=== PATIENT | male | born 1965 ===

== ENCOUNTER 2017-09-17 16:40 | Inpatient (IN) | payer OTHER ==
--- NOTE | 2017-09-17 18:04 | PDOC ---
History of Present Illness - General History Source: Patient Exam Limitations: No Limitations - History of Present Illness Initial Comments: 09/17/17 18:59 The patient is a 52-year-old male with no significant past medical history, who presents to the emergency department with bilateral foot pain for 3 weeks. Patient is homeless and states he is unable to walk secondary to the pain. He states that his feet feel mildly numb accompanied by a burning sensation to light touch. He also complains of intermittent chest pain. He denies any acute trauma or open wounds. The patient denies shortness of breath, headache and dizziness. The patient denies fever, chills, nausea, vomit, diarrhea, or urinary changes. <Sharyn Boyd - Last Filed: 09/17/17 19:00> <Vidal Cartagena - Last Filed: 09/18/17 19:09> <Dustin Nuñez - Last Filed: 09/19/17 17:02> - General Chief Complaint: Pain, Acute Stated Complaint: LEG PAIN Time Seen by Provider: 09/17/17 16:54 Past History <Sharyn Boyd - Last Filed: 09/17/17 19:00> <Vidal Cartagena - Last Filed: 09/18/17 19:09> - Past Medical History CVA: No COPD: No - Suicide/Smoking/Psychosocial Hx Smoking History: Never smoked Have you smoked in the past 12 months: No Number of Cigarettes Smoked Daily: 3 Information on smoking cessation initiated: No Hx Alcohol Use: No Drug/Substance Use Hx: No Substance Use Type: None <Dustin Nuñez - Last Filed: 09/19/17 17:02> - Past Medical History Allergies/Adverse Reactions: Allergies Allergy/AdvReac Type Severity Reaction Status Date / Time No Known Allergies Allergy Verified 09/17/17 17:02 Home Medications: Ambulatory Orders NK [No Known Home Medication] 09/17/17 Review of Systems - Review of Systems Able to Perform ROS?: Yes Comments:: 09/17/17 18:59 A complete review of 10 out of 10 review of systems is taken and is negative apart from what is previously mentioned below and in the HPI. <Sharyn Boyd - Last Filed: 09/17/17 19:00> *Physical Exam - Vital Signs Last Vital Signs Temp Pulse Resp BP Pulse Ox 97.8 F 110 H 18 112/74 100 09/17/17 16:40 09/17/17 16:40 09/17/17 16:40 09/17/17 16:40 09/17/17 16:40 - Physical Exam Comments: 09/17/17 18:59 Vitals: Triage Vital signs reviewed General Appearance: no acute distress, well nourished well developed, Head: Atraumatic, normocephalic Eyes: Pupils equal reactive round, extraocular movement intact Cardiac: Regular rate and rhythm, no murmurs, no rubs, no gallops, Lungs: Clear to auscultation bilateral, good air movement bilaterally, Extremities: Full range of motion to all extremities, no cyanosis, clubbing, or edema Skin: (+) Very poor foot hygiene. (+) Positive onychomycosis. Warm and dry, no rashes or lesions, no petechiae Neuro: AOX3; (+) Strength intact to all extremities but patient is unable to ambulate secondary to pain in his bilateral feet. Psych: normal mood, normal affect <Sharyn Boyd - Last Filed: 09/17/17 19:00> - Vital Signs Last Vital Signs Temp Pulse Resp BP Pulse Ox 97.8 F 110 H 18 112/74 100 09/17/17 16:40 09/17/17 16:40 09/17/17 16:40 09/17/17 16:40 09/17/17 16:40 <Vidal Cartagena - Last Filed: 09/18/17 19:09> - Vital Signs Last Vital Signs Temp Pulse Resp BP Pulse Ox 97.8 F 110 H 18 112/74 100 09/17/17 16:40 09/17/17 16:40 09/17/17 16:40 09/17/17 16:40 09/17/17 16:40 <Dustin Nuñez - Last Filed: 09/19/17 17:02> Heart Score/ECG Review - ECG Impressions Comment:: EKG performed [id number] demonstrates rate of 107, rhythm of sinus, axis equal to normal. No ST elevations no T-wave inversions Interpreted by me <Dustin Nuñez - Last Filed: 09/19/17 17:02> ED Treatment Course - LABORATORY CBC & Chemistry Diagram: 09/17/17 18:10 <Boyd,Sharyn - Last Filed: 09/17/17 19:00> - LABORATORY CBC & Chemistry Diagram: 09/18/17 06:00 09/18/17 06:00 - ADDITIONAL ORDERS Additional order review: 09/17/17 18:10 RBC 4.98 MCV 86.6 MCHC 33.9 RDW 13.1 MPV 7.5 Neutrophils % 83.5 H Lymphocytes % 7.9 L Monocytes % 6.5 Eosinophils % 1.3 Basophils % 0.8 - Medications Given in the ED: ED Medications Discontinued Medications Generic Name Dose Route Start Last Admin Trade Name Terry PRN Reason Stop Dose Admin Acetaminophen 1,000 mg 09/17/17 19:43 09/17/17 20:06 Ofirmev Injection - IVPB 09/17/17 19:44 1,000 mg ONCE ONE Administration Clindamycin Phosphate 600 mg in 50 mls @ 100 mls/hr 09/17/17 19:39 09/17/17 20:40 Cleocin 600 Mg Premix Ivpb - IVPB 09/17/17 20:08 100 mls/hr ONCE ONE Administration Sodium Chloride 1,633 ml 09/17/17 19:42 09/17/17 20:06 Normal Saline - 30 ml/kg (1633 ml) 09/17/17 19:43 1,633 ml IV Administration ONCE STA <Vidal Cartagena - Last Filed: 09/18/17 19:09> - LABORATORY CBC & Chemistry Diagram: 09/19/17 06:45 09/19/17 06:45 <Dustin Nuñez - Last Filed: 09/19/17 17:02> Medical Decision Making - Medical Decision Making 52 years old undomiciled no significant past medical history very poor foot hygiene presents to the ED complaining of pain to his feet bilaterally with inability to ambulate also complaining of very nonspecific intermittent chest discomfort comes and goes no change with exertion no nausea no vomiting On examination his feet are hot and warm to touch they appear chronic however patient was unable to ambulate with assistance We'll check labs x-ray EKG and reassess Reevaluation 7:30 patient's CBC returned at 17 given complaint of foot pain with warmth to touch patient states this is worse than usual we'll cover with clindamycin obtain blood cultures and x-rays and observe for cellulitis 7:30 PM labs pending blood cultures pending x-rays pending care signed out to to follow up labs and dispo A portion of this note was documented by scribe services under my direction I reviewed the details of note within reason and agree with the documentation with the following case summary and management plan written by me <Dustin Nuñez - Last Filed: 09/19/17 17:02> *DC/Admit/Observation/Transfer - Attestations Scribe Attestion: 09/17/17 18:59 Documentation prepared by Sharyn Boyd, acting as certified medical assistant for Dustin Nuñez MD, MD/DO. <Sharyn Boyd - Last Filed: 09/17/17 19:00> <Vidal Cartagena - Last Filed: 09/18/17 19:09> <Dustin Nuñez - Last Filed: 09/19/17 17:02> Diagnosis at time of Disposition: Inability to ambulate due to ankle or foot, Foot pain, bilateral, Bilateral lower leg cellulitis - Discharge Dispostion Condition at time of disposition: Stable
[2017-09-17 18:47] LABS: BASO % 0.8 % (0-2.0); EOS % 1.3 % (0-4.5); HEMATOCRIT 43.1 % (35.4-49); HEMOGLOBIN 14.6 GM/dL (11.7-16.9); LYMPH % 7.9 % (8-40); MCH 29.4 pg (25.7-33.7); MCHC 33.9 g/dl (32.0-35.9); MEAN CELL VOLUME 86.6 fl (80-96); MEAN PLT VOLUME 7.5 fl (7.5-11.1); MONO % 6.5 % (3.8-10.2); NEUT % 83.5 % (42.8-82.8); PLATELET COUNT 330 K/MM3 (134-434); RBC 4.98 M/mm3 (4.00-5.60); RDW 13.1 % (11.9-15.9); WHITE BLOOD COUNT 17.1 K/mm3 (4.0-10.0)
[2017-09-17] MEDS ORDERED: CLINDAMYCIN 600MG PREMIX IVPB 600 MG/50 ML BAG IVPB ONE ×2 (19:39→19:50)
[2017-09-17] MEDS ORDERED: SODIUM CHLORIDE 0.9% 1000 ML INFUS.BAG IV STA (19:42)
[2017-09-17] MEDS ORDERED: ACETAMINOPHEN 1000 MG/100 ML VIAL (NON FORMULARY) IVPB ONE (19:43)
[2017-09-17] MEDS ORDERED: ACETAMINOPHEN INJECTION 100 ML IVPB ONE (19:50)
[2017-09-17 22:07] LABS: PLATELET ESTIMATE ADEQUATE
[2017-09-17 22:10] LABS: ALBUMIN 2.8 g/dl (3.4-5.0); ANION GAP 8 (8-16); BLOOD UREA NITROGEN 20 mg/dL (7-18); CALCIUM 7.7 mg/dL (8.5-10.1); CHLORIDE 103 mmol/L (98-107); CO2 28 mmol/L (21-32); CREATININE 0.8 mg/dL (0.7-1.3); GLUCOSE,RANDOM 155 mg/dL (74-106); POTASSIUM 3.7 mmol/L (3.5-5.1); SGOT/AST 385 U/L (15-37); SGPT/ALT 75 U/L (12-78); SODIUM 139 mmol/L (136-145)
[2017-09-17 22:12] LABS: ALK PHOS 76 U/L (45-117); BILIRUBIN,TOTAL 0.4 mg/dL (0.2-1.0); TOT PROT 5.8 g/dl (6.4-8.2)
--- NOTE | 2017-09-17 23:35 | PDOC ---
*Physical Exam - Vital Signs Last Vital Signs Temp Pulse Resp BP Pulse Ox 97.8 F 110 H 18 112/74 100 09/17/17 16:40 09/17/17 16:40 09/17/17 16:40 09/17/17 16:40 09/17/17 16:40 ED Treatment Course - LABORATORY CBC & Chemistry Diagram: 09/17/17 18:10 09/17/17 20:45 - ADDITIONAL ORDERS Additional order review: Laboratory Results 09/17/17 09/17/17 09/17/17 20:45 20:45 20:45 Sodium 139 Potassium 3.7 Chloride 103 Carbon Dioxide 28 Anion Gap 8 BUN 20 H Creatinine 0.8 Creat Clearance w eGFR > 60 Random Glucose 155 H Lactic Acid 1.6 Calcium 7.7 L Total Bilirubin 0.4 AST 385 H ALT 75 Alkaline Phosphatase 76 Creatine Kinase 75339 H Troponin I < 0.02 Total Protein 5.8 L Albumin 2.8 L 09/17/17 18:10 RBC 4.98 MCV 86.6 MCHC 33.9 RDW 13.1 MPV 7.5 Neutrophils % 83.5 H Lymphocytes % 7.9 L Monocytes % 6.5 Eosinophils % 1.3 Basophils % 0.8 - Medications Given in the ED: ED Medications Discontinued Medications Generic Name Dose Route Start Last Admin Trade Name Freq PRN Reason Stop Dose Admin Acetaminophen 1,000 mg 09/17/17 19:43 09/17/17 20:06 Ofirmev Injection - IVPB 09/17/17 19:44 1,000 mg ONCE ONE Administration Clindamycin Phosphate 600 mg in 50 mls @ 100 mls/hr 09/17/17 19:39 09/17/17 20:40 Cleocin 600 Mg Premix Ivpb - IVPB 09/17/17 20:08 100 mls/hr ONCE ONE Administration Sodium Chloride 1,633 ml 09/17/17 19:42 09/17/17 20:06 Normal Saline - 30 ml/kg (1633 ml) 09/17/17 19:43 1,633 ml IV Administration ONCE STA *DC/Admit/Observation/Transfer Diagnosis at time of Disposition: Inability to ambulate due to ankle or foot, Foot pain, bilateral, Bilateral lower leg cellulitis - Discharge Dispostion Condition at time of disposition: Stable Admit: Yes - Referrals - Patient Instructions - Post Discharge Activity
[2017-09-18] MEDS ORDERED: SODIUM CHLORIDE 1,000 ML IV SCH (00:30)
--- NOTE | 2017-09-18 00:47 | PN ---
Teaching Attending Note Name of Resident: Liya Jose ATTENDING PHYSICIAN STATEMENT I saw and evaluated the patient. I reviewed the resident's note and discussed the case with the resident. I agree with the resident's findings and plan as documented. SUBJECTIVE: 52 M with no pmhx, but had not recently seen PCP who presents with bilateral foot pain. States pain has been there "awhile," but worsened today. notes he lies on the ground for hours at a time, due to the pain of walking. No chest pain or pressure. States he has lost weight due to diarrhea, but notes he has not had diarrhea recently because he does not mix food. Denies any fevers or chills. Also he thinks he is depressed due to his mothers passing several years ago. He does not want to hurt himself or others, but states he is in a "dark place." OBJECTIVE: Physical: VS: Vital Signs Period Temp Pulse Resp BP Sys/Bravo Pulse Ox Last 24 Hr 97.8 F 110 18 112/74 100 GEN: NAD, Resting in bed, AA0X3, Cachetic HEENT: NCAT, PERRL, Throat without erythema or exudates CARD: RRR S1, S2 RESP: CTAB ABD: BSx4, NTD to palpation EXT: Bilateral feet warm and erythmatous, no ulcerations seen, CBCD WBC 17.1 K/mm3 (4.0-10.0) H 09/17/17 18:10 RBC 4.98 M/mm3 (4.00-5.60) 09/17/17 18:10 Hgb 14.6 GM/dL (11.7-16.9) 09/17/17 18:10 Hct 43.1 % (35.4-49) 09/17/17 18:10 MCV 86.6 fl (80-96) 09/17/17 18:10 MCHC 33.9 g/dl (32.0-35.9) 09/17/17 18:10 RDW 13.1 % (11.9-15.9) 09/17/17 18:10 Plt Count 330 K/MM3 (134-434) 09/17/17 18:10 MPV 7.5 fl (7.5-11.1) 09/17/17 18:10 CMP Sodium 139 mmol/L (136-145) 09/17/17 20:45 Potassium 3.7 mmol/L (3.5-5.1) 09/17/17 20:45 Chloride 103 mmol/L (98-107) 09/17/17 20:45 Carbon Dioxide 28 mmol/L (21-32) 09/17/17 20:45 Anion Gap 8 (8-16) 09/17/17 20:45 BUN 20 mg/dL (7-18) H 09/17/17 20:45 Creatinine 0.8 mg/dL (0.7-1.3) 09/17/17 20:45 Creat Clearance w eGFR > 60 (>60) 09/17/17 20:45 Random Glucose 155 mg/dL (74-106) H 09/17/17 20:45 Calcium 7.7 mg/dL (8.5-10.1) L 09/17/17 20:45 Total Bilirubin 0.4 mg/dL (0.2-1.0) 09/17/17 20:45 AST 385 U/L (15-37) H 09/17/17 20:45 ALT 75 U/L (12-78) 09/17/17 20:45 Alkaline Phosphatase 76 U/L (45-117) 09/17/17 20:45 Total Protein 5.8 g/dl (6.4-8.2) L 09/17/17 20:45 Albumin 2.8 g/dl (3.4-5.0) L 09/17/17 20:45 CARDIAC ENZYMES Creatine Kinase 99470 IU/L (39-308) H 09/17/17 20:45 Troponin I < 0.02 ng/ml (0.00-0.05) 09/17/17 20:45 CXR- No acute proces Foot Xray- No acue process EKG: rate of 107, rhythm of sinus, axis equal to normal. No ST elevations no T-wave inversions ASSESSMENT AND PLAN: 52 M with no pmhx who presents with foot pain, found to have rhabdomyolysis and cellulitits 1.) Rhabdomyolysis - IVF - Repeat CK 2.) Bilateral Foot Cellulitis/Pain - ? Neuropathy - C/W Clindamycin - Cx 3.) Atypical Chest Pain - Denies currently - Trend Trop/Ekg 4.) Homeless - SW Consult 5.) Depression? - Psych. Consult 6.) Hyperglycemia - HgbA1c - Fs - RAISS 7.) Dvt Ppx - SCDs Place in Med-Sx
--- NOTE | 2017-09-18 00:51 | HP ---
CHIEF COMPLAINT: bilateral foot pain x 2 weeks PCP: HISTORY OF PRESENT ILLNESS: Pt is a 52 yo M with no signif. PMHx presenting with bilateral pain in his feet for 2 weeks. Pt describes the pain as burning in nature and severe enough to prevent him from weight bearing. There is associated swelling of both legs. No SOB, cough, palpitations or chest pain. Pt is homeless and lives in an alley and has been unable to move from the same position over the past days. No hx of fever, no dysuria, no hx of falls or known loss of consciousness. Pt has limited ingestion of food and described significant weight loss following watery diarrhea about 6 months ago. Pt said he has never been tested for TB, but was tested for HIV and was negative. He however said his last contact with a physician was 2004. Pt was teary when describing his family history as he said he lost his mother 3 years ago to DM and his sister to infection and has been unable to bounce back since then. He also described his unsuccessful attempts at securing housing. He denies drug/ alcohol use, but acknowledges cigarette use 3-8/ day. 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 Smokin-8 cigs/day Alcohol:Denies Drugs: Denies Family History: Father returned to [place]-healthy Mother 3yrs ago- was diabetic sister of 'infection" with diarrheal disease Allergies No Known Allergies Allergy (Verified 09/17/17 17:02) HOME MEDICATIONS: Home Medications Medication Instructions Recorded NK [No Known Home Medication] 09/17/17 REVIEW OF SYSTEMS CONSTITUTIONAL: Absent: fever, chills, diaphoresis, generalized weakness, malaise, loss of appetite, weight change HEENT: Absent: rhinorrhea, nasal congestion, throat pain, throat swelling, difficulty swallowing, mouth swelling, ear pain, eye pain, visual changes CARDIOVASCULAR: Absent: chest pain, syncope, palpitations, irregular heart rate, lightheadedness , peripheral edema RESPIRATORY: Absent: cough, shortness of breath, dyspnea with exertion, orthopnea, wheezing, stridor, hemoptysis GASTROINTESTINAL: Absent: abdominal pain, abdominal distension, nausea, vomiting, diarrhea, constipation, melena, hematochezia GENITOURINARY: Absent: dysuria, frequency, urgency, hesitancy, hematuria, flank pain, genital pain MUSCULOSKELETAL: Absent: myalgia, arthralgia, joint swelling, back pain, neck pain SKIN: Absent: rash, itching, pallor HEMATOLOGIC/IMMUNOLOGIC: Absent: easy bleeding, easy bruising, lymphadenopathy, frequent infections ENDOCRINE: Absent: unexplained weight gain, unexplained weight loss, heat intolerance, cold intolerance NEUROLOGIC: Absent: headache, focal weakness or paresthesias, dizziness, unsteady gait, seizure, mental status changes, bladder or bowel incontinence PSYCHIATRIC: Absent: anxiety, depression, suicidal or homicidal ideation, hallucinations. PHYSICAL EXAMINATION Vital Signs - 24 hr 09/17/17 16:40 Temperature 97.8 F Pulse Rate 110 H Respiratory 18 Rate Blood Pressure 112/74 O2 Sat by Pulse 100 Oximetry (%) GENERAL: Unkempt, cachectic, awake, alert, and oriented to person place and time , in no acute respiratory distress. HEAD: Normal with no signs of trauma. EYES: Pupils equal, round and reactive to light, extraocular movements intact, sclera anicteric, conjunctiva clear. EARS, NOSE, THROAT: Ears normal, nares patent, oropharynx clear without exudates. Moist mucous membranes. NECK: Normal range of motion, supple without lymphadenopathy, JVD, or masses. LUNGS: Prominent ribs, Breath sounds equal, clear to auscultation bilaterally. No wheezes, and no crackles. No accessory muscle use. HEART: S1 and S2 without murmur, rub or gallop. ABDOMEN: Scaphoid, Soft, nontender, normoactive bowel sounds, no guarding, no rebound, no masses. No CVA tenderness MUSCULOSKELETAL: Normal range of motion at all joints. No bony deformities or tenderness. No CVA tenderness. UPPER EXTREMITIES: 2+ pulses, warm, well-perfused. No peripheral edema. LOWER EXTREMITIES: 2+ pulses DP bilaterally, warm, well-perfused. No calf tenderness. Bilateral 1+ peripheral edema, mild hyperemia over ventral surface of feet bilaterally, mild tenderness bilaterally. Marked onychomycosis, with hyperkeratinized soles bilaterally, and dry sloughing soles. Normal sensation bilaterally. Normal tone, 5/5 strength globally NEUROLOGICAL: Cranial nerves II-XII intact. Normal speech. gait not observed PSYCHIATRIC: Talkative, sad, and crying. Good eye contact. Laboratory Results - last 24 hr 09/17/17 09/17/17 09/17/17 18:10 20:45 20:45 WBC 17.1 H RBC 4.98 Hgb 14.6 Hct 43.1 MCV 86.6 MCH 29.4 MCHC 33.9 RDW 13.1 Plt Count 330 MPV 7.5 Neutrophils % 83.5 H Lymphocytes % 7.9 L Monocytes % 6.5 Eosinophils % 1.3 Basophils % 0.8 Platelet Estimate Adequate Platelet Comment No clotting detected Sodium 139 Potassium 3.7 Chloride 103 Carbon Dioxide 28 Anion Gap 8 BUN 20 H Creatinine 0.8 Creat Clearance w eGFR > 60 Random Glucose 155 H Lactic Acid 1.6 Calcium 7.7 L Total Bilirubin 0.4 AST 385 H ALT 75 Alkaline Phosphatase 76 Creatine Kinase Creatine Kinase Index CK-MB (CK-2) Troponin I Total Protein 5.8 L Albumin 2.8 L 09/17/17 20:45 WBC RBC Hgb Hct MCV MCH MCHC RDW Plt Count MPV Neutrophils % Lymphocytes % Monocytes % Eosinophils % Basophils % Platelet Estimate Platelet Comment Sodium Potassium Chloride Carbon Dioxide Anion Gap BUN Creatinine Creat Clearance w eGFR Random Glucose Lactic Acid Calcium Total Bilirubin AST ALT Alkaline Phosphatase Creatine Kinase 79077 H Creatine Kinase Index 0.9 CK-MB (CK-2) 160.851 H Troponin I < 0.02 Total Protein Albumin ASSESSMENT/PLAN: 52 yo homeless tearful M with no signif. PMHx presenting with bilateral pain in his feet for 2 weeks. Sepsis 2/2 to Bilateral cellulitis of feet R/O peripheral neuropathy: WBC-17.1, OK-109 Likely 2/2 to onychomycosis Continue Clindamycin 600mg Q8H IVF Normal saline@125/hr Xray feet- no fracture or acute pathology glucose-155 Hgb A1c, family hx of DM Panculture CXR- no acute pathology, shows hyperinflation Bilateral Leg swelling: No evidence of pulm edema Could be due to cellulitis or nutritional deficiency [employer] work consult Xray- no evidence of fracture of or osteomyelitis CRP/ESR Rhabdomyolysis: No clear history of fall but pt [place] long [place]- [address]30 Negative trops IVF Normal saline@125/hr Hyperglycemia: Glu 155, family hx ISS-ACHS BGM-ACHS Diabetic diet Hgb A1c Major Depression R/O bipolar disease or drug use disorder: sad, tearing, unable to maintain a job since of mom Psych consult- Dr Bishop [place] Social works- homelessness FEN [id number] Monitor lytes and replete as needed Diabetic diet PPx: Visit type - Emergency Visit Emergency Visit: Yes ED Registration Date: 09/18/17 Care time: The patient presented to the Emergency Department on the above date and was hospitalized for further evaluation of their emergent condition. - New Patient This patient is new to me today: Yes Date on this admission: 09/18/17 - Critical Care Critical Care patient: No Hospitalist Screening - Colonoscopy Questionnaire Colonoscopy Questionnaire: Colonoscopy Questionnaire - Patient: 50 - 75 years old and never had a screening colonoscopy: Yes History of colon or rectal polyps, or CA: Unknown History of IBD, Crohn's disease or UC: Unknown History of abdominal radiation therapy as a child: Unknown - Relative: 1 with colon or rectal CA, or polyps at age 60 or younger: Unknown Colon or rectal CA diagnosed at age 45 or younger: Unknown Multiple relatives with colon or rectal CA: Unknown - Outcome: Screening Result: Positive Screen
[2017-09-18] MEDS ORDERED: FOLIC ACID INJECTION - 1 MG, THIAMINE HCL 100 MG, MULTIVIT INJECTION ADULT 10 ML in SOD... IVPB ONE ×2 (01:09→13:00)
[2017-09-18 01:49] LABS: URINE APPEARANCE CLEAR; URINE BILIRUBIN NEGATIVE (NEGATIVE); URINE COLOR DKYELLOW; URINE GLUCOSE (UA) NEGATIVE (NEGATIVE); URINE KETONE TRACE (NEGATIVE); URINE LEUK ESTERASE NEGATIVE (NEGATIVE); URINE NITRITE NEGATIVE (NEGATIVE)
[2017-09-18 01:57] LABS: URINE PROTEIN 1+ (NEGATIVE)
[2017-09-18] MEDS ORDERED: CLINDAMYCIN 600MG PREMIX IVPB 600 MG/50 ML BAG IVPB ONE (02:05)
[2017-09-18] MEDS: CLINDAMYCIN 600MG PREMIX IVPB 600 MG/50 ML BAG IVPB SCH ×2 (02:12→10:00)
[2017-09-18 03:09] LABS: EPI CELLS RARE /HPF (FEW); URINE BACTERIA FEW /hpf (NONE SEEN); URINE HYALINE CAST 1 /lpf; URINE MUCUS FEW
[2017-09-18 04:55] VITALS: BMI 15.4
[2017-09-18] MEDS: INSULIN SLIDING SCALE (NOVOLOG) 1 VIAL SQ SCH ×4 (06:24→21:04)
[2017-09-18] MEDS ORDERED: INSULIN SLIDING SCALE (NOVOLOG) 1 VIAL SQ SCH (07:00)
[2017-09-18 08:04] LABS: BASO % 0.8 % (0-2.0); EOS % 9.3 % (0-4.5); HEMATOCRIT 37.2 % (35.4-49); HEMOGLOBIN 12.5 GM/dL (11.7-16.9); LYMPH % 18.5 % (8-40); MCH 29.3 pg (25.7-33.7); MCHC 33.7 g/dl (32.0-35.9); MEAN CELL VOLUME 86.9 fl (80-96); MEAN PLT VOLUME 6.9 fl (7.5-11.1); MONO % 11.2 % (3.8-10.2); NEUT % 60.2 % (42.8-82.8); PLATELET COUNT 276 K/MM3 (134-434); RBC 4.28 M/mm3 (4.00-5.60); RDW 13.1 % (11.9-15.9); WHITE BLOOD COUNT 10.4 K/mm3 (4.0-10.0)
[2017-09-18 08:07] LABS: INR 1.04 (0.82-1.09); PROTHROMBIN TIME (PATIENT) 11.8 SEC (9.98-11.88)
[2017-09-18 08:10] LABS: ACTIVATED PTT 28.4 SECONDS (26.9-34.4)
[2017-09-18 08:20] LABS: ALBUMIN 2.8 g/dl (3.4-5.0); ANION GAP 6 (8-16); BILIRUBIN,TOTAL 0.6 mg/dL (0.2-1.0); CHLORIDE 106 mmol/L (98-107); CO2 29 mmol/L (21-32); CREATININE 0.6 mg/dL (0.7-1.3); GLUCOSE,RANDOM 94 mg/dL (74-106); MAGNESIUM 2.2 mg/dL (1.8-2.4); PHOSPHOROUS 3.4 mg/dL (2.5-4.9); POTASSIUM 4.3 mmol/L (3.5-5.1); SGOT/AST 336 U/L (15-37); SODIUM 141 mmol/L (136-145)
[2017-09-18 08:25] LABS: ALK PHOS 72 U/L (45-117); BLOOD UREA NITROGEN 15 mg/dL (7-18); SGPT/ALT 82 U/L (12-78); TOT PROT 5.8 g/dl (6.4-8.2)
[2017-09-18 09:07] LABS: COCAINE, UR NEGATIVE ng/ml (CUTOFF=300); METHADONE, UR NEGATIVE ng/ml (CUTOFF=300); OPIATES, URI NEGATIVE ng/ml (CUTOFF=300); PHENCYCLIDINE,URINE NEGATIVE ng/ml (CUTOFF=25); URINE AMPHETAMINES NEGATIVE ng/ml (CUTOFF=500); URINE BARBITURATES NEGATIVE ng/ml (CUTOFF=200); URINE BENZODIAZEPINES NEGATIVE ng/ml (CUTOFF=200)
[2017-09-18] MEDS ORDERED: THIAMINE HCL 200 MG/2 ML VIAL IVPB SCH (10:00)
[2017-09-18] MEDS ORDERED: MULTIVIT INJ. ADULT COMBO WITH VIT K 1 COMBO 10 ML VIAL IV SCH (10:00)
--- NOTE | 2017-09-18 10:39 | EKG ---
Test Reason : Blood Pressure : / mmHG Vent. Rate : 107 BPM Atrial Rate : 107 BPM P-R Int : 130 ms QRS Dur : 080 ms QT Int : 324 ms P-R-T Axes : 080 080 070 degrees QTc Int : 432 ms POOR DATA QUALITY, INTERPRETATION MAY BE ADVERSELY AFFECTED SINUS TACHYCARDIA POSSIBLE LEFT ATRIAL ENLARGEMENT BORDERLINE ECG NO PREVIOUS ECGS AVAILABLE Confirmed by AWA HINDS, CLAUDIA ([id number]) on 09/18/2017 10:39:08 AM Referred By: Confirmed By:CLAUDIA BILLINGS MD
[2017-09-18] MEDS: PANTOPRAZOLE 40 MG TABLET (FP) PO SCH (12:19)
[2017-09-18] MEDS ORDERED: THIAMINE HCL 200 MG/2 ML VIAL IVPB ONE (13:00)
--- NOTE | 2017-09-18 15:10 | PN ---
Teaching Attending Note Name of Resident: Gurwinder Looney ATTENDING PHYSICIAN STATEMENT I saw and evaluated the patient. I reviewed the resident's note and discussed the case with the resident. I agree with the resident's findings and plan as documented. SUBJECTIVE: no fever or chills, pain in feet . no pain in muscles . no N/V . reports weight loss. RUQ pain x 15 min this am , resolved at time of evaluation OBJECTIVE: NAD , thin , flat affect Cv :RRR Lungs : CTAB Abd: soft, N, ND , NL BS, RUQ tenderness and epigastrica tenderness Ext: no edema on legs . b/l tenderness and non pitting edema on feet . Dp 2+ b/ l. no erythema . slightly increased warmth of feet .no ulcers. scally skin on toes and doles ASSESSMENT AND PLAN: 52 y/o man with no recent medical care who presented with b/l foot pain and inability to ambulate . He was found to have Rhabdo 1- Acute rhabdomyoysis : due to prolonged immobilization - cont IVF - follow CPK 2- Feet pain: no signs of cellulitis . in addition b/l cellulitis is extremely rare. possible neuropathy probably acuteleukocytosis was due ot stress reactinand dehydration and now resolved . dc clinda and monitor check B12 , folate , give thiamine 3- RUQ pain: no clear etiology. AST and ALT elevation could be just due to rhabdo but can't r/o acute biliary etiology - check US of RUQ - follow LFTS 4- Weight loss: either to poor access to food, hypothyroidism. or malignancy - check TSH - check OB in stool - cxray with no masses - rest of cancer w/u as outpt dispo: HLOC
--- NOTE | 2017-09-18 16:53 | PN ---
Physical Exam: SUBJECTIVE: Patient seen and examined at bedside. complain of b/l feet pain , generalized weakness. no fever, chills , n/v/d/c. pt reports abdominal pain last few min. OBJECTIVE: Vital Signs Period Temp Pulse Resp BP Sys/Bravo Pulse Ox Last 24 Hr 96.2 F-98.8 F 84-97 16-20 96-117/60-74 97-100 GENERAL: AAOx3 , with fatigue and generalized weakness HEAD: NC/AT, long cano. EYES: EOMI, Conjunctiva clear, sclera anicteric ENT: dry mucous membrane , NECK: Supple, no JVD, no lymphadenoapthy LUNGS: CTA B/L, no crackles no wheezing no accessory muscle use. HEART: RRR, NSR, normal s1, s2, murmur no M/R/G ABDOMEN: Soft, ND, RUQ tenderness, +BS 4 Q, no CVA Tenderness LOWER EXTREMITIES: no leg edema but feet edema and tenderness, left leg warmer , scaly skin with no skin break +2DP pulse, no calf tenderness NEUROLOGICAL: No focal deficit. Normal speech. gait not observed. PSYCHIATRIC: Cooperative. Good eye contact. Appropriate mood and affect. SKIN: Warm, dry,skaly skin on feet with no skin break Laboratory Results - last 24 hr 09/17/17 09/17/17 09/17/17 18:10 20:45 20:45 WBC 17.1 H RBC 4.98 Hgb 14.6 Hct 43.1 MCV 86.6 MCH 29.4 MCHC 33.9 RDW 13.1 Plt Count 330 MPV 7.5 Neutrophils % 83.5 H Lymphocytes % 7.9 L Monocytes % 6.5 Eosinophils % 1.3 Basophils % 0.8 Platelet Estimate Adequate Platelet Comment No clotting detected ESR PT with INR INR PTT (Actin FS) Sodium 139 Potassium 3.7 Chloride 103 Carbon Dioxide 28 Anion Gap 8 BUN 20 H Creatinine 0.8 Creat Clearance w eGFR > 60 POC Glucometer Random Glucose 155 H Hemoglobin A1c % Lactic Acid 1.6 Calcium 7.7 L Phosphorus Magnesium Total Bilirubin 0.4 AST 385 H ALT 75 Alkaline Phosphatase 76 Creatine Kinase Creatine Kinase Index CK-MB (CK-2) Troponin I C-Reactive Protein Total Protein 5.8 L Albumin 2.8 L Lipase TSH Urine Color Urine Appearance Urine pH Ur Specific [place] Urine Protein Urine Glucose (UA) Urine Ketones Urine Blood Urine Nitrite Urine Bilirubin Urine Urobilinogen Ur Leukocyte Esterase Urine WBC (Auto) Urine RBC (Auto) Ur Epithelial Cells Urine Bacteria Hyaline Casts Urine Mucus Opiates Screen Methadone Screen Barbiturate Screen Phencyclidine Screen Ur Amphetamines Screen MDMA (Ecstasy) Screen Benzodiazepines Screen Cocaine Screen U Marijuana (THC) Screen 09/17/17 09/18/17 09/18/17 20:45 01:42 06:00 WBC 10.4 H D RBC 4.28 Hgb 12.5 D Hct 37.2 MCV 86.9 MCH 29.3 MCHC 33.7 RDW 13.1 Plt Count 276 MPV 6.9 L Neutrophils % 60.2 D Lymphocytes % 18.5 D Monocytes % 11.2 H Eosinophils % 9.3 H D Basophils % 0.8 Platelet Estimate Platelet Comment ESR PT with INR INR PTT (Actin FS) Sodium Potassium Chloride Carbon Dioxide Anion Gap BUN Creatinine Creat Clearance w eGFR POC Glucometer Random Glucose Hemoglobin A1c % Lactic Acid Calcium Phosphorus Magnesium Total Bilirubin AST ALT Alkaline Phosphatase Creatine Kinase 40481 H Creatine Kinase Index 0.9 CK-MB (CK-2) 160.851 H Troponin I < 0.02 C-Reactive Protein Total Protein Albumin Lipase TSH Urine Color Dkyellow Urine Appearance Clear Urine pH 6.0 Ur Specific [place] 1.034 Urine Protein 1+ H Urine Glucose (UA) Negative Urine Ketones Trace H Urine Blood 2+ H Urine Nitrite Negative Urine Bilirubin Negative Urine Urobilinogen 2.0 Ur Leukocyte Esterase Negative Urine WBC (Auto) 2 Urine RBC (Auto) 9 Ur Epithelial Cells Rare Urine Bacteria Few Hyaline Casts 1 Urine Mucus Few Opiates Screen Methadone Screen Barbiturate Screen Phencyclidine Screen Ur Amphetamines Screen MDMA (Ecstasy) Screen Benzodiazepines Screen Cocaine Screen U Marijuana (THC) Screen 09/18/17 09/18/17 09/18/17 06:00 06:00 06:00 WBC RBC Hgb Hct MCV MCH MCHC RDW Plt Count MPV Neutrophils % Lymphocytes % Monocytes % Eosinophils % Basophils % Platelet Estimate Platelet Comment ESR PT with INR 11.80 INR 1.04 PTT (Actin FS) 28.4 Sodium 141 Potassium 4.3 Chloride 106 Carbon Dioxide 29 Anion Gap 6 L BUN 15 D Creatinine 0.6 L D Creat Clearance w eGFR > 60 POC Glucometer Random Glucose 94 D Hemoglobin A1c % Lactic Acid Calcium 8.0 L Phosphorus 3.4 Magnesium 2.2 Total Bilirubin 0.6 D AST 336 H ALT 82 H Alkaline Phosphatase 72 Creatine Kinase 49741 H Creatine Kinase Index 0.6 CK-MB (CK-2) 77.592 H Troponin I C-Reactive Protein 2.4 H Total Protein 5.8 L Albumin 2.8 L Lipase 146 TSH 0.86 Urine Color Urine Appearance Urine pH Ur Specific [place] Urine Protein Urine Glucose (UA) Urine Ketones Urine Blood Urine Nitrite Urine Bilirubin Urine Urobilinogen Ur Leukocyte Esterase Urine WBC (Auto) Urine RBC (Auto) Ur Epithelial Cells Urine Bacteria Hyaline Casts Urine Mucus Opiates Screen Methadone Screen Barbiturate Screen Phencyclidine Screen Ur Amphetamines Screen MDMA (Ecstasy) Screen Benzodiazepines Screen Cocaine Screen U Marijuana (THC) Screen 09/18/17 09/18/17 09/18/17 06:00 06:00 06:00 WBC RBC Hgb Hct MCV MCH MCHC RDW Plt Count MPV Neutrophils % Lymphocytes % Monocytes % Eosinophils % Basophils % Platelet Estimate Platelet Comment ESR 15 PT with INR INR PTT (Actin FS) Sodium Potassium Chloride Carbon Dioxide Anion Gap BUN Creatinine Creat Clearance w eGFR POC Glucometer Random Glucose Hemoglobin A1c % 5.6 Lactic Acid Calcium Phosphorus Magnesium Total Bilirubin AST ALT Alkaline Phosphatase Creatine Kinase Cancelled Creatine Kinase Index CK-MB (CK-2) Troponin I C-Reactive Protein Total Protein Albumin Lipase TSH Urine Color Urine Appearance Urine pH Ur Specific [place] Urine Protein Urine Glucose (UA) Urine Ketones Urine Blood Urine Nitrite Urine Bilirubin Urine Urobilinogen Ur Leukocyte Esterase Urine WBC (Auto) Urine RBC (Auto) Ur Epithelial Cells Urine Bacteria Hyaline Casts Urine Mucus Opiates Screen Methadone Screen Barbiturate Screen Phencyclidine Screen Ur Amphetamines Screen MDMA (Ecstasy) Screen Benzodiazepines Screen Cocaine Screen U Marijuana (THC) Screen 09/18/17 09/18/17 06:30 11:16 WBC RBC Hgb Hct MCV MCH MCHC RDW Plt Count MPV Neutrophils % Lymphocytes % Monocytes % Eosinophils % Basophils % Platelet Estimate Platelet Comment ESR PT with INR INR PTT (Actin FS) Sodium Potassium Chloride Carbon Dioxide Anion Gap BUN Creatinine Creat Clearance w eGFR POC Glucometer 190 Random Glucose Hemoglobin A1c % Lactic Acid Calcium Phosphorus Magnesium Total Bilirubin AST ALT Alkaline Phosphatase Creatine Kinase Creatine Kinase Index CK-MB (CK-2) Troponin I C-Reactive Protein Total Protein Albumin Lipase TSH Urine Color Urine Appearance Urine pH Ur Specific [place] Urine Protein Urine Glucose (UA) Urine Ketones Urine Blood Urine Nitrite Urine Bilirubin Urine Urobilinogen Ur Leukocyte Esterase Urine WBC (Auto) Urine RBC (Auto) Ur Epithelial Cells Urine Bacteria Hyaline Casts Urine Mucus Opiates Screen Negative Methadone Screen Negative Barbiturate Screen Negative Phencyclidine Screen Negative Ur Amphetamines Screen Negative MDMA (Ecstasy) Screen Negative Benzodiazepines Screen Negative Cocaine Screen Negative U Marijuana (THC) Screen Negative Active Medications Generic Name Dose Route Start Last Admin Trade Name Freq PRN Reason Stop Dose Admin Sodium Chloride 1,000 mls @ 125 mls/hr 09/18/17 00:30 09/18/17 01:13 Normal Saline - IV 125 mls/hr ASDIR NARCISA Administration Folic Acid 1 mg/ Thiamine HCl 1,000 mls @ 125 mls/hr 09/18/17 13:00 09/18/17 13:30 100 mg/ Multivitamins/Minerals IVPB 09/18/17 20:59 125 mls/hr 10 ml/ Sodium Chloride ONCE ONE Administration Insulin Aspart 1 vial 09/18/17 07:00 09/18/17 16:30 Novolog Vial Sliding Scale - SQ Not Given ACHS [facility] Protocol Pantoprazole Sodium 40 mg 09/18/17 11:45 09/18/17 12:19 Protonix - PO 40 mg DAILY NARCISA Administration CBCD WBC 10.4 K/mm3 (4.0-10.0) H D 09/18/17 06:00 RBC 4.28 M/mm3 (4.00-5.60) 09/18/17 06:00 Hgb 12.5 GM/dL (11.7-16.9) D 09/18/17 06:00 Hct 37.2 % (35.4-49) 09/18/17 06:00 MCV 86.9 fl (80-96) 09/18/17 06:00 MCHC 33.7 g/dl (32.0-35.9) 09/18/17 06:00 RDW 13.1 % (11.9-15.9) 09/18/17 06:00 Plt Count 276 K/MM3 (134-434) 09/18/17 06:00 MPV 6.9 fl (7.5-11.1) L 09/18/17 06:00 CMP Sodium 141 mmol/L (136-145) 09/18/17 06:00 Potassium 4.3 mmol/L (3.5-5.1) 09/18/17 06:00 Chloride 106 mmol/L (98-107) 09/18/17 06:00 Carbon Dioxide 29 mmol/L (21-32) 09/18/17 06:00 Anion Gap 6 (8-16) L 09/18/17 06:00 BUN 15 mg/dL (7-18) D 09/18/17 06:00 Creatinine 0.6 mg/dL (0.7-1.3) L D 09/18/17 06:00 Creat Clearance w eGFR > 60 (>60) 09/18/17 06:00 Calcium 8.0 mg/dL (8.5-10.1) L 09/18/17 06:00 Total Bilirubin 0.6 mg/dL (0.2-1.0) D 09/18/17 06:00 AST 336 U/L (15-37) H 09/18/17 06:00 ALT 82 U/L (12-78) H 09/18/17 06:00 Alkaline Phosphatase 72 U/L (45-117) 09/18/17 06:00 Total Protein 5.8 g/dl (6.4-8.2) L 09/18/17 06:00 Albumin 2.8 g/dl (3.4-5.0) L 09/18/17 06:00 CBC, BMP 09/18/17 06:00 09/18/17 06:00 ASSESSMENT/PLAN: 52 year old homeless male with no pmh and no recent medical care who came to ED with 2 weeks history of feet pain and difficulty to ambulate and was found to have rhabdomyolysis . # Rhabdomyolysis * pt homeless , less mobile recently due to feet pain * CPK [id number]....[id number] * Continue IV fluids NS 125 CC/hr * Tylenol for pain 650 mg po q6hr * # Feet pain,B/L , Acute with possible peripheral neuropathy * unlikely cellulitis , possible nunez bite vs acute reaction to sever dehydration * IV fluids * pain control * B12, Folic acid * started multivitamin and B12 * # RUQ pain, Acute, unclear etiology * AST , LFT elevated possible due to rhabdo vs biliary cholic * US abdomen * F/u LFts * # weight loss * pt reports 20 pound weigh loss within one year possible low oral intake vs cancer vs another etiology * TSH , HgbA1c * Occult blood * cxr no acute pathology * F.u as out pt for complete work up. * High calorie diet. * # FEN * 100 CC/hr NS * E:WNL , monitor * N: high calories diet # Proph * DVT: SCDS both legs * GI: Protonix 40 mg po daily # Dispo * admit to med surg Visit type - Emergency Visit Emergency Visit: Yes ED Registration Date: 09/18/17 Care time: The patient presented to the Emergency Department on the above date and was hospitalized for further evaluation of their emergent condition. - New Patient This patient is new to me today: Yes Date on this admission: 09/18/17 - Critical Care Critical Care patient: No - Discharge Referral Referred to [facility] Med P.C.: No
[2017-09-18] MEDS ORDERED: INSULIN (NOVOLOG) ASPART 100 UNITS/ML 10ML VIAL ONE (18:28)
[2017-09-19] MEDS: SODIUM CHLORIDE 1,000 ML IV SCH (00:45)
[2017-09-19] MEDS: INSULIN SLIDING SCALE (NOVOLOG) 1 VIAL SQ SCH ×4 (06:10→21:27)
[2017-09-19 07:54] LABS: EOS % 10.5 % (0-4.5); HEMATOCRIT 35.3 % (35.4-49); HEMOGLOBIN 11.9 GM/dL (11.7-16.9); LYMPH % 26.2 % (8-40); MCH 29.6 pg (25.7-33.7); MCHC 33.8 g/dl (32.0-35.9); MEAN CELL VOLUME 87.6 fl (80-96); MEAN PLT VOLUME 6.9 fl (7.5-11.1); MONO % 10.6 % (3.8-10.2); NEUT % 51.7 % (42.8-82.8); PLATELET COUNT 250 K/MM3 (134-434); RBC 4.03 M/mm3 (4.00-5.60); RDW 13.1 % (11.9-15.9); WHITE BLOOD COUNT 8.9 K/mm3 (4.0-10.0)
[2017-09-19 08:15] LABS: ALBUMIN 2.5 g/dl (3.4-5.0); ANION GAP 10 (8-16); BILIRUBIN,TOTAL 0.2 mg/dL (0.2-1.0); BLOOD UREA NITROGEN 12 mg/dL (7-18); CALCIUM 7.9 mg/dL (8.5-10.1); CHLORIDE 105 mmol/L (98-107); CO2 26 mmol/L (21-32); CREATININE 0.5 mg/dL (0.7-1.3); GLUCOSE,RANDOM 82 mg/dL (74-106); POTASSIUM 4.2 mmol/L (3.5-5.1); SGOT/AST 215 U/L (15-37); SGPT/ALT 72 U/L (12-78); SODIUM 141 mmol/L (136-145); TOT PROT 5.6 g/dl (6.4-8.2)
[2017-09-19 08:29] LABS: PREALBUMIN 15.9 mg/dl (20-40)
[2017-09-19 08:40] LABS: ALK PHOS 62 U/L (45-117)
[2017-09-19] MEDS ORDERED: PT OWN MED DRAWER 7, Y5N ONE (09:12)
[2017-09-19] MEDS: MULTIVITAMINS (DAILY MVI) TABLET (FP) PO SCH (10:10)
[2017-09-19] MEDS: PANTOPRAZOLE 40 MG TABLET (FP) PO SCH (10:10)
[2017-09-19] MEDS: FOLIC ACID 1 MG TABLET (FP) PO SCH (10:10)
[2017-09-19] MEDS ORDERED: DOCUSATE SODIUM 100 MG CAPSULE (FP) PO ONE ×2 (10:51→15:00)
[2017-09-19] MEDS: POLYETHYLENE GLYCOL 3350 119 GM BTL PO SCH (11:00)
--- NOTE | 2017-09-19 12:37 | PN ---
Physical Exam: SUBJECTIVE: Patient seen and examined at bedside. complain of b/l feet pain , generalized weakness. no fever, chills , n/v/d/c. OBJECTIVE: Vital Signs Period Temp Pulse Resp BP Sys/Bravo Pulse Ox Last 24 Hr 98.1 F-98.8 F 75-97 18-20 93-117/54-68 98-100 GENERAL: AAOx3 , with fatigue and generalized weakness HEAD: NC/AT, long cano. EYES: EOMI, Conjunctiva clear, sclera anicteric ENT: dry mucous membrane , NECK: Supple, no JVD, no lymphadenoapthy LUNGS: CTA B/L, no crackles no wheezing no accessory muscle use. HEART: RRR, NSR, normal s1, s2, murmur no M/R/G ABDOMEN: Soft, ND, RUQ tenderness, +BS 4 Q, no CVA Tenderness LOWER EXTREMITIES: no leg edema but feet edema and tenderness, left leg warmer , scaly skin with no skin break +2DP pulse, no calf tenderness NEUROLOGICAL: No focal deficit. Normal speech. gait not observed. PSYCHIATRIC: Cooperative. Good eye contact. Appropriate mood and affect. SKIN: Warm, dry,skaly skin on feet with no skin break Laboratory Results - last 24 hr 09/18/17 09/18/17 09/18/17 06:23 16:23 20:43 WBC RBC Hgb Hct MCV MCH MCHC RDW Plt Count MPV Neutrophils % Lymphocytes % Monocytes % Eosinophils % Basophils % Sodium Potassium Chloride Carbon Dioxide Anion Gap BUN Creatinine Creat Clearance w eGFR POC Glucometer 254 107 128 Random Glucose Hemoglobin A1c % Calcium Total Bilirubin AST ALT Alkaline Phosphatase Creatine Kinase Creatine Kinase Index CK-MB (CK-2) Total Protein Albumin Prealbumin Vitamin B12 Serum Folate TSH 09/19/17 09/19/17 09/19/17 05:58 06:45 06:45 WBC RBC Hgb Hct MCV MCH MCHC RDW Plt Count MPV Neutrophils % Lymphocytes % Monocytes % Eosinophils % Basophils % Sodium 141 Potassium 4.2 Chloride 105 Carbon Dioxide 26 Anion Gap 10 BUN 12 Creatinine 0.5 L Creat Clearance w eGFR > 60 POC Glucometer 146 Random Glucose 82 Hemoglobin A1c % Calcium 7.9 L Total Bilirubin 0.2 D AST 215 H D ALT 72 Alkaline Phosphatase 62 Creatine Kinase Creatine Kinase Index CK-MB (CK-2) Total Protein 5.6 L Albumin 2.5 L Prealbumin 15.9 L Vitamin B12 403 Serum Folate 9 TSH 0.46 D 09/19/17 09/19/17 09/19/17 06:45 06:45 06:45 WBC 8.9 RBC 4.03 Hgb 11.9 Hct 35.3 L MCV 87.6 MCH 29.6 MCHC 33.8 RDW 13.1 Plt Count 250 MPV 6.9 L Neutrophils % 51.7 Lymphocytes % 26.2 D Monocytes % 10.6 H Eosinophils % 10.5 H Basophils % 1.0 Sodium Potassium Chloride Carbon Dioxide Anion Gap BUN Creatinine Creat Clearance w eGFR POC Glucometer Random Glucose Hemoglobin A1c % 5.7 D Calcium Total Bilirubin AST ALT Alkaline Phosphatase Creatine Kinase 6669 H Creatine Kinase Index 0.2 CK-MB (CK-2) 18.771 H Total Protein Albumin Prealbumin Vitamin B12 Serum Folate TSH Active Medications Generic Name Dose Route Start Last Admin Trade Name Freq PRN Reason Stop Dose Admin Folic Acid 1 mg 09/19/17 10:00 09/19/17 10:10 Folic Acid - PO 1 mg DAILY NARCISA Administration Sodium Chloride 1,000 mls @ 100 mls/hr 09/19/17 00:30 09/19/17 00:45 Normal Saline - IV 09/20/17 10:29 100 mls/hr ASDIR NARCISA Administration Insulin Aspart 1 vial 09/18/17 07:00 09/19/17 06:10 Novolog Vial Sliding Scale - SQ Not Given ACHS NARCISA Protocol Multivitamins/Minerals/Vitamin C 1 tab 09/19/17 10:00 09/19/17 10:10 Tab-A-Vit - PO 1 tab DAILY NARCISA Administration Pantoprazole Sodium 40 mg 09/18/17 11:45 09/19/17 10:10 Protonix - PO 40 mg DAILY NARCISA Administration Polyethylene Glycol 17 gm 09/19/17 11:00 Miralax (For Daily Use) - PO DAILY NARCISA Senna 1 tab 09/19/17 11:00 Senna - PO BID NARICSA CBC, BMP 09/19/17 06:45 09/19/17 06:45 ASSESSMENT/PLAN: 52 year old homeless male with no pmh and no recent medical care who came to ED with 2 weeks history of feet pain and difficulty to ambulate and was found to have rhabdomyolysis . # Rhabdomyolysis * pt homeless , less mobile recently due to feet pain * CPK [id number]....[id number] ....[id number] * Continue IV fluids NS 125 CC/hr * Tylenol for pain 650 mg po q6hr * # Feet pain,B/L , Acute with possible peripheral neuropathy * unlikely cellulites ,most likely nunez bite * IV fluids * pain control * B12, Folic acid normal * started multivitamin and B12 * # RUQ pain, Acute, improved * AST , LFT elevated, due to rhabdo vs biliary cholic , trending down * US abdomen * F/u LFts * # weight loss * pt reports 20 pound weigh loss within one year possible low oral intake vs cancer vs another etiology * TSH 0.86 , HgbA1c 5.6 * Occult blood negative * cxr no acute pathology * F.u as out pt for complete work up. * High calorie diet. * GI consulted for possible endoscopy , colonoscopy tomorrow # Depression * psychc consulted recommended Remeron 15mg po hs for depression and appetite. # FEN * 100 CC/hr NS * E:WNL , monitor * N: high calories diet # Proph * DVT: SCDS both legs * GI: Protonix 40 mg po daily # Dispo * admit to med surg Visit type - Emergency Visit Emergency Visit: Yes ED Registration Date: 09/18/17 Care time: The patient presented to the Emergency Department on the above date and was hospitalized for further evaluation of their emergent condition. - New Patient This patient is new to me today: Yes Date on this admission: 09/18/17 - Critical Care Critical Care patient: No - Discharge Referral Referred to [facility] Med P.C.: No
[2017-09-19] MEDS ORDERED: INSULIN (NOVOLOG) ASPART 100 UNITS/ML 10ML VIAL ONE ×2 (13:56→20:51)
--- NOTE | 2017-09-19 15:12 | CON.PSY ---
Psychiatry Consult Chief Complaint: 52 year old Homeless cecilia man seen for psych evaluation> Patient has been unemployed fopr the past 3 yrs and been living in Shelters. report of weight loss. Symptoms: reports: Depressed Mood - Previous Psychiatric Treatment Outpatient: None Inpatient: None - Previous Substance Abuse Treatment Outpatient: None Inpatient: None - Current Medications Current Medications: Active Medications Folic Acid (Folic Acid -) 1 mg PO DAILY [facility] Last Admin: 09/19/17 10:10 Dose: 1 mg Sodium Chloride (Normal Saline -) 1,000 mls @ 100 mls/hr IV ASDIR NARCISA Stop: 09/20/17 10:29 Last Admin: 09/19/17 00:45 Dose: 100 mls/hr Insulin Aspart (Novolog Vial Sliding Scale -) 1 vial SQ ACHS [facility] PRN Reason: Protocol Last Admin: 09/19/17 06:10 Dose: Not Given Multivitamins/Minerals/Vitamin C (Tab-A-Vit -) 1 tab PO DAILY [facility] Last Admin: 09/19/17 10:10 Dose: 1 tab Pantoprazole Sodium (Protonix -) 40 mg PO DAILY [facility] Last Admin: 09/19/17 10:10 Dose: 40 mg Polyethylene Glycol (Miralax (For Daily Use) -) 17 gm PO DAILY [facility] Senna (Senna -) 1 tab PO BID [facility] - Allergies Allergies: Allergies Allergy/AdvReac Type Severity Reaction Status Date / Time No Known Allergies Allergy Verified 09/17/17 17:02 - Current Living Status Usual Living Arrangement: Alone - Current Mental Status Evaluation Appearance: Disheveled Attitude: Guarded - Affect Affect: Constrictive Appropriateness: Appropriate to Content - Mood Mood: Depressed - Speech/Language Expressive: Coherent - Psychomotor Activity Psychomotor Activity: Slowed - Thought Process Thought Process: Intact - Thought Content Hallucinations: Absent Delusions: Absent - Self Perception Self Perception: No Impairment - Cognition Attention: Alert Orientation: Time Memory, Immediate Recall: Intact Memory, Short Term: 3/3 Memory, Remote with Promptin/3 - Concentration Serial Sevens Intact: Yes Simple Calculations Intact: Yes - Abstraction Proverb Interpretation: Intact Judgement: Intact - Insight Insight: Intact - Impulse Control Impulse Control: Good Control - Suicidal Ideation Suicidal Ideation: No - Homicidal Ideation Homicidal Ideation: No Assessment/Plan 1) Remeron 15mg po hs for depression and appetite.
--- NOTE | 2017-09-19 15:39 | PN ---
Teaching Attending Note Name of Resident: Gurwinder Looney ATTENDING PHYSICIAN STATEMENT I saw and evaluated the patient. I reviewed the resident's note and discussed the case with the resident. I agree with the resident's findings and plan as documented. SUBJECTIVE: no fever or chills, reports early satiety , and intermittent constipation still pain in feet OBJECTIVE: NAD , thin, more cooperative today Cv :RRR Lungs : CTAB Abd: soft, ND , NL BS, RUQ tenderness and epigastric tenderness improved frm yesterday Ext: no edema on legs . b/l tenderness and non pitting edema on feet . Dp 2+ b/ l and 2+ PT b/l . no erythema . nL warmth of feet .no ulcers. scally skin on toes and doles ASSESSMENT AND PLAN: 52 y/o man with no recent medical care who presented with b/l foot pain and inability to ambulate . He was found to have Rhabdo 1- Acute Rhabdomyoysis : due to prolonged immobilization - cont IVF - follow CPK ( improved ) 2- Feet pain: no signs of cellulitis . possible diagnosis is nunez bite ( grade 1 ) ? neuropathy - off Abx . - warming of feet 3- RUQ pain: no clear etiology. AST and ALT elevation could be just due to rhabdo but can't r/o acute biliary etiology - US of RUQ with no cholycystitis of CBD dilation - follow LFTS 4- Weight loss: either to poor access to food,. or malignancy . no hypothyroidism - check OB in stool - cxray with no masses - d/w Dr. Montes. EGD and colo tomorrow 5- malnutrition : dietitian consult dispo: [facility]
[2017-09-19] MEDS: SENNOSIDES 8.6MG TABLET (FP) PO SCH ×2 (15:52→21:27)
--- NOTE | 2017-09-19 16:01 | CON.GI ---
Consult Consult Specialty:: GI Reason for Consultation:: significant wt loss - History of Present Illness History of Present Illness: A 52M homeless x 3 years admitted with Rhabdomyolysis, isolates AST elevations, leukocytosis, lower extremities issues was discovered to have 20 lb weight loss over 1 months. Denies fever, chills, nausea, vomiting, hematemesis, dysphagia, odynophagia, jaundice, abdominal pain, altered bowels, pencil-thin, or ribbon- like stools. Denies melena, hematochezia. Poor diet x 3 year however no recent chages recently. Denies elicit drugs, alcohol, tobacco use. Never had screening colonoscopy. No significant family history. - History Source History Provided By: Patient - Alcohol/Substance Use Hx Alcohol Use: No - Smoking History Smoking history: Current some day smoker Have you smoked in the past 12 months: No Aproximately how many cigarettes per day: 3 - Social History Usual Living Arrangement: Alone Home Medications - Allergies Allergies/Adverse Reactions: Allergies Allergy/AdvReac Type Severity Reaction Status Date / Time No Known Allergies Allergy Verified 09/17/17 17:02 - Home Medications Home Medications: Ambulatory Orders NK [No Known Home Medication] 09/17/17 Family Disease History - Family Disease History Family History: Unremarkable Review of Systems Findings/Remarks: Please refer to HPI and H&P. Physical Exam-GI Vital Signs: Vital Signs Temperature 98.5 F 09/19/17 14:02 Pulse Rate 92 H 09/19/17 14:02 Respiratory Rate 18 09/19/17 14:02 Blood Pressure 95/50 09/19/17 14:02 O2 Sat by Pulse Oximetry (%) 98 09/18/17 20:59 Constitutional: Yes: No Distress, Calm, Cachectic, Poor Hygeine, Thin Eyes: Yes: Conjunctiva Clear HENT: Yes: Atraumatic Neck: Yes: Supple Cardiovascular: Yes: Regular Rate and Rhythm Respiratory: Yes: Regular ...Auscultate: Yes: Normoactive Bowel Sounds Neurological: Yes: Alert, Oriented Labs: CBC, BMP 09/19/17 06:45 09/19/17 06:45 INR, PTT INR 1.04 (0.82-1.09) 09/18/17 06:00 Laboratory Tests 09/17/17 09/17/17 09/17/17 18:10 20:45 20:45 WBC 17.1 H RBC 4.98 Hgb 14.6 Hct 43.1 MCV 86.6 MCH 29.4 MCHC 33.9 RDW 13.1 Plt Count 330 MPV 7.5 Neutrophils % 83.5 H Lymphocytes % 7.9 L Monocytes % 6.5 Eosinophils % 1.3 Basophils % 0.8 Platelet Estimate Adequate Platelet Comment No clotting detected ESR PT with INR INR PTT (Actin FS) Sodium 139 Potassium 3.7 Chloride 103 Carbon Dioxide 28 Anion Gap 8 BUN 20 H Creatinine 0.8 Creat Clearance w eGFR > 60 POC Glucometer Random Glucose 155 H Hemoglobin A1c % Lactic Acid 1.6 Calcium 7.7 L Phosphorus Magnesium Total Bilirubin 0.4 AST 385 H ALT 75 Alkaline Phosphatase 76 Creatine Kinase Creatine Kinase Index CK-MB (CK-2) Troponin I C-Reactive Protein Total Protein 5.8 L Albumin 2.8 L Prealbumin Lipase Vitamin B12 Serum Folate TSH Urine Color Urine Appearance Urine pH Ur Specific [place] Urine Protein Urine Glucose (UA) Urine Ketones Urine Blood Urine Nitrite Urine Bilirubin Urine Urobilinogen Ur Leukocyte Esterase Urine WBC (Auto) Urine RBC (Auto) Ur Epithelial Cells Urine Bacteria Hyaline Casts Urine Mucus Opiates Screen Methadone Screen Barbiturate Screen Phencyclidine Screen Ur Amphetamines Screen MDMA (Ecstasy) Screen Benzodiazepines Screen Cocaine Screen U Marijuana (THC) Screen 09/17/17 09/18/17 09/18/17 20:45 01:42 06:00 WBC 10.4 H D RBC 4.28 Hgb 12.5 D Hct 37.2 MCV 86.9 MCH 29.3 MCHC 33.7 RDW 13.1 Plt Count 276 MPV 6.9 L Neutrophils % 60.2 D Lymphocytes % 18.5 D Monocytes % 11.2 H Eosinophils % 9.3 H D Basophils % 0.8 Platelet Estimate Platelet Comment ESR PT with INR INR PTT (Actin FS) Sodium Potassium Chloride Carbon Dioxide Anion Gap BUN Creatinine Creat Clearance w eGFR POC Glucometer Random Glucose Hemoglobin A1c % Lactic Acid Calcium Phosphorus Magnesium Total Bilirubin AST ALT Alkaline Phosphatase Creatine Kinase 23688 H Creatine Kinase Index 0.9 CK-MB (CK-2) 160.851 H Troponin I < 0.02 C-Reactive Protein Total Protein Albumin Prealbumin Lipase Vitamin B12 Serum Folate TSH Urine Color Dkyellow Urine Appearance Clear Urine pH 6.0 Ur Specific [place] 1.034 Urine Protein 1+ H Urine Glucose (UA) Negative Urine Ketones Trace H Urine Blood 2+ H Urine Nitrite Negative Urine Bilirubin Negative Urine Urobilinogen 2.0 Ur Leukocyte Esterase Negative Urine WBC (Auto) 2 Urine RBC (Auto) 9 Ur Epithelial Cells Rare Urine Bacteria Few Hyaline Casts 1 Urine Mucus Few Opiates Screen Methadone Screen Barbiturate Screen Phencyclidine Screen Ur Amphetamines Screen MDMA (Ecstasy) Screen Benzodiazepines Screen Cocaine Screen U Marijuana (THC) Screen 09/18/17 09/18/17 09/18/17 06:00 06:00 06:00 WBC RBC Hgb Hct MCV MCH MCHC RDW Plt Count MPV Neutrophils % Lymphocytes % Monocytes % Eosinophils % Basophils % Platelet Estimate Platelet Comment ESR PT with INR 11.80 INR 1.04 PTT (Actin FS) 28.4 Sodium 141 Potassium 4.3 Chloride 106 Carbon Dioxide 29 Anion Gap 6 L BUN 15 D Creatinine 0.6 L D Creat Clearance w eGFR > 60 POC Glucometer Random Glucose 94 D Hemoglobin A1c % Lactic Acid Calcium 8.0 L Phosphorus 3.4 Magnesium 2.2 Total Bilirubin 0.6 D AST 336 H ALT 82 H Alkaline Phosphatase 72 Creatine Kinase 57495 H Creatine Kinase Index 0.6 CK-MB (CK-2) 77.592 H Troponin I C-Reactive Protein 2.4 H Total Protein 5.8 L Albumin 2.8 L Prealbumin Lipase 146 Vitamin B12 Serum Folate TSH 0.86 Urine Color Urine Appearance Urine pH Ur Specific [place] Urine Protein Urine Glucose (UA) Urine Ketones Urine Blood Urine Nitrite Urine Bilirubin Urine Urobilinogen Ur Leukocyte Esterase Urine WBC (Auto) Urine RBC (Auto) Ur Epithelial Cells Urine Bacteria Hyaline Casts Urine Mucus Opiates Screen Methadone Screen Barbiturate Screen Phencyclidine Screen Ur Amphetamines Screen MDMA (Ecstasy) Screen Benzodiazepines Screen Cocaine Screen U Marijuana (THC) Screen 09/18/17 09/18/17 09/18/17 06:00 06:00 06:00 WBC RBC Hgb Hct MCV MCH MCHC RDW Plt Count MPV Neutrophils % Lymphocytes % Monocytes % Eosinophils % Basophils % Platelet Estimate Platelet Comment ESR 15 PT with INR INR PTT (Actin FS) Sodium Potassium Chloride Carbon Dioxide Anion Gap BUN Creatinine Creat Clearance w eGFR POC Glucometer Random Glucose Hemoglobin A1c % 5.6 Lactic Acid Calcium Phosphorus Magnesium Total Bilirubin AST ALT Alkaline Phosphatase Creatine Kinase Cancelled Creatine Kinase Index CK-MB (CK-2) Troponin I C-Reactive Protein Total Protein Albumin Prealbumin Lipase Vitamin B12 Serum Folate TSH Urine Color Urine Appearance Urine pH Ur Specific [place] Urine Protein Urine Glucose (UA) Urine Ketones Urine Blood Urine Nitrite Urine Bilirubin Urine Urobilinogen Ur Leukocyte Esterase Urine WBC (Auto) Urine RBC (Auto) Ur Epithelial Cells Urine Bacteria Hyaline Casts Urine Mucus Opiates Screen Methadone Screen Barbiturate Screen Phencyclidine Screen Ur Amphetamines Screen MDMA (Ecstasy) Screen Benzodiazepines Screen Cocaine Screen U Marijuana (THC) Screen 09/18/17 09/18/17 09/18/17 06:23 06:30 11:16 WBC RBC Hgb Hct MCV MCH MCHC RDW Plt Count MPV Neutrophils % Lymphocytes % Monocytes % Eosinophils % Basophils % Platelet Estimate Platelet Comment ESR PT with INR INR PTT (Actin FS) Sodium Potassium Chloride Carbon Dioxide Anion Gap BUN Creatinine Creat Clearance w eGFR POC Glucometer 254 190 Random Glucose Hemoglobin A1c % Lactic Acid Calcium Phosphorus Magnesium Total Bilirubin AST ALT Alkaline Phosphatase Creatine Kinase Creatine Kinase Index CK-MB (CK-2) Troponin I C-Reactive Protein Total Protein Albumin Prealbumin Lipase Vitamin B12 Serum Folate TSH Urine Color Urine Appearance Urine pH Ur Specific [place] Urine Protein Urine Glucose (UA) Urine Ketones Urine Blood Urine Nitrite Urine Bilirubin Urine Urobilinogen Ur Leukocyte Esterase Urine WBC (Auto) Urine RBC (Auto) Ur Epithelial Cells Urine Bacteria Hyaline Casts Urine Mucus Opiates Screen Negative Methadone Screen Negative Barbiturate Screen Negative Phencyclidine Screen Negative Ur Amphetamines Screen Negative MDMA (Ecstasy) Screen Negative Benzodiazepines Screen Negative Cocaine Screen Negative U Marijuana (THC) Screen Negative 09/18/17 09/18/17 09/19/17 16:23 20:43 05:58 WBC RBC Hgb Hct MCV MCH MCHC RDW Plt Count MPV Neutrophils % Lymphocytes % Monocytes % Eosinophils % Basophils % Platelet Estimate Platelet Comment ESR PT with INR INR PTT (Actin FS) Sodium Potassium Chloride Carbon Dioxide Anion Gap BUN Creatinine Creat Clearance w eGFR POC Glucometer 107 128 146 Random Glucose Hemoglobin A1c % Lactic Acid Calcium Phosphorus Magnesium Total Bilirubin AST ALT Alkaline Phosphatase Creatine Kinase Creatine Kinase Index CK-MB (CK-2) Troponin I C-Reactive Protein Total Protein Albumin Prealbumin Lipase Vitamin B12 Serum Folate TSH Urine Color Urine Appearance Urine pH Ur Specific [place] Urine Protein Urine Glucose (UA) Urine Ketones Urine Blood Urine Nitrite Urine Bilirubin Urine Urobilinogen Ur Leukocyte Esterase Urine WBC (Auto) Urine RBC (Auto) Ur Epithelial Cells Urine Bacteria Hyaline Casts Urine Mucus Opiates Screen Methadone Screen Barbiturate Screen Phencyclidine Screen Ur Amphetamines Screen MDMA (Ecstasy) Screen Benzodiazepines Screen Cocaine Screen U Marijuana (THC) Screen 09/19/17 09/19/17 09/19/17 06:45 06:45 06:45 WBC RBC Hgb Hct MCV MCH MCHC RDW Plt Count MPV Neutrophils % Lymphocytes % Monocytes % Eosinophils % Basophils % Platelet Estimate Platelet Comment ESR PT with INR INR PTT (Actin FS) Sodium 141 Potassium 4.2 Chloride 105 Carbon Dioxide 26 Anion Gap 10 BUN 12 Creatinine 0.5 L Creat Clearance w eGFR > 60 POC Glucometer Random Glucose 82 Hemoglobin A1c % 5.7 D Lactic Acid Calcium 7.9 L Phosphorus Magnesium Total Bilirubin 0.2 D AST 215 H D ALT 72 Alkaline Phosphatase 62 Creatine Kinase Creatine Kinase Index CK-MB (CK-2) Troponin I C-Reactive Protein Total Protein 5.6 L Albumin 2.5 L Prealbumin 15.9 L Lipase Vitamin B12 403 Serum Folate 9 TSH 0.46 D Urine Color Urine Appearance Urine pH Ur Specific [place] Urine Protein Urine Glucose (UA) Urine Ketones Urine Blood Urine Nitrite Urine Bilirubin Urine Urobilinogen Ur Leukocyte Esterase Urine WBC (Auto) Urine RBC (Auto) Ur Epithelial Cells Urine Bacteria Hyaline Casts Urine Mucus Opiates Screen Methadone Screen Barbiturate Screen Phencyclidine Screen Ur Amphetamines Screen MDMA (Ecstasy) Screen Benzodiazepines Screen Cocaine Screen U Marijuana (THC) Screen 09/19/17 09/19/17 06:45 06:45 WBC 8.9 RBC 4.03 Hgb 11.9 Hct 35.3 L MCV 87.6 MCH 29.6 MCHC 33.8 RDW 13.1 Plt Count 250 MPV 6.9 L Neutrophils % 51.7 Lymphocytes % 26.2 D Monocytes % 10.6 H Eosinophils % 10.5 H Basophils % 1.0 Platelet Estimate Platelet Comment ESR PT with INR INR PTT (Actin FS) Sodium Potassium Chloride Carbon Dioxide Anion Gap BUN Creatinine Creat Clearance w eGFR POC Glucometer Random Glucose Hemoglobin A1c % Lactic Acid Calcium Phosphorus Magnesium Total Bilirubin AST ALT Alkaline Phosphatase Creatine Kinase 6669 H Creatine Kinase Index 0.2 CK-MB (CK-2) 18.771 H Troponin I C-Reactive Protein Total Protein Albumin Prealbumin Lipase Vitamin B12 Serum Folate TSH Urine Color Urine Appearance Urine pH Ur Specific [place] Urine Protein Urine Glucose (UA) Urine Ketones Urine Blood Urine Nitrite Urine Bilirubin Urine Urobilinogen Ur Leukocyte Esterase Urine WBC (Auto) Urine RBC (Auto) Ur Epithelial Cells Urine Bacteria Hyaline Casts Urine Mucus Opiates Screen Methadone Screen Barbiturate Screen Phencyclidine Screen Ur Amphetamines Screen MDMA (Ecstasy) Screen Benzodiazepines Screen Cocaine Screen U Marijuana (THC) Screen Imaging - Results Ultrasound: Report Reviewed Problem List - Problems (1) Rhabdomyolysis Code(s): M62.82 - RHABDOMYOLYSIS (2) Weight loss, abnormal Code(s): R63.4 - ABNORMAL WEIGHT LOSS (3) Bilateral lower leg cellulitis Code(s): L03.116 - CELLULITIS OF LEFT LOWER LIMB; L03.115 - CELLULITIS OF RIGHT LOWER LIMB Assessment/Plan abnormal, acute weight loss in a 52M Plan EGD/colonoscopy to r/o GI malignancy. Discussed with the patient. consider testing for HIV
[2017-09-19] MEDS ORDERED: BISACODYL 5 MG TABLET.DR (FP) PO ONE (16:07)
[2017-09-19] MEDS ORDERED: PEG 3350/NA SULF BICARB CL/KCL 4000 ML SOLN.RECON PO ONE (18:00)
[2017-09-19] MEDS: MIRTAZAPINE 15 MG TABLET (FP) PO SCH (21:27)
[2017-09-20] MEDS: SODIUM CHLORIDE 1,000 ML IV SCH ×2 (00:30→02:49)
[2017-09-20] MEDS ORDERED: morphine SULFATE 4 MG/ML VIAL IVPUSH ONE (02:08)
[2017-09-20] MEDS: INSULIN SLIDING SCALE (NOVOLOG) 1 VIAL SQ SCH ×4 (06:43→21:15)
[2017-09-20] MEDS ORDERED: INSULIN (NOVOLOG) ASPART 100 UNITS/ML 10ML VIAL ONE ×2 (06:44→11:00)
[2017-09-20 08:09] LABS: BASO % 0.6 % (0-2.0); EOS % 7.4 % (0-4.5); HEMATOCRIT 37.4 % (35.4-49); HEMOGLOBIN 12.4 GM/dL (11.7-16.9); MCH 29.1 pg (25.7-33.7); MCHC 33.1 g/dl (32.0-35.9); MEAN CELL VOLUME 87.9 fl (80-96); MEAN PLT VOLUME 6.9 fl (7.5-11.1); MONO % 6.7 % (3.8-10.2); NEUT % 70.3 % (42.8-82.8); PLATELET COUNT 285 K/MM3 (134-434); RBC 4.26 M/mm3 (4.00-5.60); RDW 13.2 % (11.9-15.9); WHITE BLOOD COUNT 9.2 K/mm3 (4.0-10.0)
[2017-09-20] MEDS ORDERED: LIDOCAINE HCL/PF 2% SDV 5ML VIAL ONE (08:36)
[2017-09-20] MEDS ORDERED: PHENYLEPHRINE HCL 10 MG/1 ML SINGLE DOSE VIAL ONE (08:37)
[2017-09-20] MEDS ORDERED: PROPOFOL 20 ML ONE ×5 (08:37)
[2017-09-20] MEDS ORDERED: LIDOCAINE VISCOUS 2% ORAL/TOP 20 ML UNIT-DOSE CUP ONE (08:37)
[2017-09-20] MEDS ORDERED: SUCCINYLCHOLINE CHLORIDE 200 MG/10 ML VIAL ONE (08:37)
[2017-09-20] MEDS ORDERED: TETRACAINE/BENZOCAINE/BUTAMBEN 20 GM SPR TP ONE (08:42)
[2017-09-20] MEDS: POLYETHYLENE GLYCOL 3350 119 GM BTL PO SCH (09:40)
[2017-09-20] MEDS: MULTIVITAMINS (DAILY MVI) TABLET (FP) PO SCH (09:40)
[2017-09-20] MEDS: FOLIC ACID 1 MG TABLET (FP) PO SCH (09:40)
[2017-09-20] MEDS: SENNOSIDES 8.6MG TABLET (FP) PO SCH ×2 (09:40→21:16)
[2017-09-20] MEDS: PANTOPRAZOLE 40 MG TABLET (FP) PO SCH (09:40)
[2017-09-20] MEDS ORDERED: GABAPENTIN 100 MG CAPSULE (FP) PO SCH (10:00)
[2017-09-20 10:08] LABS: ALBUMIN 3.1 g/dl (3.4-5.0); ALK PHOS 73 U/L (45-117); ANION GAP 8 (8-16); BILIRUBIN,DIRECT < 0.2 mg/dL (0.0-0.2); BILIRUBIN,TOTAL 0.3 mg/dL (0.2-1.0); BLOOD UREA NITROGEN 14 mg/dL (7-18); CALCIUM 7.8 mg/dL (8.5-10.1); CHLORIDE 105 mmol/L (98-107); CO2 27 mmol/L (21-32); CREATININE 0.7 mg/dL (0.7-1.3); GLUCOSE,RANDOM 71 mg/dL (74-106); SGOT/AST 212 U/L (15-37); SGPT/ALT 86 U/L (12-78); SODIUM 140 mmol/L (136-145); TOT PROT 6.1 g/dl (6.4-8.2)
--- NOTE | 2017-09-20 10:16 | PN ---
Progress Note, Physician History of Present Illness: Didn't take colon prep otherwise no events. - Current Medication List Current Medications: Active Medications Folic Acid (Folic Acid -) 1 mg PO DAILY [facility] Last Admin: 09/20/17 09:40 Dose: 1 mg Sodium Chloride (Normal Saline -) 1,000 mls @ 100 mls/hr IV ASDIR [facility] Stop: 09/20/17 10:29 Last Admin: 09/20/17 02:49 Dose: 100 mls/hr Insulin Aspart (Novolog Vial Sliding Scale -) 1 vial SQ ACHS [facility] PRN Reason: Protocol Last Admin: 09/20/17 06:43 Dose: Not Given Mirtazapine (Remeron -) 15 mg PO HS [facility] Last Admin: 09/19/17 21:27 Dose: 15 mg Multivitamins/Minerals/Vitamin C (Tab-A-Vit -) 1 tab PO DAILY [facility] Last Admin: 09/20/17 09:40 Dose: 1 tab Pantoprazole Sodium (Protonix -) 40 mg PO DAILY [facility] Last Admin: 09/20/17 09:40 Dose: 40 mg Polyethylene Glycol (Miralax (For Daily Use) -) 17 gm PO DAILY [facility] Last Admin: 09/20/17 09:40 Dose: Not Given Senna (Senna -) 1 tab PO BID [facility] Last Admin: 09/20/17 09:40 Dose: Not Given - Objective Vital Signs: Vital Signs Temperature 98.2 F 09/20/17 05:00 Pulse Rate 71 09/20/17 05:00 Respiratory Rate 18 09/20/17 05:00 Blood Pressure 115/51 09/20/17 05:00 O2 Sat by Pulse Oximetry (%) 96 09/20/17 00:00 Constitutional: Yes: No Distress, Calm, Thin Neurological: Yes: Alert, Oriented Labs: CBC, BMP 09/20/17 06:35 09/20/17 06:35 INR, PTT INR 1.04 (0.82-1.09) 09/18/17 06:00 CBCD WBC 9.2 K/mm3 (4.0-10.0) 09/20/17 06:35 RBC 4.26 M/mm3 (4.00-5.60) 09/20/17 06:35 Hgb 12.4 GM/dL (11.7-16.9) 09/20/17 06:35 Hct 37.4 % (35.4-49) 09/20/17 06:35 MCV 87.9 fl (80-96) 09/20/17 06:35 MCHC 33.1 g/dl (32.0-35.9) 09/20/17 06:35 RDW 13.2 % (11.9-15.9) 09/20/17 06:35 Plt Count 285 K/MM3 (134-434) 09/20/17 06:35 MPV 6.9 fl (7.5-11.1) L 09/20/17 06:35 CMP Sodium 140 mmol/L (136-145) 09/20/17 06:35 Potassium 4.0 mmol/L (3.5-5.1) 09/20/17 06:35 Chloride 105 mmol/L (98-107) 09/20/17 06:35 Carbon Dioxide 27 mmol/L (21-32) 09/20/17 06:35 Anion Gap 8 (8-16) 09/20/17 06:35 BUN 14 mg/dL (7-18) 09/20/17 06:35 Creatinine 0.7 mg/dL (0.7-1.3) D 09/20/17 06:35 Creat Clearance w eGFR > 60 (>60) 09/20/17 06:35 Calcium 7.8 mg/dL (8.5-10.1) L 09/20/17 06:35 Total Bilirubin 0.3 mg/dL (0.2-1.0) D 09/20/17 06:35 AST 212 U/L (15-37) H 09/20/17 06:35 ALT 86 U/L (12-78) H 09/20/17 06:35 Alkaline Phosphatase 73 U/L (45-117) 09/20/17 06:35 Total Protein 6.1 g/dl (6.4-8.2) L 09/20/17 06:35 Albumin 3.1 g/dl (3.4-5.0) L D 09/20/17 06:35 Problem List - Problems (1) Rhabdomyolysis Code(s): M62.82 - RHABDOMYOLYSIS (2) Weight loss, abnormal Code(s): R63.4 - ABNORMAL WEIGHT LOSS (3) Bilateral lower leg cellulitis Code(s): L03.116 - CELLULITIS OF LEFT LOWER LIMB; L03.115 - CELLULITIS OF RIGHT LOWER LIMB Assessment/Plan abnormal, acute weight loss in a 52M Plan EGD/colonoscopy to r/o GI malignancy, or consider CT with contrast A/P, CEA , AFP, CA 19-9 if unable to take prep. consider testing for HIV
--- NOTE | 2017-09-20 18:51 | PN ---
Physical Exam: SUBJECTIVE:Patient seen and examined at bedside. complain of b/l feet pain , numbness but leg swelling is improving, no fever, chills , n/v/d/c. OBJECTIVE: Vital Signs Period Temp Pulse Resp BP Sys/Bravo Pulse Ox Last 24 Hr 97.6 F-98.2 F 68-90 16-18 100-141/51-82 96-96 GENERAL: AAOx3 , with fatigue and generalized weakness HEAD: NC/AT, long cano. EYES: EOMI, Conjunctiva clear, sclera anicteric ENT: dry mucous membrane , NECK: Supple, no JVD, no lymphadenoapthy LUNGS: CTA B/L, no crackles no wheezing no accessory muscle use. HEART: RRR, NSR, normal s1, s2, murmur no M/R/G ABDOMEN: Soft, ND, RUQ tenderness, +BS 4 Q, no CVA Tenderness LOWER EXTREMITIES: no leg edema but feet edema and tenderness, left leg warmer , scaly skin with no skin break +2DP pulse, no calf tenderness NEUROLOGICAL: No focal deficit. Normal speech. gait not observed. PSYCHIATRIC: Cooperative. Good eye contact. Appropriate mood and affect. SKIN: Warm, dry,skaly skin on feet with no skin break Laboratory Results - last 24 hr 09/19/17 09/19/17 09/19/17 11:48 17:16 21:24 WBC RBC Hgb Hct MCV MCH MCHC RDW Plt Count MPV Neutrophils % Lymphocytes % Monocytes % Eosinophils % Basophils % Sodium Potassium Chloride Carbon Dioxide Anion Gap BUN Creatinine Creat Clearance w eGFR POC Glucometer 172 121 151 Random Glucose Calcium Total Bilirubin Direct Bilirubin AST ALT Alkaline Phosphatase Creatine Kinase Creatine Kinase Index CK-MB (CK-2) Total Protein Albumin Stool Occult Blood HIV 1&2 Antibody Screen HIV P24 Antigen 09/20/17 09/20/17 09/20/17 06:35 06:35 06:35 WBC 9.2 RBC 4.26 Hgb 12.4 Hct 37.4 MCV 87.9 MCH 29.1 MCHC 33.1 RDW 13.2 Plt Count 285 MPV 6.9 L Neutrophils % 70.3 D Lymphocytes % 15.0 D Monocytes % 6.7 Eosinophils % 7.4 H Basophils % 0.6 Sodium 140 Potassium 4.0 Chloride 105 Carbon Dioxide 27 Anion Gap 8 BUN 14 Creatinine 0.7 D Creat Clearance w eGFR > 60 POC Glucometer Random Glucose 71 L Calcium 7.8 L Total Bilirubin 0.3 D Direct Bilirubin < 0.2 AST 212 H ALT 86 H Alkaline Phosphatase 73 Creatine Kinase 4758 H Creatine Kinase Index 0.1 CK-MB (CK-2) 8.076 H Total Protein 6.1 L Albumin 3.1 L D Stool Occult Blood HIV 1&2 Antibody Screen Negative HIV P24 Antigen Negative 09/20/17 09/20/17 09/20/17 06:40 08:00 10:40 WBC RBC Hgb Hct MCV MCH MCHC RDW Plt Count MPV Neutrophils % Lymphocytes % Monocytes % Eosinophils % Basophils % Sodium Potassium Chloride Carbon Dioxide Anion Gap BUN Creatinine Creat Clearance w eGFR POC Glucometer 98 Random Glucose Calcium Total Bilirubin Direct Bilirubin AST ALT Alkaline Phosphatase Creatine Kinase Cancelled Creatine Kinase Index CK-MB (CK-2) Total Protein Albumin Stool Occult Blood Negative HIV 1&2 Antibody Screen HIV P24 Antigen 09/20/17 09/20/17 11:11 16:26 WBC RBC Hgb Hct MCV MCH MCHC RDW Plt Count MPV Neutrophils % Lymphocytes % Monocytes % Eosinophils % Basophils % Sodium Potassium Chloride Carbon Dioxide Anion Gap BUN Creatinine Creat Clearance w eGFR POC Glucometer 161 90 Random Glucose Calcium Total Bilirubin Direct Bilirubin AST ALT Alkaline Phosphatase Creatine Kinase Creatine Kinase Index CK-MB (CK-2) Total Protein Albumin Stool Occult Blood HIV 1&2 Antibody Screen HIV P24 Antigen Active Medications Generic Name Dose Route Start Last Admin Trade Name Freq PRN Reason Stop Dose Admin Folic Acid 1 mg 09/19/17 10:00 09/20/17 09:40 Folic Acid - PO 1 mg DAILY NARCISA Administration Insulin Aspart 1 vial 09/18/17 07:00 09/20/17 16:31 Novolog Vial Sliding Scale - SQ Not Given [facility] Protocol Mirtazapine 15 mg 09/19/17 22:00 09/19/17 21:27 Remeron - PO 15 mg HS NARCISA Administration Multivitamins/Minerals/Vitamin C 1 tab 09/19/17 10:00 09/20/17 09:40 Tab-A-Vit - PO 1 tab DAILY NARCISA Administration Pantoprazole Sodium 40 mg 09/18/17 11:45 09/20/17 09:40 Protonix - PO 40 mg DAILY [facility] Administration Polyethylene Glycol 17 gm 09/19/17 11:00 09/20/17 09:40 Miralax (For Daily Use) - PO Not Given DAILY NARCISA Senna 1 tab 09/19/17 11:00 09/20/17 09:40 Senna - PO Not Given BID NARCISA CBC, BMP 09/20/17 06:35 09/20/17 06:35 ASSESSMENT/PLAN: 52 year old homeless male with no pmh and no recent medical care who came to ED with 2 weeks history of feet pain and difficulty to ambulate and was found to have rhabdomyolysis . # Rhabdomyolysis * pt homeless , less mobile recently due to feet pain * CPK [id number] ....[id number] * Continue IV fluids NS 125 CC/hr * Tylenol for pain 650 mg po q6hr * # Feet pain,B/L , Acute with possible peripheral neuropathy * unlikely cellulitis ,most likely nunez bite * IV fluids * pain control * B12, Folic acid normal * started multivitamin and B12 * # RUQ pain, Acute, improved * AST , LFT elevated, due to rhabdo vs biliary cholic , trending down * US abdomen * F/u LFts * # weight loss * pt reports 20 pound weigh loss within one year possible low oral intake vs cancer vs another etiology * TSH 0.86 , HgbA1c 5.6 * Occult blood pending * cxr no acute pathology * F.u as out pt for complete work up. * High calorie diet. * GI consulted for possible endoscopy , colonoscopy tomorrow # Depression * psychconsulted recommended Remeron 15mg po hs for depression and appetite. # FEN * 100 CC/hr NS * E:WNL , monitor * N: high calories diet # Proph * DVT: SCDS both legs * GI: Protonix 40 mg po daily # Dispo * admit to med surg Visit type - Emergency Visit Emergency Visit: Yes ED Registration Date: 09/18/17 Care time: The patient presented to the Emergency Department on the above date and was hospitalized for further evaluation of their emergent condition. - New Patient This patient is new to me today: No - Critical Care Critical Care patient: No
--- NOTE | 2017-09-20 19:20 | PN ---
Teaching Attending Note Name of Resident: Gurwinder Looney ATTENDING PHYSICIAN STATEMENT I saw and evaluated the patient. I reviewed the resident's note and discussed the case with the resident. I agree with the resident's findings and plan as documented. SUBJECTIVE: no fever or chills. pain in feet was better . OBJECTIVE: NAD , thin, more cooperative today Cv :RRR Lungs : CTAB Ext: no edema on legs . b/l tenderness and non pitting edema on feet( much improved today ) . a blister on L foot dorsum . Dp 2+ b/l and 2+ PT b/l . no erythema . nL warmth of feet .no ulcers. scally skin on toes and doles ASSESSMENT AND PLAN: 52 y/o man with no recent medical care who presented with b/l foot pain and inability to ambulate . He was found to have Rhabdo 1- Acute Rhabdomyoysis : due to prolonged immobilization - cont IVF - follow CPK ( improved ) 2- Feet pain: no signs of cellulitis . possible diagnosis is nunez bite ( grade 2 )( blistering ) improved - off Abx . 3- RUQ pain: no clear etiology. AST and ALT elevation could be just due to rhabdo - follow LFTS 4- Weight loss: need to r/o malignancy did not comply with colon prep. - plan for EGD and colo on Saturday with miralx preb 5- malnutrition : dietitian consult dispo: OC
[2017-09-20] MEDS ORDERED: PT OWN MED DRAWER 7, Y5N ONE (20:19)
[2017-09-20] MEDS: MIRTAZAPINE 15 MG TABLET (FP) PO SCH (21:15)
[2017-09-21] MEDS ORDERED: IBUPROFEN 400 MG TABLET (FP) PO ONE ×2 (04:08→06:46)
[2017-09-21] MEDS: INSULIN SLIDING SCALE (NOVOLOG) 1 VIAL SQ SCH (06:18)
[2017-09-21] MEDS ORDERED: INSULIN (NOVOLOG) ASPART 100 UNITS/ML 10ML VIAL ONE (06:54)
[2017-09-21 09:04] LABS: ALBUMIN 2.8 g/dl (3.4-5.0); ANION GAP 7 (8-16); BLOOD UREA NITROGEN 17 mg/dL (7-18); CHLORIDE 106 mmol/L (98-107); CO2 27 mmol/L (21-32); GLUCOSE,RANDOM 111 mg/dL (74-106); POTASSIUM 4.3 mmol/L (3.5-5.1); SGOT/AST 108 U/L (15-37); SGPT/ALT 71 U/L (12-78); SODIUM 140 mmol/L (136-145)
[2017-09-21 09:07] LABS: ALK PHOS 72 U/L (45-117); BILIRUBIN,TOTAL 0.5 mg/dL (0.2-1.0); CREATININE 0.6 mg/dL (0.7-1.3)
[2017-09-21] MEDS: FOLIC ACID 1 MG TABLET (FP) PO SCH (10:43)
[2017-09-21] MEDS: MULTIVITAMINS (DAILY MVI) TABLET (FP) PO SCH (10:43)
[2017-09-21] MEDS: PANTOPRAZOLE 40 MG TABLET (FP) PO SCH (10:43)
[2017-09-21] MEDS: SENNOSIDES 8.6MG TABLET (FP) PO SCH ×2 (10:49→21:32)
[2017-09-21] MEDS: POLYETHYLENE GLYCOL 3350 119 GM BTL PO SCH (10:49)
[2017-09-21] MEDS: SODIUM CHLORIDE 1,000 ML IV SCH (12:00)
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
--- NOTE | 2017-09-21 14:27 | PN ---
Teaching Attending Note Name of Resident: Gurwinder Looney ATTENDING PHYSICIAN STATEMENT I saw and evaluated the patient. I reviewed the resident's note and discussed the case with the resident. I agree with the resident's findings and plan as documented. SUBJECTIVE: No fever or chills. still has pain in feet OBJECTIVE: NAD , thin, AAox3 Cv :RRR Lungs : CTAB Abd: soft, minimal TTP in epigastric area and RUQ> Ext: no edema on legs . b/l tenderness and non pitting edema on feet ( much improved today ) . a blister on L foot dorsum . Dp 2+ b/l and 2+ PT b/l . no erythema . nL warmth of feet .no ulcers. scaly skin on toes and soles ASSESSMENT AND PLAN: 52 y/o man with no recent medical care who presented with b/l foot pain and inability to ambulate . He was found to have Rhabdo 1- Acute Rhabdomyoysis : due to prolonged immobilization - cont IVF - follow CPK 2- Feet pain: no signs of cellulitis . possible diagnosis is nunez bite ( grade 2 ). possible concurring neuropathy improved - start neurontin - Ultram if needed. - start thiamine 3- RUQ pain: no clear etiology. AST and ALT elevation could be just due to rhabdo and improved . lipase nL. maybe related to constipation . - follow LFTS - bowel regimen 4- Weight loss: need to r/o malignancy - plan for EGD and colo on Saturday with miralx/gatarade preb 5- malnutrition : dietitian consult appreciated will start prosource, ensure and magic cup . dispo: HLOC
[2017-09-21] MEDS: traMADol HCL 50 MG TABLET PO PRN (16:35)
[2017-09-21] MEDS: GABAPENTIN 100 MG CAPSULE (FP) PO SCH ×2 (16:35→21:32)
[2017-09-21] MEDS: THIAMINE HCL 100 MG TABLET (FP) PO SCH ×2 (16:45→21:32)
[2017-09-21] MEDS ORDERED: PT OWN MED DRAWER 7, Y5N ONE (20:52)
[2017-09-21] MEDS: MIRTAZAPINE 15 MG TABLET (FP) PO SCH (21:32)
[2017-09-22] MEDS: traMADol HCL 50 MG TABLET PO PRN ×3 (00:46→23:09)
[2017-09-22] MEDS: SODIUM CHLORIDE 1,000 ML IV SCH ×2 (06:00→11:00)
[2017-09-22] MEDS: GABAPENTIN 100 MG CAPSULE (FP) PO SCH ×3 (06:00→21:30)
[2017-09-22 08:03] LABS: ANION GAP 9 (8-16); BLOOD UREA NITROGEN 15 mg/dL (7-18); CALCIUM 8.3 mg/dL (8.5-10.1); CHLORIDE 103 mmol/L (98-107); CO2 29 mmol/L (21-32); CREATININE 0.6 mg/dL (0.7-1.3); GLUCOSE,RANDOM 100 mg/dL (74-106); SODIUM 141 mmol/L (136-145)
[2017-09-22] MEDS: FOLIC ACID 1 MG TABLET (FP) PO SCH (10:56)
[2017-09-22] MEDS: POLYETHYLENE GLYCOL 3350 119 GM BTL PO SCH (10:57)
[2017-09-22] MEDS: MULTIVITAMINS (DAILY MVI) TABLET (FP) PO SCH (10:58)
[2017-09-22] MEDS: PANTOPRAZOLE 40 MG TABLET (FP) PO SCH (10:58)
[2017-09-22] MEDS: SENNOSIDES 8.6MG TABLET (FP) PO SCH ×2 (10:58→21:30)
[2017-09-22] MEDS: THIAMINE HCL 100 MG TABLET (FP) PO SCH ×2 (10:58→21:30)
--- NOTE | 2017-09-22 13:10 | PN ---
Progress Note (short form) - Note Progress Note: Subjective: pain in feet. no fever or chills. no abd pain . Objective: Vital Signs: Last Vital Signs Temp Pulse Resp BP Pulse Ox 97.5 F L 90 18 119/56 95 09/22/17 06:00 09/22/17 06:00 09/22/17 06:00 09/22/17 06:00 09/21/17 21:00 Laboratory Results - last 24 hr 09/21/17 09/22/17 08:15 06:00 Sodium 141 Potassium 4.0 Chloride 103 Carbon Dioxide 29 Anion Gap 9 BUN 15 Creatinine 0.6 L Random Glucose 100 Calcium 8.3 L Creatine Kinase 1897 H 709 H Creatine Kinase Index 0.1 0.3 CK-MB (CK-2) 3.247 2.139 Physical Exam: NAD , thin, AAox3 Cv :RRR Lungs : CTAB Abd: soft,NT , ND , NL BS Ext: no edema on legs . improved b/l tenderness and non pitting edema on feet . a blister on L foot dorsum ( smaller ) . Dp 2+ b/l and 2+ PT b/l . no erythema . nL warmth of feet .no ulcers. scaly skin on toes and soles ASSESSMENT AND PLAN: 52 y/o man with no recent medical care who presented with b/l foot pain and inability to ambulate . He was found to have Rhabdo 1- Acute Rhabdomyoysis : due to prolonged immobilization - cont IVF. -CPK 707 today 2- Feet pain: no signs of cellulitis . possible diagnosis is nunez bite ( grade 2 ). possible concurring neuropathy improved - cont neurontin - Ultram as needed - cont thiamine 3- RUQ pain: resolved 4- Weight loss: need to r/o malignancy - plan for EGD and colo tomorrow with miralx/gatarade preb this evening 5- Malnutrition: dietitian consult appreciated prosource, ensure and magic cup. dispo: HLOC cont PT Visit type - Emergency Visit Emergency Visit: Yes ED Registration Date: 09/18/17 Care time: The patient presented to the Emergency Department on the above date and was hospitalized for further evaluation of their emergent condition. - New Patient This patient is new to me today: No - Critical Care Critical Care patient: No
[2017-09-22] MEDS ORDERED: POLYETHYLENE GLYCOL 3350 255 GM BTL PO ONE (17:00)
[2017-09-22] MEDS ORDERED: PT OWN MED DRAWER 7, Y5N ONE (21:00)
[2017-09-22] MEDS: MIRTAZAPINE 15 MG TABLET (FP) PO SCH (21:30)
[2017-09-23] MEDS: GABAPENTIN 100 MG CAPSULE (FP) PO SCH ×2 (06:04→16:44)
--- NOTE | 2017-09-23 10:14 | PN ---
Progress Note, Physician History of Present Illness: Took miralax prep yesterday, however still has blown soft stools - Current Medication List Current Medications: Active Medications Folic Acid (Folic Acid -) 1 mg PO DAILY [facility] Last Admin: 09/22/17 10:56 Dose: 1 mg Gabapentin (Neurontin -) 100 mg PO TID [facility] Last Admin: 09/23/17 06:04 Dose: Not Given Sodium Chloride (Normal Saline -) 1,000 mls @ 100 mls/hr IV ASDIR [facility] Last Admin: 09/22/17 11:00 Dose: Not Given Mirtazapine (Remeron -) 15 mg PO HS [facility] Last Admin: 09/22/17 21:30 Dose: 15 mg Multivitamins/Minerals/Vitamin C (Tab-A-Vit -) 1 tab PO DAILY [facility] Last Admin: 09/22/17 10:58 Dose: 1 tab Pantoprazole Sodium (Protonix -) 40 mg PO DAILY [facility] Last Admin: 09/22/17 10:58 Dose: 40 mg Polyethylene Glycol (Miralax (For Daily Use) -) 17 gm PO DAILY [facility] Last Admin: 09/22/17 10:57 Dose: Not Given Senna (Senna -) 1 tab PO BID [facility] Last Admin: 09/22/17 21:30 Dose: 1 tab Thiamine HCl (Vitamin B1 -) 100 mg PO BID [facility] Last Admin: 09/22/17 21:30 Dose: 100 mg Tramadol HCl (Ultram -) 50 mg PO Q6H PRN PRN Reason: PAIN LEVEL 1 - 3 Last Admin: 09/22/17 23:09 Dose: 50 mg - Objective Vital Signs: Vital Signs Temperature 98.6 F 09/23/17 06:00 Pulse Rate 90 09/23/17 06:00 Respiratory Rate 18 09/23/17 06:00 Blood Pressure 119/62 09/23/17 06:00 O2 Sat by Pulse Oximetry (%) 95 09/22/17 20:41 Constitutional: Yes: No Distress, Calm Gastrointestinal: Yes: Soft Neurological: Yes: Alert, Oriented Labs: CBC, BMP 09/20/17 06:35 09/22/17 06:00 INR, PTT INR 1.04 (0.82-1.09) 09/18/17 06:00 CBCD WBC 9.2 K/mm3 (4.0-10.0) 09/20/17 06:35 RBC 4.26 M/mm3 (4.00-5.60) 09/20/17 06:35 Hgb 12.4 GM/dL (11.7-16.9) 09/20/17 06:35 Hct 37.4 % (35.4-49) 09/20/17 06:35 MCV 87.9 fl (80-96) 09/20/17 06:35 MCHC 33.1 g/dl (32.0-35.9) 09/20/17 06:35 RDW 13.2 % (11.9-15.9) 09/20/17 06:35 Plt Count 285 K/MM3 (134-434) 09/20/17 06:35 MPV 6.9 fl (7.5-11.1) L 09/20/17 06:35 CMP Sodium 141 mmol/L (136-145) 09/22/17 06:00 Potassium 4.0 mmol/L (3.5-5.1) 09/22/17 06:00 Chloride 103 mmol/L (98-107) 09/22/17 06:00 Carbon Dioxide 29 mmol/L (21-32) 09/22/17 06:00 Anion Gap 9 (8-16) 09/22/17 06:00 BUN 15 mg/dL (7-18) 09/22/17 06:00 Creatinine 0.6 mg/dL (0.7-1.3) L 09/22/17 06:00 Creat Clearance w eGFR > 60 (>60) 09/21/17 08:15 Calcium 8.3 mg/dL (8.5-10.1) L 09/22/17 06:00 Total Bilirubin 0.5 mg/dL (0.2-1.0) D 09/21/17 08:15 AST 108 U/L (15-37) H D 09/21/17 08:15 ALT 71 U/L (12-78) 09/21/17 08:15 Alkaline Phosphatase 72 U/L (45-117) 09/21/17 08:15 Total Protein 6.0 g/dl (6.4-8.2) L 09/21/17 08:15 Albumin 2.8 g/dl (3.4-5.0) L 09/21/17 08:15 Problem List - Problems (1) Rhabdomyolysis Code(s): M62.82 - RHABDOMYOLYSIS (2) Weight loss, abnormal Code(s): R63.4 - ABNORMAL WEIGHT LOSS (3) Bilateral lower leg cellulitis Code(s): L03.116 - CELLULITIS OF LEFT LOWER LIMB; L03.115 - CELLULITIS OF RIGHT LOWER LIMB Assessment/Plan abnormal, acute weight loss in a 52M Plan EGD/colonoscopy to r/o GI malignancy tomorrow morning repeat miralax/Gatorade bowel prep today
[2017-09-23] MEDS ORDERED: BISACODYL 5 MG TABLET.DR (FP) PO ONE ×2 (10:30→17:00)
[2017-09-23] MEDS: SENNOSIDES 8.6MG TABLET (FP) PO SCH ×2 (12:25→21:28)
[2017-09-23] MEDS: PANTOPRAZOLE 40 MG TABLET (FP) PO SCH (12:25)
[2017-09-23] MEDS: THIAMINE HCL 100 MG TABLET (FP) PO SCH ×2 (12:25→21:28)
[2017-09-23] MEDS: SODIUM CHLORIDE 1,000 ML IV SCH ×2 (12:25→16:50)
[2017-09-23] MEDS: FOLIC ACID 1 MG TABLET (FP) PO SCH (12:25)
[2017-09-23] MEDS: MULTIVITAMINS (DAILY MVI) TABLET (FP) PO SCH (12:25)
[2017-09-23] MEDS: POLYETHYLENE GLYCOL 3350 119 GM BTL PO SCH (12:26)
--- NOTE | 2017-09-23 15:48 | PN ---
Teaching Attending Note Name of Resident: Cathie Farr ATTENDING PHYSICIAN STATEMENT I saw and evaluated the patient. I reviewed the resident's note and discussed the case with the resident. I agree with the resident's findings and plan as documented. SUBJECTIVE: no fever or chills. has no abd pain, has pain in feet . OBJECTIVE: NAD , thin, AAox3 Cv :RRR Lungs : CTAB Abd: soft,NT , ND , NL BS Ext: no edema on legs . improved b/l tenderness on feet . improved non pitting edema on feet. Dp 2+ b/l and 2+ PT b/l . no erythema . nL warmth of feet .no ulcers. scaly skin on toes and soles ASSESSMENT AND PLAN: 52 y/o man with no recent medical care who presented with b/l foot pain and inability to ambulate . He was found to have Rhabdo 1- Acute Rhabdomyoysis : due to prolonged immobilization -cont IVF till am , then dc 2- Feet pain: no signs of cellulitis. possible diagnosis is nunez bite ( grade 2 ). possible concurring neuropathy improved but still limiting his ability to walk - increase neurontin - Ultram as needed - cont thiamine 3- RUQ pain: resolved 4- Weight loss: need to r/o malignancy - EGD and colo tomorrow as he did not clean with prep last night 5- Malnutrition: dietitian consult appreciated prosource, ensure and magic cup when back to regular diet . dispo: HLOC cont PT
[2017-09-23] MEDS ORDERED: POLYETHYLENE GLYCOL 3350 255 GM BTL PO ONE (17:00)
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
[2017-09-23] MEDS: traMADol HCL 50 MG TABLET PO PRN (19:59)
[2017-09-23] MEDS ORDERED: PT OWN MED DRAWER 7, Y5N ONE (21:11)
[2017-09-23] MEDS: GABAPENTIN 300 MG CAPSULE (FP) PO SCH (21:28)
[2017-09-23] MEDS: MIRTAZAPINE 15 MG TABLET (FP) PO SCH (21:28)
[2017-09-24] MEDS: SODIUM CHLORIDE 1,000 ML IV SCH ×2 (04:39→11:06)
[2017-09-24] MEDS: traMADol HCL 50 MG TABLET PO PRN ×2 (04:39→22:21)
[2017-09-24] MEDS ORDERED: PROPOFOL 20 ML ONE ×2 (07:55)
[2017-09-24 08:12] LABS: ANION GAP 8 (8-16); BLOOD UREA NITROGEN 7 mg/dL (7-18); CALCIUM 8.6 mg/dL (8.5-10.1); CHLORIDE 101 mmol/L (98-107); CO2 31 mmol/L (21-32); MAGNESIUM 2.3 mg/dL (1.8-2.4); POTASSIUM 4.3 mmol/L (3.5-5.1); SODIUM 140 mmol/L (136-145)
[2017-09-24 08:15] LABS: CREATININE 0.7 mg/dL (0.7-1.3); GLUCOSE,RANDOM 89 mg/dL (74-106); PHOSPHOROUS 4.8 mg/dL (2.5-4.9)
--- NOTE | 2017-09-24 08:39 | PROC ---
Endoscopy Procedure Endoscopy procedure completed. Please see scanned procedure report. Mild esophagitis was found, biopsies taken. Normal EGD otherwise. Normal colonoscopy to the cecum.
[2017-09-24] MEDS: SENNOSIDES 8.6MG TABLET (FP) PO SCH ×2 (11:06→22:24)
[2017-09-24] MEDS: THIAMINE HCL 100 MG TABLET (FP) PO SCH ×2 (11:06→22:21)
[2017-09-24] MEDS: MULTIVITAMINS (DAILY MVI) TABLET (FP) PO SCH (11:06)
[2017-09-24] MEDS: GABAPENTIN 300 MG CAPSULE (FP) PO SCH ×2 (11:07→22:21)
[2017-09-24] MEDS: FOLIC ACID 1 MG TABLET (FP) PO SCH (11:07)
[2017-09-24] MEDS: POLYETHYLENE GLYCOL 3350 119 GM BTL PO SCH (11:07)
[2017-09-24] MEDS: PANTOPRAZOLE 40 MG TABLET (FP) PO SCH (11:07)
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
--- NOTE | 2017-09-24 18:16 | PN ---
Teaching Attending Note Name of Resident: Benja Guillaume ATTENDING PHYSICIAN STATEMENT I saw and evaluated the patient. I reviewed the resident's note and discussed the case with the resident. I agree with the resident's findings and plan as documented. SUBJECTIVE: No fever or chills , has pain in feet still . no abd pain OBJECTIVE: NAD , thin, AAox3 Cv :RRR Lungs : CTAB Abd: soft,NT , ND , NL BS Ext: no edema on legs . b/l tenderness on feet . improved non pitting edema on feet. Dp 2+ b/l and 2+ PT b/l . no erythema . nL warmth of feet .no ulcers. scaly skin on toes and soles ASSESSMENT AND PLAN: 52 y/o man with no recent medical care who presented with b/l foot pain and inability to ambulate . He was found to have Rhabdo 1- Acute Rhabdo: due to prolonged immobilization -Dc IVF 2-Frostbite to b/l feet :improved , but pain still prevents walking - cont increased dose of neurontin - Ultram as needed - cont thiamine - appreciate Dr. Palma's input. hyperbaric treatment if possible . - if pain persists and remains disproportional to exam, then might get MRI 3- RUQ pain: resolved 4- Weight loss: need to r/o malignancy - EGD and colo tomorrow as he did not clean with prep last night 5- Malnutrition: dietitian consult appreciated prosource, ensure and magic cup dispo: HLOC cont PT
[2017-09-24] MEDS: AMMONIUM LACTATE 12% LOTION 225 GM BOTTLE TP SCH (18:57)
[2017-09-24] MEDS ORDERED: PT OWN MED DRAWER 7, Y5N ONE (22:09)
[2017-09-24] MEDS: MIRTAZAPINE 15 MG TABLET (FP) PO SCH (22:21)
[2017-09-24] MEDS: HEPARIN NA (PORCINE) 5,000 UNITS/ML 1ML VIAL SQ SCH (22:21)
[2017-09-25] MEDS: HEPARIN NA (PORCINE) 5,000 UNITS/ML 1ML VIAL SQ SCH ×3 (06:46→21:50)
[2017-09-25 07:46] LABS: HEMATOCRIT 38.4 % (35.4-49); HEMOGLOBIN 12.9 GM/dL (11.7-16.9); MCH 29.2 pg (25.7-33.7); MCHC 33.4 g/dl (32.0-35.9); MEAN CELL VOLUME 87.2 fl (80-96); MEAN PLT VOLUME 6.6 fl (7.5-11.1); PLATELET COUNT 379 K/MM3 (134-434); RBC 4.41 M/mm3 (4.00-5.60); RDW 13.4 % (11.9-15.9); WHITE BLOOD COUNT 7.9 K/mm3 (4.0-10.0)
[2017-09-25 08:17] LABS: ALBUMIN 3.1 g/dl (3.4-5.0); ALK PHOS 96 U/L (45-117); ANION GAP 9 (8-16); BILIRUBIN,TOTAL 0.2 mg/dL (0.2-1.0); BLOOD UREA NITROGEN 20 mg/dL (7-18); CALCIUM 8.2 mg/dL (8.5-10.1); CHLORIDE 100 mmol/L (98-107); CO2 30 mmol/L (21-32); CREATININE 0.7 mg/dL (0.7-1.3); GLUCOSE,RANDOM 104 mg/dL (74-106); SGOT/AST 54 U/L (15-37); SGPT/ALT 100 U/L (12-78); SODIUM 139 mmol/L (136-145); TOT PROT 6.6 g/dl (6.4-8.2)
--- NOTE | 2017-09-25 09:03 | PN ---
<Benja Guillaume - Last Filed: 09/25/17 16:37> Physical Exam: SUBJECTIVE: Patient seen and examined at bedside. No new complaints. States that pain and numbness continues to be bothersome at night. The pain is only minimally controlled with current medications. OBJECTIVE: Vital Signs Period Temp Pulse Resp BP Sys/Bravo Pulse Ox Last 24 Hr 97.5 F-99 F 72-96 18-22 111-134/68-75 95-100 GENERAL: The patient is awake, alert, and fully oriented, in no acute distress. HEAD: Normal with no signs of trauma. NECK: Trachea midline, full range of motion, supple. LUNGS: Breath sounds equal, clear to auscultation bilaterally, no wheezes, no crackles, no accessory muscle use. HEART: Regular rate and rhythm, S1, S2 without murmur, rub or gallop. ABDOMEN: Soft, nontender, nondistended, normoactive bowel sounds, no guarding, no rebound, no hepatosplenomegaly, no masses. EXTREMITIES: 2+ pulses, warm, well-perfused, no edema. NEUROLOGICAL: Cranial nerves II through X grossly intact. Normal speech, gait not observed. PSYCH: Normal mood, normal affect. SKIN: Warm, dry, normal turgor, no rashes or lesions noted Laboratory Results - last 24 hr 09/25/17 09/25/17 07:20 07:20 WBC 7.9 RBC 4.41 Hgb 12.9 Hct 38.4 MCV 87.2 MCH 29.2 MCHC 33.4 RDW 13.4 Plt Count 379 D MPV 6.6 L Sodium 139 Potassium 4.0 Chloride 100 Carbon Dioxide 30 Anion Gap 9 BUN 20 H D Creatinine 0.7 Creat Clearance w eGFR > 60 Random Glucose 104 Calcium 8.2 L Total Bilirubin 0.2 D AST 54 H D ALT 100 H D Alkaline Phosphatase 96 D Total Protein 6.6 Albumin 3.1 L Active Medications Generic Name Dose Route Start Last Admin Trade Name Freq PRN Reason Stop Dose Admin Folic Acid 1 mg 09/19/17 10:00 09/24/17 11:07 Folic Acid - PO 1 mg DAILY NARCISA Administration Gabapentin 300 mg 09/23/17 22:00 09/24/17 22:21 Neurontin - PO 300 mg BID NARCISA Administration Heparin Sodium (Porcine) 5,000 unit 09/24/17 22:00 09/25/17 06:46 Heparin - SQ 5,000 unit TID NARCISA Administration Lactic Acid 1 applic 09/24/17 14:27 09/24/17 18:57 Lac-Hydrin 12 TP 1 applic DAILY NARCISA Administration Mirtazapine 15 mg 09/19/17 22:00 09/24/17 22:21 Remeron - PO 15 mg HS NARCISA Administration Multivitamins/Minerals/Vitamin C 1 tab 09/19/17 10:00 09/24/17 11:06 Tab-A-Vit - PO 1 tab DAILY NARCISA Administration Pantoprazole Sodium 40 mg 09/18/17 11:45 09/24/17 11:07 Protonix - PO 40 mg DAILY NARCISA Administration Polyethylene Glycol 17 gm 09/19/17 11:00 09/24/17 11:07 Miralax (For Daily Use) - PO Not Given DAILY NARCISA Senna 1 tab 09/19/17 11:00 09/24/17 22:24 Senna - PO Not Given BID NARCISA Thiamine HCl 100 mg 09/21/17 11:00 09/24/17 22:21 Vitamin B1 - PO 100 mg BID NARCISA Administration Tramadol HCl 50 mg 09/21/17 10:51 09/24/17 22:21 Ultram - PO 50 mg Q6H PRN Administration PAIN LEVEL 1 - 3 ASSESSMENT/PLAN: The patient is a 52 yo homeless man who is admitted for b/l foot pain and elevated CPK. #B/l foot pain 2/2 frostbite -pain mildly improved today -will coordinate with podiatry for possible hyperbaric oxygen therapy -consider MRI if pt continues to have pain -patient only able to walk 4 feet yesterday w/ PT -will increase gabapentin to 300 TID -psych consult r/o malingering #Weight loss and early satiety, r/o malignancy -s/p EGD and colonoscopy -colonoscopy unremarkable -EGD shows esophagitis #Malnutrition -nutrition consult appreciated -magic cup, regular diet, prosource, ensure #Rhabdomyolysis 2/2 immobility- resolved -CPK levels trending down -IVF d/c #FEN -no fluids indicated -lytes WNL -regular diet #Prophylaxis -Hep SQ 5Ku TID #Dispo -admit to med-surg Visit type - Emergency Visit Emergency Visit: Yes ED Registration Date: 09/18/17 Care time: The patient presented to the Emergency Department on the above date and was hospitalized for further evaluation of their emergent condition. - New Patient This patient is new to me today: No - Critical Care Critical Care patient: No <Chivo Feldman - Last Filed: 09/25/17 20:15> Physical Exam: Patient sontinues to have BL lower extremity pain. Continues ot feel weak. As per discussion with the patient , Has siblings but they do not talk to each other. will try to contact the family, as per patient is ok to contact his brother. If lower extremity pain continues will get MRI.
[2017-09-25] MEDS ORDERED: PT OWN MED DRAWER 7, Y5N ONE (09:31)
[2017-09-25] MEDS: SENNOSIDES 8.6MG TABLET (FP) PO SCH ×2 (09:33→21:52)
[2017-09-25] MEDS: THIAMINE HCL 100 MG TABLET (FP) PO SCH ×2 (09:33→21:52)
[2017-09-25] MEDS: AMMONIUM LACTATE 12% LOTION 225 GM BOTTLE TP SCH (09:34)
[2017-09-25] MEDS: MULTIVITAMINS (DAILY MVI) TABLET (FP) PO SCH (09:34)
[2017-09-25] MEDS: POLYETHYLENE GLYCOL 3350 119 GM BTL PO SCH (09:34)
[2017-09-25] MEDS: PANTOPRAZOLE 40 MG TABLET (FP) PO SCH (09:34)
[2017-09-25] MEDS: GABAPENTIN 300 MG CAPSULE (FP) PO SCH ×3 (09:34→21:52)
[2017-09-25] MEDS: FOLIC ACID 1 MG TABLET (FP) PO SCH (09:34)
[2017-09-25] MEDS: traMADol HCL 50 MG TABLET PO PRN ×2 (09:36→22:50)
--- NOTE | 2017-09-25 15:44 | PATH ---
Surgical Pathology Report Patient Name: JUANA JOHANSEN Med. Rec. #: [id number] /Age/Gender: 1965 (Age: 52) / M Account: [id number] Location: [facility] MED/SURG Taken: 09/24/2017 Received: 09/24/2017 Reported: 09/25/2017 Physicians: Eli Grossman M.D. Specimen(s) Received A: BX DUODENUM B: BX ANTRUM C: BX GE JUNCTION Clinical History Preoperative diagnosis: Weight loss Postoperative diagnosis: Esophagitis Final Diagnosis A. DUODENUM, SECOND PORTION, BIOPSY: DUODENAL MUCOSA WITHOUT SIGNIFICANT PATHOLOGIC FINDINGS. B. STOMACH, ANTRUM/BODY, BIOPSY: GASTRIC ANTRAL AND BODY MUCOSA WITH MODERATE CHRONIC ACTIVE GASTRITIS. IMMUNOHISTOCHEMICAL STAIN FOR H. PYLORI IS NEGATIVE. C. GE JUNCTION, BIOPSY: GASTRIC CARDIAC TYPE MUCOSA WITH MODERATE CHRONIC FOCAL ACTIVE GASTRITIS. NO SQUAMOUS MUCOSA, INTESTINAL METAPLASIA, OR DYSPLASIA IDENTIFIED. Electronically Signed Sasha Hoang M.D. Gross Description A. Received in formalin, labeled "biopsy second portion of duodenum" are 2 haley, irregular portions of soft tissue measuring 0.2 and 0.3 cm. in greatest dimension. The specimens are submitted in toto in one cassette. B. Received in formalin, labeled "biopsy antrum/body" are 2 haley, irregular portions of soft tissue measuring 0.2 and 0.4 cm. in greatest dimension. The specimens are submitted in toto in one cassette. C. Received in formalin, labeled "biopsy GE junction" are 2 haley, irregular portions of soft tissue measuring 0.2 and 0.3 cm. in greatest dimension. The specimens are submitted in toto in one cassette. 09/24/2017 [facility]09/24/2017
--- NOTE | 2017-09-25 17:30 | PN ---
Progress Note (short form) - Note Progress Note: Pathology results noted. 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 Ideally, we need to repeat EGD after 3 moths of taking PPI daily and if indeed, the Johnson is present, we will need to repeat EGD with biopsies of the esophagus again in 1 year. Continue 40 mg pantoprazole daily, 30 min before breakfast. Problem List - Problems (1) Rhabdomyolysis Code(s): M62.82 - RHABDOMYOLYSIS (2) Weight loss, abnormal Code(s): R63.4 - ABNORMAL WEIGHT LOSS (3) Bilateral lower leg cellulitis Code(s): L03.116 - CELLULITIS OF LEFT LOWER LIMB; L03.115 - CELLULITIS OF RIGHT LOWER LIMB
[2017-09-25] MEDS: MIRTAZAPINE 15 MG TABLET (FP) PO SCH (21:52)
[2017-09-26] MEDS ORDERED: IBUPROFEN 600 MG TABLET (FP) PO ONE ×2 (00:36→22:29)
[2017-09-26] MEDS: HEPARIN NA (PORCINE) 5,000 UNITS/ML 1ML VIAL SQ SCH ×3 (07:11→21:45)
[2017-09-26] MEDS: GABAPENTIN 300 MG CAPSULE (FP) PO SCH ×3 (07:11→21:45)
[2017-09-26] MEDS ORDERED: traMADol HCL 50 MG TABLET PO PRN (09:05)
[2017-09-26] MEDS ORDERED: PT OWN MED DRAWER 7, Y5N ONE (09:10)
[2017-09-26] MEDS: THIAMINE HCL 100 MG TABLET (FP) PO SCH ×2 (09:12→21:45)
[2017-09-26] MEDS: FOLIC ACID 1 MG TABLET (FP) PO SCH (09:12)
[2017-09-26] MEDS: SENNOSIDES 8.6MG TABLET (FP) PO SCH ×2 (09:12→21:45)
[2017-09-26] MEDS: POLYETHYLENE GLYCOL 3350 119 GM BTL PO SCH (09:12)
[2017-09-26] MEDS: PANTOPRAZOLE 40 MG TABLET (FP) PO SCH (09:12)
[2017-09-26] MEDS: AMMONIUM LACTATE 12% LOTION 225 GM BOTTLE TP SCH (09:12)
[2017-09-26] MEDS: MULTIVITAMINS (DAILY MVI) TABLET (FP) PO SCH (09:12)
--- NOTE | 2017-09-26 12:22 | PN ---
Progress Note (short form) - Note Progress Note: Podiatry: Seen/evaluated at bedside, NAD. Pain much improved, denies F/V/N/C/SOB/CP. AFebrile, VSS. Still with intermittent numbness. COSMO: Pedal pulses strongly palpable, TG wnl, CFT brisk to all toes. The feet and warm to touch and well perfused. There are no ulcers, no blisters, no skin atrophy, no signs of significant thermal injury. Nails are elongated, discolored, thickened, tender x 10. Epicritic sensation mildly diminished bilaterally. Imp: 52 year old M with nunez bite, neuropathy, onychomycosis 1. Manual debridement of mycotic nails x 10 with nail nipper. 2. Given clinical appearance, I do not believe MRI is necessary as there are no signs of tissue injury from nunez bite. 3. Appropriate foot hygiene discussed. 4. No further intervention. Lainey Palma DPM
[2017-09-26] MEDS: ACETAMINOPHEN 325 MG TABLET (FP) PO PRN ×2 (16:09→20:36)
--- NOTE | 2017-09-26 18:07 | PN ---
<Benja Guillaume - Last Filed: 09/26/17 18:07> Physical Exam: SUBJECTIVE: Patient seen and examined at bedside. Patient reports minor improvement in pain. OBJECTIVE: Vital Signs Period Temp Pulse Resp BP Sys/Bravo Pulse Ox Last 24 Hr 98 F-98.6 F 85-110 18-20 111-134/54-79 95-98 GENERAL: The patient is awake, alert, and fully oriented, in no acute distress. HEAD: Normal with no signs of trauma. NECK: Trachea midline, full range of motion, supple. LUNGS: Breath sounds equal, clear to auscultation bilaterally, no wheezes, no crackles, no accessory muscle use. HEART: Regular rate and rhythm, S1, S2 without murmur, rub or gallop. ABDOMEN: Soft, nontender, nondistended, normoactive bowel sounds, no guarding, no rebound, no hepatosplenomegaly, no masses. EXTREMITIES: 2+ pulses, warm, well-perfused, no edema. NEUROLOGICAL: Cranial nerves II through X grossly intact. Normal speech, gait not observed. SKIN: Warm, dry, normal turgor, no rashes or lesions noted Laboratory Results - last 24 hr 09/26/17 08:27 Hemoglobin A1c % 5.7 Active Medications Generic Name Dose Route Start Last Admin Trade Name Freq PRN Reason Stop Dose Admin Acetaminophen 650 mg 09/26/17 15:22 09/26/17 16:09 Tylenol - PO 650 mg Q6H PRN Administration PAIN Folic Acid 1 mg 09/19/17 10:00 09/26/17 09:12 Folic Acid - PO 1 mg DAILY NARCISA Administration Gabapentin 300 mg 09/25/17 14:00 09/26/17 13:09 Neurontin - PO 300 mg TID NARCISA Administration Heparin Sodium (Porcine) 5,000 unit 09/24/17 22:00 09/26/17 13:09 Heparin - SQ 5,000 unit TID NARCISA Administration Lactic Acid 1 applic 09/24/17 14:27 09/26/17 09:12 Lac-Hydrin 12 TP 1 applic DAILY NARCISA Administration Mirtazapine 15 mg 09/19/17 22:00 09/25/17 21:52 Remeron - PO 15 mg HS NARCISA Administration Multivitamins/Minerals/Vitamin C 1 tab 09/19/17 10:00 09/26/17 09:12 Tab-A-Vit - PO 1 tab DAILY NARCISA Administration Pantoprazole Sodium 40 mg 09/18/17 11:45 09/26/17 09:12 Protonix - PO 40 mg DAILY NARCISA Administration Polyethylene Glycol 17 gm 09/19/17 11:00 09/26/17 09:12 Miralax (For Daily Use) - PO Not Given DAILY NARCISA Senna 1 tab 09/19/17 11:00 09/26/17 09:12 Senna - PO Not Given BID NARCISA Thiamine HCl 100 mg 09/21/17 11:00 09/26/17 09:12 Vitamin B1 - PO 100 mg BID NARCISA Administration ASSESSMENT/PLAN: The patient is a 52 yo homeless man who is admitted for b/l foot pain and elevated CPK. #B/l foot pain -pain mildly improved today -nails trimmed by podiatry -patient still unable to walk effectively. -pt will need SNF placement. #Malnutrition -nutrition consult appreciated -magic cup, regular diet, prosource, ensure #FEN -no fluids indicated -lytes WNL -regular diet #Prophylaxis -Hep SQ 5Ku TID #Dispo -admit to med-surg -DC planning to SNF Visit type - Emergency Visit Emergency Visit: Yes ED Registration Date: 09/18/17 Care time: The patient presented to the Emergency Department on the above date and was hospitalized for further evaluation of their emergent condition. - New Patient This patient is new to me today: No - Critical Care Critical Care patient: No <FranciaChivo - Last Filed: 09/26/17 19:18> Physical Exam: Patient seen and examined, Patient's feet are very warm, no acute injury is noted, Social Worker Palliative Care seen the patient and the nails were clipped. doubt the patient has nunez bite, since he has good pulses with warm lower extremities. the skin is intact. possible rehab. placement.
[2017-09-26] MEDS: MIRTAZAPINE 15 MG TABLET (FP) PO SCH (21:45)
[2017-09-26] MEDS ORDERED: traMADol HCL 50 MG TABLET PO ONE (22:28)
[2017-09-27] MEDS: GABAPENTIN 300 MG CAPSULE (FP) PO SCH ×3 (08:22→21:07)
[2017-09-27] MEDS: HEPARIN NA (PORCINE) 5,000 UNITS/ML 1ML VIAL SQ SCH ×3 (08:22→21:07)
[2017-09-27] MEDS: SENNOSIDES 8.6MG TABLET (FP) PO SCH ×2 (10:29→21:08)
[2017-09-27] MEDS: MULTIVITAMINS (DAILY MVI) TABLET (FP) PO SCH (10:29)
[2017-09-27] MEDS: ACETAMINOPHEN 325 MG TABLET (FP) PO PRN ×3 (10:29→22:22)
[2017-09-27] MEDS: PANTOPRAZOLE 40 MG TABLET (FP) PO SCH (10:29)
[2017-09-27] MEDS: FOLIC ACID 1 MG TABLET (FP) PO SCH (10:29)
[2017-09-27] MEDS: THIAMINE HCL 100 MG TABLET (FP) PO SCH ×2 (10:29→21:07)
[2017-09-27] MEDS: POLYETHYLENE GLYCOL 3350 119 GM BTL PO SCH (10:30)
--- NOTE | 2017-09-27 11:37 | PN ---
<Benja Guillaume - Last Filed: 09/27/17 16:30> Physical Exam: SUBJECTIVE: Patient seen and examined at bedside. Patient improving daily. Nails neatly trimmed by podiatry. OBJECTIVE: Vital Signs Period Temp Pulse Resp BP Sys/Bravo Pulse Ox Last 24 Hr 97.5 F-99.2 F 92-110 18-18 107-134/54-90 96 GENERAL: The patient is awake, alert, and fully oriented, in no acute distress. NECK: Trachea midline, full range of motion, supple. LUNGS: Breath sounds equal, clear to auscultation bilaterally, no wheezes, no crackles, no accessory muscle use. HEART: Regular rate and rhythm, S1, S2 without murmur, rub or gallop. ABDOMEN: Soft, nontender, nondistended, normoactive bowel sounds, no guarding, no rebound, no hepatosplenomegaly, no masses. EXTREMITIES: 2+ pulses, warm, well-perfused, no edema. NEUROLOGICAL: Cranial nerves II through X grossly intact. Normal speech, gait not observed. SKIN: Warm, dry, normal turgor, no rashes or lesions noted Laboratory Results - last 24 hr 09/26/17 08:27 Hemoglobin A1c % 5.7 Active Medications Generic Name Dose Route Start Last Admin Trade Name Freq PRN Reason Stop Dose Admin Acetaminophen 650 mg 09/26/17 15:22 09/27/17 10:29 Tylenol - PO 650 mg Q6H PRN Administration PAIN Folic Acid 1 mg 09/19/17 10:00 09/27/17 10:29 Folic Acid - PO 1 mg DAILY NARCISA Administration Gabapentin 300 mg 09/25/17 14:00 09/27/17 08:22 Neurontin - PO Not Given TID NARCISA Heparin Sodium (Porcine) 5,000 unit 09/24/17 22:00 09/27/17 08:22 Heparin - SQ Not Given TID NARCISA Lactic Acid 1 applic 09/24/17 14:27 09/26/17 09:12 Lac-Hydrin 12 TP 1 applic DAILY NARCISA Administration Mirtazapine 15 mg 09/19/17 22:00 09/26/17 21:45 Remeron - PO 15 mg HS NARCISA Administration Multivitamins/Minerals/Vitamin C 1 tab 09/19/17 10:00 09/27/17 10:29 Tab-A-Vit - PO 1 tab DAILY NARCISA Administration Pantoprazole Sodium 40 mg 09/18/17 11:45 09/27/17 10:29 Protonix - PO 40 mg DAILY NARCISA Administration Polyethylene Glycol 17 gm 09/19/17 11:00 09/27/17 10:30 Miralax (For Daily Use) - PO Not Given DAILY NARCISA Senna 1 tab 09/19/17 11:00 09/27/17 10:29 Senna - PO 1 tab BID NARCISA Administration Thiamine HCl 100 mg 09/21/17 11:00 09/27/17 10:29 Vitamin B1 - PO 100 mg BID NARCISA Administration ASSESSMENT/PLAN: The patient is a 52 yo homeless man who is admitted for b/l foot pain and elevated CPK. #B/l foot pain -pain improving daily -pt will need SNF placement. -A1c 5.7% #Malnutrition -nutrition consult appreciated -magic cup, regular diet, prosource, ensure #FEN -no fluids indicated -lytes WNL -regular diet #Prophylaxis -Hep SQ 5Ku TID #Dispo -admit to med-surg -DC planning to SNF Visit type - Emergency Visit Emergency Visit: Yes ED Registration Date: 09/18/17 Care time: The patient presented to the Emergency Department on the above date and was hospitalized for further evaluation of their emergent condition. - New Patient This patient is new to me today: No - Critical Care Critical Care patient: No <Chivo Feldman - Last Filed: 09/27/17 18:42> Physical Exam: Patient seen and examined. Patient feels better, with no acute distress, c/o having lower extremity pain on and off. Vital Signs Temperature 98.7 F 09/27/17 17:02 Pulse Rate 101 H 09/27/17 17:02 Respiratory Rate 18 09/27/17 17:02 Blood Pressure 111/62 09/27/17 17:02 O2 Sat by Pulse Oximetry (%) 96 09/26/17 21:00 CBCD WBC 7.9 K/mm3 (4.0-10.0) 09/25/17 07:20 RBC 4.41 M/mm3 (4.00-5.60) 09/25/17 07:20 Hgb 12.9 GM/dL (11.7-16.9) 09/25/17 07:20 Hct 38.4 % (35.4-49) 09/25/17 07:20 MCV 87.2 fl (80-96) 09/25/17 07:20 MCHC 33.4 g/dl (32.0-35.9) 09/25/17 07:20 RDW 13.4 % (11.9-15.9) 09/25/17 07:20 Plt Count 379 K/MM3 (134-434) D 09/25/17 07:20 MPV 6.6 fl (7.5-11.1) L 09/25/17 07:20 CMP Sodium 139 mmol/L (136-145) 09/25/17 07:20 Potassium 4.0 mmol/L (3.5-5.1) 09/25/17 07:20 Chloride 100 mmol/L (98-107) 09/25/17 07:20 Carbon Dioxide 30 mmol/L (21-32) 09/25/17 07:20 Anion Gap 9 (8-16) 09/25/17 07:20 BUN 20 mg/dL (7-18) H D 09/25/17 07:20 Creatinine 0.7 mg/dL (0.7-1.3) 09/25/17 07:20 Creat Clearance w eGFR > 60 (>60) 09/25/17 07:20 Random Glucose 104 mg/dL (74-106) 09/25/17 07:20 Calcium 8.2 mg/dL (8.5-10.1) L 09/25/17 07:20 Total Bilirubin 0.2 mg/dL (0.2-1.0) D 09/25/17 07:20 AST 54 U/L (15-37) H D 09/25/17 07:20 ALT 100 U/L (12-78) H D 09/25/17 07:20 Alkaline Phosphatase 96 U/L (45-117) D 09/25/17 07:20 Total Protein 6.6 g/dl (6.4-8.2) 09/25/17 07:20 Albumin 3.1 g/dl (3.4-5.0) L 09/25/17 07:20 CARDIAC ENZYMES Creatine Kinase 709 IU/L (39-308) H 09/22/17 06:00 Troponin I < 0.02 ng/ml (0.00-0.05) 09/17/17 20:45 Current Medications Generic Name Dose Route Start Last Admin Trade Name Freq PRN Reason Stop Dose Admin Acetaminophen 650 mg 09/26/17 15:22 09/27/17 16:57 Tylenol - PO 650 mg Q6H PRN Administration PAIN Folic Acid 1 mg 09/19/17 10:00 09/27/17 10:29 Folic Acid - PO 1 mg DAILY NARCISA Administration Gabapentin 300 mg 09/25/17 14:00 09/27/17 13:57 Neurontin - PO 300 mg TID NARCISA Administration Heparin Sodium (Porcine) 5,000 unit 09/24/17 22:00 09/27/17 14:28 Heparin - SQ 5,000 unit TID NARCISA Administration Lactic Acid 1 applic 09/24/17 14:27 09/27/17 13:52 Lac-Hydrin 12 TP Not Given DAILY NARCISA Mirtazapine 15 mg 09/19/17 22:00 09/26/17 21:45 Remeron - PO 15 mg HS NARCISA Administration Multivitamins/Minerals/Vitamin C 1 tab 09/19/17 10:00 09/27/17 10:29 Tab-A-Vit - PO 1 tab DAILY NARCISA Administration Pantoprazole Sodium 40 mg 09/18/17 11:45 09/27/17 10:29 Protonix - PO 40 mg DAILY NARCISA Administration Polyethylene Glycol 17 gm 09/19/17 11:00 09/27/17 10:30 Miralax (For Daily Use) - PO Not Given DAILY NARCISA Senna 1 tab 09/19/17 11:00 09/27/17 10:29 Senna - PO 1 tab BID NARCISA Administration Thiamine HCl 100 mg 09/21/17 11:00 09/27/17 10:29 Vitamin B1 - PO 100 mg BID NARCISA Administration Home Medications Medication Instructions Recorded NK [No Known Home Medication] 09/17/17 Pending rehab.placement.
[2017-09-27] MEDS: AMMONIUM LACTATE 12% LOTION 225 GM BOTTLE TP SCH (13:52)
[2017-09-27] MEDS ORDERED: PT OWN MED DRAWER 7, Y5N ONE ×2 (16:54→20:33)
[2017-09-27] MEDS ORDERED: IBUPROFEN 600 MG TABLET (FP) PO ONE (20:59)
[2017-09-27] MEDS: MIRTAZAPINE 15 MG TABLET (FP) PO SCH (21:07)
[2017-09-28] MEDS: ACETAMINOPHEN 325 MG TABLET (FP) PO PRN ×2 (04:13→11:14)
[2017-09-28] MEDS: GABAPENTIN 300 MG CAPSULE (FP) PO SCH (05:36)
[2017-09-28] MEDS: HEPARIN NA (PORCINE) 5,000 UNITS/ML 1ML VIAL SQ SCH ×3 (05:36→21:40)
[2017-09-28] MEDS ORDERED: IBUPROFEN 400 MG TABLET (FP) PO ONE (08:11)
[2017-09-28 08:17] LABS: CHLORIDE 96 mmol/L (98-107); POTASSIUM 4.5 mmol/L (3.5-5.1); SODIUM 136 mmol/L (136-145)
[2017-09-28 08:22] LABS: HEMOGLOBIN 13.1 GM/dL (11.7-16.9); MCH 28.8 pg (25.7-33.7); MCHC 32.9 g/dl (32.0-35.9); MEAN CELL VOLUME 87.6 fl (80-96); MEAN PLT VOLUME 6.8 fl (7.5-11.1); PLATELET COUNT 372 K/MM3 (134-434); RBC 4.56 M/mm3 (4.00-5.60); RDW 13.7 % (11.9-15.9)
[2017-09-28 08:27] LABS: ANION GAP 11 (8-16); BLOOD UREA NITROGEN 24 mg/dL (7-18); CALCIUM 9.5 mg/dL (8.5-10.1); CO2 29 mmol/L (21-32); CREATININE 0.7 mg/dL (0.7-1.3); GLUCOSE,RANDOM 104 mg/dL (74-106)
--- NOTE | 2017-09-28 09:24 | PN ---
Physical Exam: SUBJECTIVE: Patient seen and examined Patient is not getting relieved from pain, c/o that Gabapentin is just making him sleepy, but not helping the heat pain that he is getting. OBJECTIVE: Vital Signs Temperature 98.2 F 09/28/17 05:42 Pulse Rate 107 H 09/28/17 05:42 Respiratory Rate 18 09/28/17 05:42 Blood Pressure 121/84 09/28/17 05:42 O2 Sat by Pulse Oximetry (%) 96 09/27/17 21:00 GENERAL: The patient is awake, alert, and fully oriented, in no acute distress. HEAD: Normal with no signs of trauma. EYES: PERRL, extraocular movements intact, sclera anicteric, conjunctiva clear. ENT: Ears normal, oropharynx clear without exudates, moist mucous membranes. NECK: Trachea midline, full range of motion, supple. LUNGS: Breath sounds equal, clear to auscultation bilaterally, no wheezes, no crackles, no accessory muscle use. HEART: Regular rate and rhythm, S1, S2 without murmur, rub or gallop. ABDOMEN: Soft, nontender, nondistended, normoactive bowel sounds, no guarding, no rebound, no hepatosplenomegaly, no masses. EXTREMITIES: 2+ pulses, warm, very dry at the dorsum of the feet. NEUROLOGICAL: Cranial nerves II through XII grossly intact. Normal speech, gait not observed. PSYCH: Normal mood, normal affect. SKIN: Warm, dry, normal turgor, no rashes or lesions noted CBCD WBC 11.0 K/mm3 (4.0-10.0) H D 09/28/17 06:18 RBC 4.56 M/mm3 (4.00-5.60) 09/28/17 06:18 Hgb 13.1 GM/dL (11.7-16.9) 09/28/17 06:18 Hct 40.0 % (35.4-49) 09/28/17 06:18 MCV 87.6 fl (80-96) 09/28/17 06:18 MCHC 32.9 g/dl (32.0-35.9) 09/28/17 06:18 RDW 13.7 % (11.9-15.9) 09/28/17 06:18 Plt Count 372 K/MM3 (134-434) 09/28/17 06:18 MPV 6.8 fl (7.5-11.1) L 09/28/17 06:18 CMP Sodium 136 mmol/L (136-145) 09/28/17 06:18 Potassium 4.5 mmol/L (3.5-5.1) 09/28/17 06:18 Chloride 96 mmol/L (98-107) L 09/28/17 06:18 Carbon Dioxide 29 mmol/L (21-32) 09/28/17 06:18 Anion Gap 11 (8-16) 09/28/17 06:18 BUN 24 mg/dL (7-18) H 09/28/17 06:18 Creatinine 0.7 mg/dL (0.7-1.3) 09/28/17 06:18 Creat Clearance w eGFR > 60 (>60) 09/25/17 07:20 Random Glucose 104 mg/dL (74-106) 09/28/17 06:18 Calcium 9.5 mg/dL (8.5-10.1) 09/28/17 06:18 Total Bilirubin 0.2 mg/dL (0.2-1.0) D 09/25/17 07:20 AST 54 U/L (15-37) H D 09/25/17 07:20 ALT 100 U/L (12-78) H D 09/25/17 07:20 Alkaline Phosphatase 96 U/L (45-117) D 09/25/17 07:20 Total Protein 6.6 g/dl (6.4-8.2) 09/25/17 07:20 Albumin 3.1 g/dl (3.4-5.0) L 09/25/17 07:20 CARDIAC ENZYMES Creatine Kinase 709 IU/L (39-308) H 09/22/17 06:00 Troponin I < 0.02 ng/ml (0.00-0.05) 09/17/17 20:45 Current Medications Generic Name Dose Route Start Last Admin Trade Name Freq PRN Reason Stop Dose Admin Acetaminophen 650 mg 09/26/17 15:22 09/28/17 04:13 Tylenol - PO 650 mg Q6H PRN Administration PAIN Folic Acid 1 mg 09/19/17 10:00 09/27/17 10:29 Folic Acid - PO 1 mg DAILY NARCISA Administration Gabapentin 300 mg 09/25/17 14:00 09/28/17 05:36 Neurontin - PO 300 mg TID NARCISA Administration Heparin Sodium (Porcine) 5,000 unit 09/24/17 22:00 09/28/17 05:36 Heparin - SQ Not Given TID NARCISA Lactic Acid 1 applic 09/24/17 14:27 09/27/17 13:52 Lac-Hydrin 12 TP Not Given DAILY NARCISA Mirtazapine 15 mg 09/19/17 22:00 09/27/17 21:07 Remeron - PO 15 mg HS NARCISA Administration Multivitamins/Minerals/Vitamin C 1 tab 09/19/17 10:00 09/27/17 10:29 Tab-A-Vit - PO 1 tab DAILY NARCISA Administration Pantoprazole Sodium 40 mg 09/18/17 11:45 09/27/17 10:29 Protonix - PO 40 mg DAILY NARCISA Administration Polyethylene Glycol 17 gm 09/19/17 11:00 09/27/17 10:30 Miralax (For Daily Use) - PO Not Given DAILY NARCISA Senna 1 tab 09/19/17 11:00 09/27/17 21:08 Senna - PO Not Given BID NARCISA Thiamine HCl 100 mg 09/21/17 11:00 09/27/17 21:07 Vitamin B1 - PO 100 mg BID NARCISA Administration Home Medications Medication Instructions Recorded NK [No Known Home Medication] 09/17/17 Xrays reviewed. Hemoglobin A1c 5.7% A/P: The patient is a 52 yo homeless man who is admitted for b/l feet pain and elevated CPK. #B/l feet pain improving but continues to have pain and states that Gabapentin is not helping just making him sleepy, will add Flexeril muscle relaxants to see whether that will help also will add mgox 400mg po qdaily. Ordered B12, folic acid level, since [id number] can cause lower extremity pain, will check his TSH level as well, will discontinue Gabapentin since not helping him, just making him sleepy. Also adding magnesium since can help as a muscle relaxant for 5 days, since also he is on Protonix which can deplete his magnesium level. Pt will need SNF placement. #Malnutrition nutrition consult appreciated, magic cup, regular diet, prosource , ensure #Prophylaxis: Hep SQ 5U TID DC planning to SNF please check, TSH ,Ft4 level, b12 AND fOLIC ACID LEVEL. ORDERED FOR AM. Visit type - Emergency Visit Emergency Visit: Yes ED Registration Date: 09/18/17 Care time: The patient presented to the Emergency Department on the above date and was hospitalized for further evaluation of their emergent condition. - New Patient This patient is new to me today: No - Critical Care Critical Care patient: No
[2017-09-28] MEDS ORDERED: PT OWN MED DRAWER 7, Y5N ONE (11:21)
[2017-09-28] MEDS: MULTIVITAMINS (DAILY MVI) TABLET (FP) PO SCH (11:25)
[2017-09-28] MEDS: THIAMINE HCL 100 MG TABLET (FP) PO SCH ×2 (11:25→21:38)
[2017-09-28] MEDS: POLYETHYLENE GLYCOL 3350 119 GM BTL PO SCH (11:25)
[2017-09-28] MEDS: AMMONIUM LACTATE 12% LOTION 225 GM BOTTLE TP SCH (11:25)
[2017-09-28] MEDS: SENNOSIDES 8.6MG TABLET (FP) PO SCH (11:25)
[2017-09-28] MEDS ORDERED: CYCLOBENZAPRINE HCL 5 MG TABLET PO PRN (11:32)
[2017-09-28] MEDS: FOLIC ACID 1 MG TABLET (FP) PO SCH (11:37)
[2017-09-28] MEDS: PANTOPRAZOLE 40 MG TABLET (FP) PO SCH ×2 (11:37→21:39)
[2017-09-28] MEDS: CYCLOBENZAPRINE HCL 10 MG TABLET (FP) PO PRN ×2 (15:33→23:44)
[2017-09-28] MEDS: MAGNESIUM OXIDE 400 MG TABLET (FP) PO SCH (15:34)
--- NOTE | 2017-09-28 17:55 | PN ---
Progress Note (short form) - Note Progress Note: Patient seen for Psych follow up. No reports of ant suicidal or Homicidaln behaviour. Patient is homeless. plans are underway to send him to Rehab or [facility]erman care> MS: alert, oriented, eating his dinner, has good appetite. Denies feeling suicidal. no evidfence of any acute psychosis. reports foot pain and thinks medication is not helping him. he has manipulative tendencies and gives vague responses to questions. cognition Intact. Plan Will try Cymbalta d for pain and ? depression.
--- NOTE | 2017-09-28 17:58 | PN ---
Progress Note (short form) - Note Progress Note: Addendum.... will increase REmeron to 30mg po hs. will not go with Cymbalta at this time.
[2017-09-28] MEDS: traMADol HCL 50 MG TABLET PO PRN (19:40)
[2017-09-28] MEDS: DOCUSATE SODIUM 100 MG CAPSULE (FP) PO SCH (21:35)
[2017-09-28] MEDS: MIRTAZAPINE 30 MG TABLET (FP) PO SCH (21:39)
[2017-09-28] MEDS ORDERED: MIRTAZAPINE 30 MG TABLET (FP) PO SCH (22:00)
[2017-09-29] MEDS ORDERED: MELATONIN 5 MG TABLETS PO ONE (02:00)
[2017-09-29] MEDS ORDERED: IBUPROFEN 600 MG TABLET (FP) PO ONE (02:00)
[2017-09-29] MEDS: traMADol HCL 50 MG TABLET PO PRN ×2 (03:47→16:48)
[2017-09-29] MEDS: HEPARIN NA (PORCINE) 5,000 UNITS/ML 1ML VIAL SQ SCH ×3 (06:07→22:18)
[2017-09-29 08:45] LABS: EOS % 8.5 % (0-4.5); HEMATOCRIT 40.1 % (35.4-49); HEMOGLOBIN 13.3 GM/dL (11.7-16.9); LYMPH % 21.9 % (8-40); MCH 29.2 pg (25.7-33.7); MCHC 33.2 g/dl (32.0-35.9); MEAN PLT VOLUME 6.7 fl (7.5-11.1); MONO % 12.4 % (3.8-10.2); NEUT % 56.2 % (42.8-82.8); PLATELET COUNT 372 K/MM3 (134-434); RBC 4.55 M/mm3 (4.00-5.60); WHITE BLOOD COUNT 10.4 K/mm3 (4.0-10.0)
[2017-09-29 09:19] LABS: ALBUMIN 3.2 g/dl (3.4-5.0); ANION GAP 10 (8-16); BILIRUBIN,TOTAL 0.4 mg/dL (0.2-1.0); BLOOD UREA NITROGEN 29 mg/dL (7-18); CALCIUM 8.9 mg/dL (8.5-10.1); CHLORIDE 98 mmol/L (98-107); CO2 30 mmol/L (21-32); CREATININE 0.7 mg/dL (0.7-1.3); GLUCOSE,RANDOM 99 mg/dL (74-106); MAGNESIUM 2.5 mg/dL (1.8-2.4); PHOSPHOROUS 5.3 mg/dL (2.5-4.9); POTASSIUM 4.6 mmol/L (3.5-5.1); SGOT/AST 154 U/L (15-37); SGPT/ALT 217 U/L (12-78); SODIUM 138 mmol/L (136-145)
[2017-09-29 09:55] LABS: ALK PHOS 102 U/L (45-117); TOT PROT 7.2 g/dl (6.4-8.2)
[2017-09-29] MEDS: PANTOPRAZOLE 40 MG TABLET (FP) PO SCH ×2 (10:47→22:18)
[2017-09-29] MEDS: MAGNESIUM OXIDE 400 MG TABLET (FP) PO SCH (10:47)
[2017-09-29] MEDS: POLYETHYLENE GLYCOL 3350 119 GM BTL PO SCH (10:47)
[2017-09-29] MEDS: MULTIVITAMINS (DAILY MVI) TABLET (FP) PO SCH (10:47)
[2017-09-29] MEDS: THIAMINE HCL 100 MG TABLET (FP) PO SCH ×2 (10:47→22:18)
[2017-09-29] MEDS: AMMONIUM LACTATE 12% LOTION 225 GM BOTTLE TP SCH (10:47)
--- NOTE | 2017-09-29 15:04 | PN ---
Physical Exam: SUBJECTIVE: Patient seen and examined No acute events overnight. Patient still complaining of b/l foot pain. OBJECTIVE: Vital Signs Period Temp Pulse Resp BP Sys/Bravo Pulse Ox Last 24 Hr 97.4 F-98.5 F 77-103 18-20 112-136/74-78 96-96 GENERAL: The patient is awake, alert, and fully oriented, in no acute distress. NECK: Trachea midline, full range of motion, supple. LUNGS: Breath sounds equal, clear to auscultation bilaterally, no wheezes, no crackles, no accessory muscle use. HEART: Regular rate and rhythm, S1, S2 without murmur, rub or gallop. ABDOMEN: Soft, nontender, nondistended, normoactive bowel sounds, no guarding, no rebound, no hepatosplenomegaly, no masses. EXTREMITIES: 2+ pulses, warm, well-perfused, no edema. +tenderness to palpation of b/l feet. Dry scaly dorsum of feet NEUROLOGICAL: Cranial nerves II through X grossly intact. Normal speech, gait not observed. SKIN: Warm, dry, normal turgor, no rashes or lesions noted Laboratory Results - last 24 hr 09/29/17 09/29/17 09/29/17 08:25 08:25 08:25 WBC 10.4 H RBC 4.55 Hgb 13.3 Hct 40.1 MCV 88.0 MCH 29.2 MCHC 33.2 RDW 14.0 Plt Count 372 MPV 6.7 L Neutrophils % 56.2 D Lymphocytes % 21.9 D Monocytes % 12.4 H D Eosinophils % 8.5 H Basophils % 1.0 Sodium 138 Potassium 4.6 Chloride 98 Carbon Dioxide 30 Anion Gap 10 BUN 29 H D Creatinine 0.7 Creat Clearance w eGFR > 60 Random Glucose 99 Calcium 8.9 Phosphorus 5.3 H Magnesium 2.5 H Total Bilirubin 0.4 D AST 154 H D ALT 217 H D Alkaline Phosphatase 102 Total Protein 7.2 Albumin 3.2 L Vitamin B12 647 D Serum Folate 28 H TSH 2.74 D Free T4 0.86 Active Medications Generic Name Dose Route Start Last Admin Trade Name Freq PRN Reason Stop Dose Admin Cyclobenzaprine HCl 5 mg 09/28/17 12:03 09/28/17 23:44 Flexeril - PO 5 mg TID PRN Administration muscle tension relieve Docusate Sodium 200 mg 09/28/17 22:00 09/28/17 21:35 Colace - PO Not Given HS [facility] Heparin Sodium (Porcine) 5,000 unit 09/24/17 22:00 09/29/17 06:07 Heparin - SQ Not Given TID [facility] Sodium Chloride 1,000 mls @ 100 mls/hr 09/29/17 13:15 Normal Saline - IV ASDIR NARCISA Lactic Acid 1 applic 09/24/17 14:27 09/29/17 10:47 Lac-Hydrin 12 TP 1 applic DAILY NARCISA Administration Magnesium Oxide 400 mg 09/28/17 11:45 09/29/17 10:47 Mag-Ox - PO 10/03/17 11:44 400 mg DAILY N[facility] Administration Mirtazapine 30 mg 09/28/17 22:00 09/28/17 21:39 Remeron - PO 30 mg HS NARCISA Administration Multivitamins/Minerals/Vitamin C 1 tab 09/19/17 10:00 09/29/17 10:47 Tab-A-Vit - PO 1 tab DAILY [facility] Administration Pantoprazole Sodium 40 mg 09/28/17 22:00 09/29/17 10:47 Protonix - PO 40 mg BID NARCISA Administration Polyethylene Glycol 17 gm 09/19/17 11:00 09/29/17 10:47 Miralax (For Daily Use) - PO Not Given DAILY [facility] Thiamine HCl 100 mg 09/21/17 11:00 09/29/17 10:47 Vitamin B1 - PO 100 mg BID [facility] Administration Tramadol HCl 25 mg 09/28/17 18:50 09/29/17 03:47 Ultram - PO 25 mg Q8H PRN Administration PAIN LEVEL 6-10 ASSESSMENT/PLAN: The patient is a 52 yo homeless man who is admitted for b/l foot pain and elevated CPK. #B/l foot pain -pain improving daily -pt will need SNF placement. -A1c 5.7% -Tramadol PRN -Flexeril prn #Malnutrition -nutrition consult appreciated -magic cup, regular diet, prosource, ensure -Psychiatry consult -Given eosinophilia in white count, will order cxr, UA, EKG -Remeron on hold, given leukocytosis with eosinophilia #FEN -NS @ 100 cc/hr given patient appears dry -lytes WNL -regular diet #Prophylaxis -Hep SQ 5Ku TID -protonix 40 po bid #Dispo -admit to med-surg -DC planning to SNF Visit type - Emergency Visit Emergency Visit: Yes ED Registration Date: 09/18/17 Care time: The patient presented to the Emergency Department on the above date and was hospitalized for further evaluation of their emergent condition. - New Patient This patient is new to me today: No - Critical Care Critical Care patient: No
[2017-09-29] MEDS: SODIUM CHLORIDE 1,000 ML IV SCH ×2 (16:41→17:19)
[2017-09-29] MEDS: CYCLOBENZAPRINE HCL 10 MG TABLET (FP) PO PRN (16:47)
--- NOTE | 2017-09-29 17:31 | EKG ---
Test Reason : Blood Pressure : / mmHG Vent. Rate : 093 BPM Atrial Rate : 093 BPM P-R Int : 136 ms QRS Dur : 082 ms QT Int : 354 ms P-R-T Axes : 074 075 059 degrees QTc Int : 440 ms NORMAL SINUS RHYTHM NORMAL ECG WHEN COMPARED WITH ECG OF 17-SEP-2017 17:47, NO SIGNIFICANT CHANGE WAS FOUND Confirmed by PRINCE GARCIA MD ([id number]) on 09/29/2017 5:31:41 PM Referred By: Kimberly DALY Confirmed By:PRINCE GARCIA MD
[2017-09-29] MEDS: DOCUSATE SODIUM 100 MG CAPSULE (FP) PO SCH (22:19)
[2017-09-29] MEDS: MIRTAZAPINE 30 MG TABLET (FP) PO SCH (22:20)
[2017-09-29 23:28] LABS: URINE APPEARANCE CLEAR; URINE BILIRUBIN NEGATIVE (NEGATIVE); URINE COLOR LTYELLOW; URINE GLUCOSE (UA) NEGATIVE (NEGATIVE); URINE KETONE NEGATIVE (NEGATIVE); URINE LEUK ESTERASE NEGATIVE (NEGATIVE); URINE NITRITE NEGATIVE (NEGATIVE); URINE PROTEIN NEGATIVE (NEGATIVE); URINE UROBILINOGEN NEGATIVE mg/dL (0.2-1.0)
[2017-09-30] MEDS: CYCLOBENZAPRINE HCL 10 MG TABLET (FP) PO PRN ×4 (00:49→21:07)
[2017-09-30] MEDS: traMADol HCL 50 MG TABLET PO PRN ×4 (00:58→21:07)
[2017-09-30] MEDS: HEPARIN NA (PORCINE) 5,000 UNITS/ML 1ML VIAL SQ SCH ×3 (06:24→21:14)
[2017-09-30 08:11] LABS: BASO % 1.2 % (0-2.0); EOS % 6.6 % (0-4.5); HEMATOCRIT 38.5 % (35.4-49); HEMOGLOBIN 12.7 GM/dL (11.7-16.9); LYMPH % 24.6 % (8-40); MCH 28.8 pg (25.7-33.7); MEAN CELL VOLUME 87.2 fl (80-96); MEAN PLT VOLUME 6.5 fl (7.5-11.1); MONO % 12.7 % (3.8-10.2); NEUT % 54.9 % (42.8-82.8); PLATELET COUNT 364 K/MM3 (134-434); RBC 4.41 M/mm3 (4.00-5.60); RDW 13.8 % (11.9-15.9); WHITE BLOOD COUNT 11.5 K/mm3 (4.0-10.0)
[2017-09-30 08:36] LABS: ALBUMIN 3.4 g/dl (3.4-5.0); ANION GAP 10 (8-16); BILIRUBIN,TOTAL 0.5 mg/dL (0.2-1.0); BLOOD UREA NITROGEN 27 mg/dL (7-18); CALCIUM 8.7 mg/dL (8.5-10.1); CHLORIDE 98 mmol/L (98-107); CO2 29 mmol/L (21-32); CREATININE 0.7 mg/dL (0.7-1.3); GLUCOSE,RANDOM 103 mg/dL (74-106); MAGNESIUM 2.5 mg/dL (1.8-2.4); PHOSPHOROUS 4.5 mg/dL (2.5-4.9); POTASSIUM 4.3 mmol/L (3.5-5.1); SGOT/AST 103 U/L (15-37); SGPT/ALT 210 U/L (12-78); SODIUM 137 mmol/L (136-145); TOT PROT 7.1 g/dl (6.4-8.2)
[2017-09-30 08:37] LABS: ALK PHOS 101 U/L (45-117)
[2017-09-30] MEDS: MULTIVITAMINS (DAILY MVI) TABLET (FP) PO SCH (09:02)
[2017-09-30] MEDS: MAGNESIUM OXIDE 400 MG TABLET (FP) PO SCH (09:02)
[2017-09-30] MEDS: AMMONIUM LACTATE 12% LOTION 225 GM BOTTLE TP SCH (09:03)
[2017-09-30] MEDS: POLYETHYLENE GLYCOL 3350 119 GM BTL PO SCH (09:03)
[2017-09-30] MEDS: THIAMINE HCL 100 MG TABLET (FP) PO SCH ×2 (09:03→21:08)
[2017-09-30] MEDS: PANTOPRAZOLE 40 MG TABLET (FP) PO SCH ×2 (09:03→21:08)
--- NOTE | 2017-09-30 12:20 | PN ---
Teaching Attending Note Name of Resident: Benja Guillaume ATTENDING PHYSICIAN STATEMENT I saw and evaluated the patient. I reviewed the resident's note and discussed the case with the resident. I agree with the resident's findings and plan as documented. SUBJECTIVE: Patient complains of cramps in his feet. OBJECTIVE: Vital Signs Period Temp Pulse Resp BP Sys/Bravo Pulse Ox Last 24 Hr 97.4 F-98.3 F 77-110 18-20 116-136/71-79 96-96 HEART: S1S2, RRR LUNGS: Clear ABDOMEN: Soft, non-distended, non-tender, normal BS EXTREMITIES: No edema, no calf tenderness Laboratory Results - last 24 hr 09/29/17 09/30/17 09/30/17 23:00 07:40 07:40 WBC 11.5 H RBC 4.41 Hgb 12.7 Hct 38.5 MCV 87.2 MCH 28.8 MCHC 33.0 RDW 13.8 Plt Count 364 MPV 6.5 L Neutrophils % 54.9 Lymphocytes % 24.6 Monocytes % 12.7 H Eosinophils % 6.6 H Basophils % 1.2 Sodium 137 Potassium 4.3 Chloride 98 Carbon Dioxide 29 Anion Gap 10 BUN 27 H Creatinine 0.7 Creat Clearance w eGFR > 60 Random Glucose 103 Calcium 8.7 Phosphorus 4.5 Magnesium 2.5 H Total Bilirubin 0.5 D AST 103 H D ALT 210 H Alkaline Phosphatase 101 Total Protein 7.1 Albumin 3.4 Urine Color Ltyellow Urine Appearance Clear Urine pH 5.0 Ur Specific [place] 1.021 Urine Protein Negative Urine Glucose (UA) Negative Urine Ketones Negative Urine Blood Negative Urine Nitrite Negative Urine Bilirubin Negative Urine Urobilinogen Negative Ur Leukocyte Esterase Negative Current Medications Generic Name Dose Route Start Last Admin Trade Name Freq PRN Reason Stop Dose Admin Cyclobenzaprine HCl 5 mg 09/28/17 12:03 09/30/17 02:39 Flexeril - PO 5 mg TID PRN Administration muscle tension relieve Docusate Sodium 200 mg 09/28/17 22:00 09/29/17 22:19 Colace - PO Not Given HS [facility] Heparin Sodium (Porcine) 5,000 unit 09/24/17 22:00 09/30/17 06:24 Heparin - SQ Not Given TID [facility] Sodium Chloride 1,000 mls @ 100 mls/hr 09/29/17 13:15 09/29/17 17:19 Normal Saline - IV Not Given ASDIR NARCISA Lactic Acid 1 applic 09/24/17 14:27 09/30/17 09:03 Lac-Hydrin 12 TP 1 applic DAILY [facility] Administration Magnesium Oxide 400 mg 09/28/17 11:45 09/30/17 09:02 Mag-Ox - PO 10/03/17 11:44 400 mg DAILY [facility] Administration Mirtazapine 30 mg 09/28/17 22:00 09/29/17 22:20 Remeron - PO 30 mg HS [facility] Administration Multivitamins/Minerals/Vitamin C 1 tab 09/19/17 10:00 09/30/17 09:02 Tab-A-Vit - PO 1 tab DAILY [facility] Administration Pantoprazole Sodium 40 mg 09/28/17 22:00 09/30/17 09:03 Protonix - PO 40 mg BID [facility] Administration Polyethylene Glycol 17 gm 09/19/17 11:00 09/30/17 09:03 Miralax (For Daily Use) - PO Not Given DAILY [facility] Thiamine HCl 100 mg 09/21/17 11:00 09/30/17 09:03 Vitamin B1 - PO 100 mg BID [facility] Administration Tramadol HCl 25 mg 09/28/17 18:50 09/30/17 02:41 Ultram - PO 25 mg Q8H PRN Administration PAIN LEVEL 6-10 ASSESSMENT AND PLAN: The patient is a 52 year old man with no significant history who presented to the ED with pain in both feet. 1. Bilateral foot pain secondary to frostbite - Continue Tramadol as needed, Flexeril as needed 2. Severe malnutrition - Continue Magic Cup, Prosource, Ensure, Remeron 3. Disposition - Not accepted to rehab - Continue PT - Plan [facility]
[2017-09-30] MEDS: SODIUM CHLORIDE 1,000 ML IV SCH ×2 (13:05→21:07)
--- NOTE | 2017-09-30 13:21 | PN ---
Physical Exam: SUBJECTIVE: Patient seen and examined at bedside. Patient continues to complain of b/l foot pain. OBJECTIVE: Vital Signs Period Temp Pulse Resp BP Sys/Bravo Pulse Ox Last 24 Hr 97.4 F-98.3 F 77-110 18-20 116-136/71-79 96-96 GENERAL: The patient is awake, alert, and fully oriented, in no acute distress. HEAD: Normal with no signs of trauma. LUNGS: Breath sounds equal, clear to auscultation bilaterally, no wheezes, no crackles, no accessory muscle use. HEART: Regular rate and rhythm, S1, S2 without murmur, rub or gallop. ABDOMEN: Soft, nontender, nondistended, normoactive bowel sounds, no guarding, no rebound, no hepatosplenomegaly, no masses. EXTREMITIES: 2+ pulses, warm, well-perfused, no edema. NEUROLOGICAL: Cranial nerves II through X grossly intact. Normal speech, gait not observed. SKIN: Warm, dry, normal turgor, no rashes or lesions noted Laboratory Results - last 24 hr 09/29/17 09/30/17 09/30/17 23:00 07:40 07:40 WBC 11.5 H RBC 4.41 Hgb 12.7 Hct 38.5 MCV 87.2 MCH 28.8 MCHC 33.0 RDW 13.8 Plt Count 364 MPV 6.5 L Neutrophils % 54.9 Lymphocytes % 24.6 Monocytes % 12.7 H Eosinophils % 6.6 H Basophils % 1.2 Sodium 137 Potassium 4.3 Chloride 98 Carbon Dioxide 29 Anion Gap 10 BUN 27 H Creatinine 0.7 Creat Clearance w eGFR > 60 Random Glucose 103 Calcium 8.7 Phosphorus 4.5 Magnesium 2.5 H Total Bilirubin 0.5 D AST 103 H D ALT 210 H Alkaline Phosphatase 101 Total Protein 7.1 Albumin 3.4 Urine Color Ltyellow Urine Appearance Clear Urine pH 5.0 Ur Specific [place] 1.021 Urine Protein Negative Urine Glucose (UA) Negative Urine Ketones Negative Urine Blood Negative Urine Nitrite Negative Urine Bilirubin Negative Urine Urobilinogen Negative Ur Leukocyte Esterase Negative Active Medications Generic Name Dose Route Start Last Admin Trade Name Freq PRN Reason Stop Dose Admin Cyclobenzaprine HCl 5 mg 09/28/17 12:03 09/30/17 13:04 Flexeril - PO 5 mg TID PRN Administration muscle tension relieve Docusate Sodium 200 mg 09/28/17 22:00 09/29/17 22:19 Colace - PO Not Given HS [facility] Heparin Sodium (Porcine) 5,000 unit 09/24/17 22:00 09/30/17 13:03 Heparin - SQ 5,000 unit TID [facility] Administration Sodium Chloride 1,000 mls @ 100 mls/hr 09/29/17 13:15 09/30/17 13:05 Normal Saline - IV 100 mls/hr ASDIR [facility] Administration Lactic Acid 1 applic 09/24/17 14:27 09/30/17 09:03 Lac-Hydrin 12 TP 1 applic DAILY [facility] Administration Magnesium Oxide 400 mg 09/28/17 11:45 09/30/17 09:02 Mag-Ox - PO 10/03/17 11:44 400 mg DAILY [facility] Administration Mirtazapine 30 mg 09/28/17 22:00 09/29/17 22:20 Remeron - PO 30 mg HS [facility] Administration Multivitamins/Minerals/Vitamin C 1 tab 09/19/17 10:00 09/30/17 09:02 Tab-A-Vit - PO 1 tab DAILY [facility] Administration Pantoprazole Sodium 40 mg 09/28/17 22:00 09/30/17 09:03 Protonix - PO 40 mg BID [facility] Administration Polyethylene Glycol 17 gm 09/19/17 11:00 09/30/17 09:03 Miralax (For Daily Use) - PO Not Given DAILY [facility] Thiamine HCl 100 mg 09/21/17 11:00 09/30/17 09:03 Vitamin B1 - PO 100 mg BID [facility] Administration Tramadol HCl 25 mg 09/28/17 18:50 09/30/17 13:03 Ultram - PO 25 mg Q8H PRN Administration PAIN LEVEL 6-10 ASSESSMENT/PLAN: The patient is a 52 yo homeless man who is admitted for b/l foot pain and elevated CPK. #B/l foot pain -pain improving daily -pt rejected for SNF -Pt minimally compliant with PT, noted to be argumentative with staff. -As we are unable to find a SNF for the patient, Will begin to discharge plan to [facility]dc or other housing #Malnutrition -continue with magic cup, regular diet, prosource, ensure #FEN -no fluids indicated -lytes WNL -regular diet #Prophylaxis -Hep SQ 5Ku TID #Dispo -admit to med-surg Visit type - Emergency Visit Emergency Visit: Yes ED Registration Date: 09/18/17 Care time: The patient presented to the Emergency Department on the above date and was hospitalized for further evaluation of their emergent condition. - New Patient This patient is new to me today: No - Critical Care Critical Care patient: No
[2017-09-30] MEDS ORDERED: PT OWN MED DRAWER 7, Y5N ONE (20:24)
[2017-09-30] MEDS: DOCUSATE SODIUM 100 MG CAPSULE (FP) PO SCH (21:08)
[2017-09-30] MEDS: MIRTAZAPINE 30 MG TABLET (FP) PO SCH (21:08)
[2017-10-01] MEDS: HEPARIN NA (PORCINE) 5,000 UNITS/ML 1ML VIAL SQ SCH ×3 (07:04→22:45)
[2017-10-01 07:49] LABS: BASO % 1.1 % (0-2.0); EOS % 7.7 % (0-4.5); HEMATOCRIT 37.1 % (35.4-49); HEMOGLOBIN 12.4 GM/dL (11.7-16.9); LYMPH % 24.8 % (8-40); MCH 29.5 pg (25.7-33.7); MCHC 33.5 g/dl (32.0-35.9); MEAN PLT VOLUME 6.8 fl (7.5-11.1); MONO % 11.7 % (3.8-10.2); NEUT % 54.7 % (42.8-82.8); PLATELET COUNT 358 K/MM3 (134-434); RBC 4.21 M/mm3 (4.00-5.60); WHITE BLOOD COUNT 9.2 K/mm3 (4.0-10.0)
[2017-10-01 08:11] LABS: ALBUMIN 3.2 g/dl (3.4-5.0); CHLORIDE 103 mmol/L (98-107); POTASSIUM 4.3 mmol/L (3.5-5.1); SODIUM 140 mmol/L (136-145)
[2017-10-01 08:16] LABS: ALK PHOS 91 U/L (45-117); ANION GAP 9 (8-16); BILIRUBIN,TOTAL 0.6 mg/dL (0.2-1.0); BLOOD UREA NITROGEN 20 mg/dL (7-18); CALCIUM 8.7 mg/dL (8.5-10.1); CO2 28 mmol/L (21-32); CREATININE 0.6 mg/dL (0.7-1.3); GLUCOSE,RANDOM 94 mg/dL (74-106); MAGNESIUM 2.5 mg/dL (1.8-2.4); PHOSPHOROUS 4.2 mg/dL (2.5-4.9); SGOT/AST 45 U/L (15-37); SGPT/ALT 143 U/L (12-78); TOT PROT 6.6 g/dl (6.4-8.2)
[2017-10-01] MEDS: MAGNESIUM OXIDE 400 MG TABLET (FP) PO SCH (09:14)
[2017-10-01] MEDS: THIAMINE HCL 100 MG TABLET (FP) PO SCH ×2 (09:15→22:45)
[2017-10-01] MEDS: MULTIVITAMINS (DAILY MVI) TABLET (FP) PO SCH (09:15)
[2017-10-01] MEDS: POLYETHYLENE GLYCOL 3350 119 GM BTL PO SCH (09:15)
[2017-10-01] MEDS: AMMONIUM LACTATE 12% LOTION 225 GM BOTTLE TP SCH (09:15)
[2017-10-01] MEDS: PANTOPRAZOLE 40 MG TABLET (FP) PO SCH ×2 (09:15→22:45)
--- NOTE | 2017-10-01 14:10 | PN ---
Teaching Attending Note Name of Resident: Benja Guillaume ATTENDING PHYSICIAN STATEMENT I saw and evaluated the patient. I reviewed the resident's note and discussed the case with the resident. I agree with the resident's findings and plan as documented. SUBJECTIVE: OBJECTIVE: Vital Signs Period Temp Pulse Resp BP Sys/Bravo Pulse Ox Last 24 Hr 97.8 F-98.4 F 95-104 18-20 126-132/75-80 96-96 Laboratory Results - last 24 hr 09/29/17 10/01/17 10/01/17 08:25 06:00 06:00 WBC 9.2 RBC 4.21 Hgb 12.4 Hct 37.1 MCV 88.0 MCH 29.5 MCHC 33.5 RDW 14.0 Plt Count 358 MPV 6.8 L Neutrophils % 54.7 Lymphocytes % 24.8 Monocytes % 11.7 H Eosinophils % 7.7 H Basophils % 1.1 Sodium 140 Potassium 4.3 Chloride 103 Carbon Dioxide 28 Anion Gap 9 BUN 20 H D Creatinine 0.6 L Creat Clearance w eGFR > 60 Random Glucose 94 Calcium 8.7 Phosphorus 4.2 Magnesium 2.5 H Total Bilirubin 0.6 AST 45 H D ALT 143 H D Alkaline Phosphatase 91 Total Protein 6.6 Albumin 3.2 L Free T3 4.1 Current Medications Generic Name Dose Route Start Last Admin Trade Name Freq PRN Reason Stop Dose Admin Cyclobenzaprine HCl 5 mg 09/28/17 12:03 09/30/17 21:07 Flexeril - PO 5 mg TID PRN Administration muscle tension relieve Docusate Sodium 200 mg 09/28/17 22:00 09/30/17 21:08 Colace - PO Not Given HS [facility] Heparin Sodium (Porcine) 5,000 unit 09/24/17 22:00 10/01/17 13:06 Heparin - SQ Not Given TID [facility] Sodium Chloride 1,000 mls @ 100 mls/hr 09/29/17 13:15 09/30/17 21:07 Normal Saline - IV 100 mls/hr ASDIR NARCISA Administration Lactic Acid 1 applic 09/24/17 14:27 10/01/17 09:15 Lac-Hydrin 12 TP 1 applic DAILY [facility] Administration Magnesium Oxide 400 mg 09/28/17 11:45 10/01/17 09:14 Mag-Ox - PO 10/03/17 11:44 400 mg DAILY [facility] Administration Mirtazapine 30 mg 09/28/17 22:00 09/30/17 21:08 Remeron - PO 30 mg HS [facility] Administration Multivitamins/Minerals/Vitamin C 1 tab 09/19/17 10:00 10/01/17 09:15 Tab-A-Vit - PO 1 tab DAILY [facility] Administration Pantoprazole Sodium 40 mg 09/28/17 22:00 10/01/17 09:15 Protonix - PO 40 mg BID [facility] Administration Polyethylene Glycol 17 gm 09/19/17 11:00 10/01/17 09:15 Miralax (For Daily Use) - PO Not Given DAILY [facility] Thiamine HCl 100 mg 09/21/17 11:00 10/01/17 09:15 Vitamin B1 - PO 100 mg BID [facility] Administration Tramadol HCl 25 mg 09/28/17 18:50 09/30/17 21:07 Ultram - PO 25 mg Q8H PRN Administration PAIN LEVEL 6-10 ASSESSMENT AND PLAN: 1. Bilateral foot pain secondary to frostbite - Continue Tramadol as needed, Flexeril as needed 2. Severe malnutrition - Continue Remeron, Magic Cup, Prosource, Ensure 3. Disposition - Not accepted to rehab - Continue PT - Plan for discharge to assisted
--- NOTE | 2017-10-01 20:54 | PN ---
Physical Exam: SUBJECTIVE: Patient seen and examined at bedside. Patient states that he still cannot sleep due to the pain. Per nursing notes, the patient was noted to be sleeping the majority of the day. OBJECTIVE: Vital Signs Period Temp Pulse Resp BP Sys/Bravo Pulse Ox Last 24 Hr 97.8 F-98.4 F 95-104 20-20 120-130/70-75 96-96 GENERAL: The patient is awake, alert, and fully oriented, in no acute distress. NECK: Trachea midline, full range of motion, supple. LUNGS: Breath sounds equal, clear to auscultation bilaterally, no wheezes, no crackles, no accessory muscle use. HEART: Regular rate and rhythm, S1, S2 without murmur, rub or gallop. ABDOMEN: Soft, nontender, nondistended, normoactive bowel sounds, no guarding, no rebound, no hepatosplenomegaly, no masses. EXTREMITIES: 2+ pulses, warm, well-perfused, no edema. NEUROLOGICAL: Cranial nerves II through X grossly intact. Normal speech, gait not observed SKIN: Warm, dry, normal turgor, no rashes or lesions noted. Patient withdraws in pain when feet palpated, though this is not seen when feet palpated while patient asleep Laboratory Results - last 24 hr 10/01/17 10/01/17 06:00 06:00 WBC 9.2 RBC 4.21 Hgb 12.4 Hct 37.1 MCV 88.0 MCH 29.5 MCHC 33.5 RDW 14.0 Plt Count 358 MPV 6.8 L Neutrophils % 54.7 Lymphocytes % 24.8 Monocytes % 11.7 H Eosinophils % 7.7 H Basophils % 1.1 Sodium 140 Potassium 4.3 Chloride 103 Carbon Dioxide 28 Anion Gap 9 BUN 20 H D Creatinine 0.6 L Creat Clearance w eGFR > 60 Random Glucose 94 Calcium 8.7 Phosphorus 4.2 Magnesium 2.5 H Total Bilirubin 0.6 AST 45 H D ALT 143 H D Alkaline Phosphatase 91 Total Protein 6.6 Albumin 3.2 L Active Medications Generic Name Dose Route Start Last Admin Trade Name Freq PRN Reason Stop Dose Admin Cyclobenzaprine HCl 5 mg 09/28/17 12:03 09/30/17 21:07 Flexeril - PO 5 mg TID PRN Administration muscle tension relieve Docusate Sodium 200 mg 09/28/17 22:00 09/30/17 21:08 Colace - PO Not Given HS [facility] Heparin Sodium (Porcine) 5,000 unit 09/24/17 22:00 10/01/17 13:06 Heparin - SQ Not Given TID [facility] Sodium Chloride 1,000 mls @ 100 mls/hr 09/29/17 13:15 09/30/17 21:07 Normal Saline - IV 100 mls/hr ASDIR N[facility] Administration Ibuprofen 200 mg 10/01/17 19:54 Motrin - PO Q6H PRN PAIN LEVEL 4 - 6 Lactic Acid 1 applic 09/24/17 14:27 10/01/17 09:15 Lac-Hydrin 12 TP 1 applic DAILY [facility] Administration Mirtazapine 30 mg 09/28/17 22:00 09/30/17 21:08 Remeron - PO 30 mg HS [facility] Administration Multivitamins/Minerals/Vitamin C 1 tab 09/19/17 10:00 10/01/17 09:15 Tab-A-Vit - PO 1 tab DAILY [facility] Administration Pantoprazole Sodium 40 mg 09/28/17 22:00 10/01/17 09:15 Protonix - PO 40 mg BID [facility] Administration Polyethylene Glycol 17 gm 09/19/17 11:00 10/01/17 09:15 Miralax (For Daily Use) - PO Not Given DAILY [facility] Thiamine HCl 100 mg 09/21/17 11:00 10/01/17 09:15 Vitamin B1 - PO 100 mg BID [facility] Administration ASSESSMENT/PLAN: The patient is a 52 yo homeless man who is admitted for b/l foot pain and elevated CPK. #B/l foot pain -pt rejected for SNF -pt noted to walk 20 ft w/ PT today; will encourage continued participation -due to the discrepancy between the patient's complaints, the physical exam and nursing notes, there is concern for malingering in this patient. -As we are unable to find a SNF for the patient, Will begin to [facility] or other housing #Malnutrition -continue with magic cup, regular diet, prosource, ensure #FEN -no fluids indicated -lytes WNL -regular diet #Prophylaxis -Hep SQ 5Ku TID #Dispo -admit to med-surg Visit type - Emergency Visit Emergency Visit: Yes ED Registration Date: 09/18/17 Care time: The patient presented to the Emergency Department on the above date and was hospitalized for further evaluation of their emergent condition. - New Patient This patient is new to me today: No - Critical Care Critical Care patient: No
[2017-10-01] MEDS ORDERED: PT OWN MED DRAWER 7, Y5N ONE (22:11)
[2017-10-01] MEDS: IBUPROFEN 400 MG TABLET (FP) PO PRN (22:44)
[2017-10-01] MEDS: MIRTAZAPINE 30 MG TABLET (FP) PO SCH (22:45)
[2017-10-01] MEDS: SODIUM CHLORIDE 1,000 ML IV SCH (22:45)
[2017-10-01] MEDS: DOCUSATE SODIUM 100 MG CAPSULE (FP) PO SCH (22:45)
[2017-10-02] MEDS: CYCLOBENZAPRINE HCL 10 MG TABLET (FP) PO PRN ×2 (00:56→18:44)
[2017-10-02] MEDS: IBUPROFEN 400 MG TABLET (FP) PO PRN ×2 (05:03→18:44)
[2017-10-02] MEDS: HEPARIN NA (PORCINE) 5,000 UNITS/ML 1ML VIAL SQ SCH ×3 (05:03→22:17)
[2017-10-02] MEDS: MULTIVITAMINS (DAILY MVI) TABLET (FP) PO SCH (10:23)
[2017-10-02] MEDS: THIAMINE HCL 100 MG TABLET (FP) PO SCH ×2 (10:23→22:19)
[2017-10-02] MEDS: PANTOPRAZOLE 40 MG TABLET (FP) PO SCH ×2 (10:23→22:19)
[2017-10-02] MEDS: POLYETHYLENE GLYCOL 3350 119 GM BTL PO SCH (10:24)
[2017-10-02] MEDS: AMMONIUM LACTATE 12% LOTION 225 GM BOTTLE TP SCH (10:24)
--- NOTE | 2017-10-02 16:14 | PN ---
Physical Exam: SUBJECTIVE: Patient seen and examined at bedside. This am, the patient was found sleeping in bed. Patient did not withdraw from pain while asleep. Patient uncooperative with physical exam this AM OBJECTIVE: Vital Signs Period Temp Pulse Resp BP Sys/Bravo Pulse Ox Last 24 Hr 97.8 F-98.2 F 94-100 18-20 102-124/60-82 98 GENERAL: The patient is awake, alert, and fully oriented, in no acute distress. NECK: Trachea midline, full range of motion, supple. LUNGS: Breath sounds equal, clear to auscultation bilaterally, no wheezes, no crackles, no accessory muscle use. HEART: Regular rate and rhythm, S1, S2 without murmur, rub or gallop. ABDOMEN: Soft, nontender, nondistended, normoactive bowel sounds, no guarding, no rebound, no hepatosplenomegaly, no masses. EXTREMITIES: 2+ pulses, warm, well-perfused, no edema. NEUROLOGICAL: Cranial nerves II through X grossly intact. Normal speech, gait not observed SKIN: Warm, dry, normal turgor, no rashes or lesions noted. No tenderness to palpation over both feet. Active Medications Generic Name Dose Route Start Last Admin Trade Name Freq PRN Reason Stop Dose Admin Cyclobenzaprine HCl 5 mg 09/28/17 12:03 10/02/17 00:56 Flexeril - PO 5 mg TID PRN Administration muscle tension relieve Docusate Sodium 200 mg 09/28/17 22:00 10/01/17 22:45 Colace - PO Not Given HS [facility] Heparin Sodium (Porcine) 5,000 unit 09/24/17 22:00 10/02/17 14:09 Heparin - SQ Not Given TID [facility] Ibuprofen 200 mg 10/01/17 19:54 10/02/17 05:03 Motrin - PO 200 mg Q6H PRN Administration PAIN LEVEL 4 - 6 Lactic Acid 1 applic 09/24/17 14:27 10/02/17 10:24 Lac-Hydrin 12 TP Not Given DAILY [facility] Mirtazapine 30 mg 09/28/17 22:00 10/01/17 22:45 Remeron - PO 30 mg HS [facility] Administration Multivitamins/Minerals/Vitamin C 1 tab 09/19/17 10:00 10/02/17 10:23 Tab-A-Vit - PO 1 tab DAILY [facility] Administration Pantoprazole Sodium 40 mg 09/28/17 22:00 10/02/17 10:23 Protonix - PO 40 mg BID [facility] Administration Polyethylene Glycol 17 gm 09/19/17 11:00 10/02/17 10:24 Miralax (For Daily Use) - PO Not Given DAILY [facility] Thiamine HCl 100 mg 09/21/17 11:00 10/02/17 10:23 Vitamin B1 - PO 100 mg BID [facility] Administration ASSESSMENT/PLAN: The patient is a 52 yo homeless man who is admitted for b/l foot pain and elevated CPK. #B/l foot pain -pt noted to only walk 5 ft w/ PT today; will encourage continued participation -due to the discrepancy between the patient's complaints, the physical exam and nursing notes, there is concern for malingering in this patient. #Malnutrition -continue with magic cup, regular diet, prosource, ensure #FEN -no fluids indicated -lytes WNL -regular diet #Prophylaxis -Hep SQ 5Ku TID #Dispo -admit to med-surg -As we are unable to find a SNF for the patient, Will begin to discharge plan to [facility] or other housing Visit type - Emergency Visit Emergency Visit: Yes ED Registration Date: 09/18/17 Care time: The patient presented to the Emergency Department on the above date and was hospitalized for further evaluation of their emergent condition. - New Patient This patient is new to me today: No - Critical Care Critical Care patient: No
--- NOTE | 2017-10-02 17:35 | PN ---
Teaching Attending Note Name of Resident: Benja Guillaume ATTENDING PHYSICIAN STATEMENT I saw and evaluated the patient. I reviewed the resident's note and discussed the case with the resident. I agree with the resident's findings and plan as documented. SUBJECTIVE: pain in feet OBJECTIVE: NAD, thin, AAox3 Cv :RRR Lungs: CTAB Abd: soft, NT , ND , NL BS Ext: no edema on legs or feet . dry scaly skin on plantar feet . DP 2+ , ad PT 2 + b/l ASSESSMENT AND PLAN: 52 y/o man with no recent medical care who presented with b/l foot pain and inability to ambulate . He was found to have Rhabdo 1- Acute Rhabdo: devolved 2-Frostbite to b/l feet:improved. PT , ambulation , pain control 3- Weight loss: - EGD with chronic gastritis. no Hp - possible Johnson's . cont pPI x 3 months then repeat EGD. . dispo : pending dc to [facility]
[2017-10-02] MEDS ORDERED: PT OWN MED DRAWER 7, Y5N ONE (20:24)
[2017-10-02] MEDS: DOCUSATE SODIUM 100 MG CAPSULE (FP) PO SCH (22:17)
[2017-10-02] MEDS: MIRTAZAPINE 30 MG TABLET (FP) PO SCH (23:09)
[2017-10-03] MEDS: HEPARIN NA (PORCINE) 5,000 UNITS/ML 1ML VIAL SQ SCH ×3 (06:09→23:00)
[2017-10-03] MEDS: CYCLOBENZAPRINE HCL 10 MG TABLET (FP) PO PRN (06:10)
[2017-10-03] MEDS: IBUPROFEN 400 MG TABLET (FP) PO PRN (06:12)
[2017-10-03] MEDS: THIAMINE HCL 100 MG TABLET (FP) PO SCH ×2 (09:48→23:05)
[2017-10-03] MEDS: POLYETHYLENE GLYCOL 3350 119 GM BTL PO SCH (09:48)
[2017-10-03] MEDS: AMMONIUM LACTATE 12% LOTION 225 GM BOTTLE TP SCH (09:48)
[2017-10-03] MEDS: MULTIVITAMINS (DAILY MVI) TABLET (FP) PO SCH (09:48)
[2017-10-03] MEDS: PANTOPRAZOLE 40 MG TABLET (FP) PO SCH ×2 (09:48→23:05)
--- NOTE | 2017-10-03 19:03 | PN ---
Teaching Attending Note Name of Resident: Benja Guillaume ATTENDING PHYSICIAN STATEMENT I saw and evaluated the patient. I reviewed the resident's note and discussed the case with the resident. I agree with the resident's findings and plan as documented. SUBJECTIVE: numbness in plantar feet OBJECTIVE: NAD, thin, AAox3 Cv :RRR Lungs: CTAB Ext: no edema on legs or feet . dry scaly skin on plantar feet . DP 2+ , ad PT 2 + b/l ASSESSMENT AND PLAN: 52 y/o man with no recent medical care who presented with b/l foot pain and inability to ambulate . He was found to have Rhabdo 1- Acute Rhabdo: revolved 2-Frostbite to b/l feet:improved. PT , ambulation , pain control 3- Weight loss: - EGD with chronic gastritis. no Hp - possible Johnson's . cont pPI x 3 months then repeat EGD. Dc to a intermediate with wheel chair
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
[2017-10-03] MEDS ORDERED: PT OWN MED DRAWER 7, Y5N ONE (22:01)
[2017-10-03] MEDS: MIRTAZAPINE 30 MG TABLET (FP) PO SCH (23:05)
[2017-10-03] MEDS: DOCUSATE SODIUM 100 MG CAPSULE (FP) PO SCH (23:45)
[2017-10-04] MEDS: HEPARIN NA (PORCINE) 5,000 UNITS/ML 1ML VIAL SQ SCH ×3 (07:37→22:51)
[2017-10-04] MEDS: PANTOPRAZOLE 40 MG TABLET (FP) PO SCH ×2 (09:00→22:57)
[2017-10-04] MEDS: POLYETHYLENE GLYCOL 3350 119 GM BTL PO SCH (09:00)
[2017-10-04] MEDS: MULTIVITAMINS (DAILY MVI) TABLET (FP) PO SCH (09:00)
[2017-10-04] MEDS: AMMONIUM LACTATE 12% LOTION 225 GM BOTTLE TP SCH (09:00)
[2017-10-04] MEDS: THIAMINE HCL 100 MG TABLET (FP) PO SCH ×2 (09:00→22:55)
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
--- NOTE | 2017-10-04 15:09 | PN ---
Teaching Attending Note Name of Resident: Cathie Farr ATTENDING PHYSICIAN STATEMENT I saw and evaluated the patient. I reviewed the resident's note and discussed the case with the resident. I agree with the resident's findings and plan as documented. SUBJECTIVE: no fever or chills , still has numbness in feet OBJECTIVE: NAD, thin Cv: RRR Lungs: CTAB Ext: no edema on legs or feet . dry scaly skin on plantar feet . DP 2+ , ad PT 2 + b/l ASSESSMENT AND PLAN: 52 y/o man with no recent medical care who presented with b/l foot pain and inability to ambulate . He was found to have Rhabdo 1- Acute Rhabdo: revolved 2-Frostbite to b/l feet:improved. 3- Weight loss: - EGD with chronic gastritis. no Hp - possible Johnson's . cont pPI x 3 months then repeat EGD. was discharged yesterday but wheel chair was not ready, so he will leave today
[2017-10-04] MEDS ORDERED: PT OWN MED DRAWER 7, Y5N ONE (20:49)
[2017-10-04] MEDS: CYCLOBENZAPRINE HCL 10 MG TABLET (FP) PO PRN (22:51)
[2017-10-04] MEDS: DOCUSATE SODIUM 100 MG CAPSULE (FP) PO SCH (22:51)
[2017-10-04] MEDS: MIRTAZAPINE 30 MG TABLET (FP) PO SCH (22:54)
[2017-10-04] MEDS: IBUPROFEN 400 MG TABLET (FP) PO PRN (22:54)
[2017-10-05] MEDS: HEPARIN NA (PORCINE) 5,000 UNITS/ML 1ML VIAL SQ SCH ×3 (05:20→22:36)
[2017-10-05] MEDS: IBUPROFEN 400 MG TABLET (FP) PO PRN (05:21)
[2017-10-05] MEDS: THIAMINE HCL 100 MG TABLET (FP) PO SCH ×2 (10:00→22:36)
[2017-10-05] MEDS: PANTOPRAZOLE 40 MG TABLET (FP) PO SCH ×2 (10:00→22:31)
[2017-10-05] MEDS: MULTIVITAMINS (DAILY MVI) TABLET (FP) PO SCH (10:00)
[2017-10-05] MEDS: POLYETHYLENE GLYCOL 3350 119 GM BTL PO SCH (10:00)
[2017-10-05] MEDS: AMMONIUM LACTATE 12% LOTION 225 GM BOTTLE TP SCH (10:00)
--- NOTE | 2017-10-05 15:08 | PN ---
Teaching Attending Note Name of Resident: Cathie Farr ATTENDING PHYSICIAN STATEMENT I saw and evaluated the patient. I reviewed the resident's note and discussed the case with the resident. I agree with the resident's findings and plan as documented. SUBJECTIVE: numbness in feet OBJECTIVE: NAD, thin Cv: RRR Lungs: CTAB Ext: no edema on legs or feet . dry scaly skin on plantar feet . DP 2+ , ad PT 2 + b/l ASSESSMENT AND PLAN: 52 y/o man with no recent medical care who presented with b/l foot pain and inability to ambulate . He was found to have Rhabdo 1- Acute Rhabdo: revolved 2-Frostbite to b/l feet:improved. 3- Weight loss: - EGD with chronic gastritis. no Hp - possible Johnson's . cont pPI x 3 months then repeat EGD. still waiting for wheel chair
[2017-10-05] MEDS: MIRTAZAPINE 30 MG TABLET (FP) PO SCH (22:31)
[2017-10-05] MEDS: DOCUSATE SODIUM 100 MG CAPSULE (FP) PO SCH (22:31)
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
[2017-10-06] MEDS: HEPARIN NA (PORCINE) 5,000 UNITS/ML 1ML VIAL SQ SCH ×3 (06:57→22:52)
[2017-10-06] MEDS: THIAMINE HCL 100 MG TABLET (FP) PO SCH ×2 (17:11→22:52)
[2017-10-06] MEDS: PANTOPRAZOLE 40 MG TABLET (FP) PO SCH ×2 (17:11→22:52)
[2017-10-06] MEDS: AMMONIUM LACTATE 12% LOTION 225 GM BOTTLE TP SCH (17:11)
[2017-10-06] MEDS: POLYETHYLENE GLYCOL 3350 119 GM BTL PO SCH (17:11)
[2017-10-06] MEDS: MULTIVITAMINS (DAILY MVI) TABLET (FP) PO SCH (17:11)
--- NOTE | 2017-10-06 19:34 | PN ---
Progress Note (short form) - Note Progress Note: Subjective: No fever or chills . no abd pain. numbness in feet Objective: Vital Signs: Last Vital Signs Temp Pulse Resp BP Pulse Ox 98.5 F 115 H 20 122/75 97 10/06/17 17:08 10/06/17 17:08 10/06/17 17:08 10/06/17 17:08 10/05/17 21:00 Physical Exam: NAD, thin Cv: RRR Lungs: CTAB Ext: no edema on legs or feet . dry scaly skin on plantar feet . DP 2+ , ad PT 2 + b/l ASSESSMENT AND PLAN: 52 y/o man with no recent medical care who presented with b/l foot pain and inability to ambulate . He was found to have Rhabdo 1- Acute Rhabdo: revolved 2-Frostbite to b/l feet:improved. 3- Weight loss: - EGD with chronic gastritis. no Hp - possible Johnson's . cont pPI x 3 months then repeat EGD. still waiting for wheel chair Visit type - Emergency Visit Emergency Visit: Yes ED Registration Date: 09/18/17 Care time: The patient presented to the Emergency Department on the above date and was hospitalized for further evaluation of their emergent condition. - New Patient This patient is new to me today: No - Critical Care Critical Care patient: No
[2017-10-06] MEDS: MIRTAZAPINE 30 MG TABLET (FP) PO SCH (22:52)
[2017-10-06] MEDS: DOCUSATE SODIUM 100 MG CAPSULE (FP) PO SCH (22:52)
[2017-10-07] MEDS: HEPARIN NA (PORCINE) 5,000 UNITS/ML 1ML VIAL SQ SCH ×2 (06:53→13:06)
[2017-10-07 07:04] VITALS: PULSE 98
[2017-10-07] MEDS: MULTIVITAMINS (DAILY MVI) TABLET (FP) PO SCH (09:22)
[2017-10-07] MEDS: THIAMINE HCL 100 MG TABLET (FP) PO SCH (09:22)
[2017-10-07] MEDS: PANTOPRAZOLE 40 MG TABLET (FP) PO SCH (09:22)
[2017-10-07] MEDS: POLYETHYLENE GLYCOL 3350 119 GM BTL PO SCH (09:22)
[2017-10-07] MEDS: AMMONIUM LACTATE 12% LOTION 225 GM BOTTLE TP SCH (09:47)
[2017-10-07 15:46] VITALS: BP 111/78; TEMP 97.5
--- NOTE | 2017-10-07 19:24 | PN ---
Teaching Attending Note Name of Resident: Benja Guillaume ATTENDING PHYSICIAN STATEMENT I saw and evaluated the patient. I reviewed the resident's note and discussed the case with the resident. I agree with the resident's findings and plan as documented. SUBJECTIVE: pain in feet OBJECTIVE: NAD, Ext: no edema on legs or feet . dry scaly skin on plantar feet . DP 2+ , ad PT 2 + b/l ASSESSMENT AND PLAN: 52 y/o man with no recent medical care who presented with b/l foot pain and inability to ambulate . He was found to have Rhabdo 1- Acute Rhabdo: revolved 2-Frostbite to b/l feet:improved. 3- Weight loss: - EGD with chronic gastritis. no Hp - possible Johnson's . cont pPI x 3 months then repeat EGD. dc to skilled nursing
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
== END 2017-10-07 16:15 | disposition home or self-care (01) | DRG 351 ==
LOC: JER 16:40 → JERBED 23:35 → OBSVTOIN 09-18 01:50 → J7W 09-18 04:24
PROVIDERS: ADMIT Internal Medicine; ATTEND Internal Medicine
PROC: 0DD68ZX Extraction of Stomach, Via Natural or Artificial Opening Endoscopic, Diagnostic (ICD-10-PCS; 2017-09-24)
PROC: 0DD98ZX Extraction of Duodenum, Via Natural or Artificial Opening Endoscopic, Diagnostic (ICD-10-PCS; principal; 2017-09-24 08:00)
PROC: 0HBQXZZ Excision of Finger Nail, External Approach (ICD-10-PCS; 2017-09-26)
DX: M62.82 Rhabdomyolysis (principal); F32.9 Major depressive disorder, single episode, unspecified; Z59.0 Homelessness; R07.89 Other chest pain; Z68.1 Body mass index [BMI] 19.9 or less, adult; E43 Unspecified severe protein-calorie malnutrition; X31.XXXA Exposure to excessive natural cold, initial encounter; Y93.9 Activity, unspecified; Y92.89 Other specified places as the place of occurrence of the external cause; Y99.9 Unspecified external cause status; B35.1 Tinea unguium; R63.4 Abnormal weight loss; R10.11 Right upper quadrant pain; Z72.0 Tobacco use; K20.9 Esophagitis, unspecified; M79.672 Pain in left foot; M79.671 Pain in right foot; R64 Cachexia
CPT/HCPCS: 36415; 71045-TC-FY; 73630-TC-LT; 73630-TC-RT-FY; 76705-TC; 80048; 80053; 80307; 81003; 81015; 82248; 82272; 82550; 82553; 82607; 82746; 82962; 83036; 83605; 83690; 83735; 84100; 84134; 84439; 84443; 84481; 84484; 85025; 85027; 85610; 85651; 85730; 86140; 87040; 87086; 87389; 88305-TC; 93005; 93010; 97116-GP; 97161-GP; 99284-25; G0378; J0131; J1644; J7030

== ENCOUNTER 2017-10-08 19:55 | Emergency (ER) | payer OTHER ==
--- NOTE | 2017-10-08 20:45 | PDOC ---
Rapid Medical Evaluation Time Seen by Provider: 10/08/17 20:42 Medical Evaluation: Allergies Allergy/AdvReac Type Severity Reaction Status Date / Time No Known Allergies Allergy Verified 09/17/17 17:02 I have performed a brief in-person evaluation of this patient. The patient presents with a chief complaint of: none. was discharged yesterday after 2 week stay on [facility]. He was sent to [facility]. Came back last night. Was sent to [facility] [place]. Patient states [facility] told him he had to come back here. He has no complaints. Pertinent physical exam findings: none I have ordered the following: nothing The patient will proceed to the ED for further evaluation.
[2017-10-08 20:48] VITALS: BMI 17.8
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
--- NOTE | 2017-10-08 23:28 | PDOC ---
*Physical Exam - Vital Signs Last Vital Signs Temp Pulse Resp BP Pulse Ox 97.9 F 113 H 20 108/71 97 10/08/17 20:46 10/08/17 20:46 10/08/17 20:46 10/08/17 20:46 10/08/17 20:46 Medical Decision Making - Medical Decision Making 10/08/17 23:28 agree with care from NICHOLE Lord *DC/Admit/Observation/Transfer Diagnosis at time of Disposition: Frostbite, Homelessness - Discharge Dispostion Disposition: HOME Condition at time of disposition: Stable - Referrals Referrals: Marcus Blue MD [Staff Physician] - - Patient Instructions Printed Discharge Instructions: DI for Frostbite Additional Instructions: Please go to the Department of History Faculty Member for further placement. Return to the ED if you have fevers, chills, increased pain, or have any changes in your symptoms. - Post Discharge Activity
[2017-10-09] MEDS ORDERED: IBUPROFEN 600 MG TABLET (FP) PO STA (02:48)
[2017-10-09] MEDS ORDERED: IBUPROFEN 600 MG TABLET (FP) PO ONE (02:49)
--- NOTE | 2017-10-09 07:10 | PDOC ---
*Physical Exam - Vital Signs Last Vital Signs Temp Pulse Resp BP Pulse Ox 97.9 F 113 H 20 108/71 97 10/08/17 20:46 10/08/17 20:46 10/08/17 20:46 10/08/17 20:46 10/08/17 20:46 ED Treatment Course - Medications Given in the ED: ED Medications Discontinued Medications Generic Name Dose Route Start Last Admin Trade Name Terry PRN Reason Stop Dose Admin Ibuprofen 600 mg 10/09/17 02:48 10/09/17 02:53 Motrin - PO 10/09/17 02:49 600 mg ONCE STA Administration Medical Decision Making - Medical Decision Making 10/09/17 07:09 Received sign out from NICHOLE Lord. Pt. is pending social work consult for homelessness. 10/09/17 12:16 No complaints at this time. Social work arranged ambulette for transport to psych social worker. *DC/Admit/Observation/Transfer Diagnosis at time of Disposition: Homelessness Frostbite Qualifiers: Encounter type: subsequent encounter Qualified Code(s): T33.90XD - Superficial frostbite of unspecified sites, subsequent encounter - Discharge Dispostion Disposition: HOME Condition at time of disposition: Stable Admit: No - Referrals Referrals: Marcus Blue MD [Staff Physician] - - Patient Instructions Printed Discharge Instructions: DI for Frostbite Additional Instructions: Please go to the Department of Material Handler Loader for further placement. Return to the ED if you have fevers, chills, increased pain, or have any changes in your symptoms. - Post Discharge Activity
[2017-10-09 15:36] VITALS: BP 112/74; PULSE 80; TEMP 98
== END 2017-10-09 15:33 | disposition home or self-care (01) ==
LOC: JER 19:55
DX: Z59.0 Homelessness (principal); T33.90XD Superficial frostbite of unspecified sites, subsequent encounter
CPT/HCPCS: 99282-25